=== PATIENT | male | born 1965 | race Caucasian/White ===

== ENCOUNTER 2024-09-22 16:31 | Inpatient (IN) ==
--- NOTE | 2024-09-22 17:08 | Emergency Department Note ---
Impression & Plan Parkinson disease, PSP (progressive supranuclear palsy), Fall, Decubitus ulcer of sacral area ED Provider Note Provider: Jasper Parrish MD CHIEF COMPLAINT: Fall HISTORY OF PRESENT ILLNESS: Patient is a 59-year-old gentleman unfortunate history of advanced Parkinson's disease as well as PSP presenting here today the ambulance from his home. Patient states he was trying to fill 2 of his water bottles and tripped on a snowshoe and fell to the ground. Patient states he is able to extend his hands and lower himself and he did not strike his head or hurt his face at all. Denies injuring his arms. Denies any other pain complaints. Nursing report that EMS had concerns that the patient's house was not in the best of States. Patient states he does live there with his mother who is elderly and that his brother lives nearby and checks on him frequently. He denies any loss of consciousness. No chest pain or shortness of breath due to. Patient has been to wound care regarding some buttock irritations and brother has been trying to bandage these as able. States they are looking somewhat better. PAST MEDICAL HISTORY: As noted above MEDICATIONS: Reviewed home medication list no anticoagulants SOCIAL HISTORY: Resides at home PHYSICAL EXAM: GENERAL: alert and oriented in no acute distress on stretcher Head: normocephalic and atraumatic EYES: No injection, discharge or icterus. PERRL, EOMI. NECK: Trachea midline. Supple. ENT: Mucous membranes pink and moist. LUNGS: Airway patent. No retractions. Breath sounds clear HEART: Regular rate and rhythm. No chest wall tenderness ABDOMEN: Soft and non-tender, without guarding or rebound. No flank tenderness. SKIN: Acyanotic, warm, dry, there is some bilateral slight right area and grade 1 decubitus ulcerations on the bilateral buttocks but no large ulcers or fluctuant areas noted. EXTREMITIES: Without swelling, tenderness or deformity NEUROLOGICAL: No facial droop with some slight dysarthria at times. Generally weak. Normal strength and tone in the extremities. Sensation to gross touch normal. Patient's laboratory studies and imaging reviewed. Differential includes traumatic injury, infection, dehydration, metabolic abnormality, hypo/hyperglycemia, electrolyte disturbance, anemia, hypoxia, cardiac sources, intracerebral event, toxicologic, neurologic, as well as other pathologies. IMPRESSION/MEDICAL DECISION MAKING: Patient not on high risk blood thinners. Suffered a fall and with his Parkinson's seems mechanical in nature. No LOC reported. States he lowered himself with his hands. Denies any pain. Patient states he is at his baseline and wishes to go home. Seen with brother who later arrived. Patient be ambulated by nursing to check ambulatory status. Given his lack of complaints do not know that blood work or imaging is necessary at this time. Long discussion with case management the patient agreeable to stay for further evaluation. Wounds of the buttocks are minimal and grade 1 at this time do not appear severely infected or ulcerated or abscessed. Basic blood work ordered. Nursing apply additional wound dressings to the buttocks and will bring in for further care and arrangement of possible home resources for the patient. Do not believe he is septic or superinfected or suffered any significant trauma from his fall today. Do not believe we need additional imaging. Blood work is returned with some leukocytosis. No other significant abnormality. Again the sacral buttock wounds are minimal. Will discuss with the hospitalist team and they will monitor further. Order urine studies to exclude infection here. He is afebrile and does not appear septic at this point. DIAGNOSIS: Fall, Parkinson disease DISPOSITION: Hospitalist will evaluate Patient was agreeable with this plan. Past Med/Surg History Problem List (Updated 09/22/24 @ 20:48 by Jasper Parrish M.D.) Decubitus ulcer of sacral area (Acute) Fall (Acute) Stage III pressure ulcer of buttock Dyspnea on exertion Urinary incontinence EKG abnormalities Tachycardia Ambulatory dysfunction Parkinson disease (Acute) Hypertension Elevated glucose Hyperbilirubinemia PSP (progressive supranuclear palsy) (Acute) Health care maintenance Excessive cerumen in both ear canals Hyperglycemia Medical History Tremor of right hand Sick Elevated TSH Elevated hemoglobin Shingles Elevated blood pressure reading Surgical History H/O oral surgery Family History Grandfather (Maternal) Myocardial infarction Brother Hypertension Mother Rheumatoid arthritis Denies family history of Colon cancer Ovarian cancer Prostate cancer Diabetes Breast cancer Stroke Social History Smoking Status: Never smoker Tobacco Type: Declines Second Hand Exposure: No; Do You Dip or Chew Tobacco: No; Hx Alcohol Use: No Hx Substance Use: No Preferred Language: Chilean Communication Ability: Effective Visual Impairment: Limited Hearing Ability: Normal Clock Repair Technician Required: No Beliefs That Will Affect Care: None marital status: Single Current Living Situation: Parent 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 occupational status: 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 Feels Safe at Home: Yes Childhood Exposure to Second-Hand Smoke: No Dental Care, Regularly: No Physical Activity Frequency: Does not Exercise Seatbelt Use: always Assistive Devices: Cane, Glasses, Lift Chair and Walker Allergies Allergies Allergy/AdvReac Type Severity Reaction Status Date / Time tetanus toxoid, adsorbed AdvReac Severe Significant Verified 09/20/24 13:24 allergic reaction Home Meds Home Medications Medication Instructions Recorded Confirmed ascorbic acid (vitamin C) 1,000 mg 1 gm PO DAILY 01/08/19 09/22/24 tablet cholecalciferol (vitamin D3) 25 1,000 units PO DAILY 01/08/19 09/22/24 mcg (1,000 unit) capsule multivitamin (Daily Multi-Vitamin 1 tab PO DAILY 01/08/19 09/22/24 tablet) docusate sodium 100 mg capsule 100 mg PO DAILY 01/11/24 09/22/24 (Colace) carbidopa 87.5 mg-levodopa ER 350 2 cap PO TID 08/29/24 09/22/24 mg capsule,immed and extend release (Crexont) carbidopa ER 50 mg-levodopa 200 mg 1 tab PO TID 09/22/24 09/22/24 tablet,extended release nystatin 100,000 unit/gram topical 1 applic topical TID 09/22/24 09/22/24 powder (Klayesta) ropinirole 3 mg tablet 3 mg PO TID 09/22/24 09/22/24 Previous Rx's Medication Instructions Recorded lisinopril 40 mg tablet 40 mg PO DAILY #30 tabs 06/19/24 gabapentin 100 mg capsule 100 mg PO TID 30 days #90 caps 07/24/24 amantadine HCl 100 mg capsule 100 mg PO BID #180 caps 08/06/24 Results & Data (ED) Vital Signs Vital Signs - 24 hr 09/22/24 16:42 09/22/24 16:42 09/22/24 17:11 Temperature 37.2 C Temperature Source Temporal Artery Scan Pulse Rate 109 H Pulse Rate [Apical] Pulse Rate from SpO2 Sensor Pulse Rhythm Regular Pulse Rhythm [Apical] Pulse Strength [Apical] Respiratory Rate 16 Respiratory Effort / Characteristics Non-Labored Spontaneous Non-Labored Spontaneous Respiratory Depth Normal Normal Respiratory Pattern Regular Regular Blood Pressure 106/78 Blood Pressure [Right Arm] Blood Pressure Mean 87 Blood Pressure Mean [Right Arm] Blood Pressure Position Lying Blood Pressure Position [Right Arm] Pulse Oximetry 92 Oxygen Delivery Method Room Air Room Air Sepsis Recent Fever Within 48 Hours No Sepsis New/Unexplained Change in Mental Status N/A Sepsis Action Taken by Nursing No Action Required 09/22/24 17:20 09/22/24 17:30 09/22/24 18:30 Temperature Temperature Source Pulse Rate 108 H 105 H 105 H Pulse Rate [Apical] Pulse Rate from SpO2 Sensor 106 H Pulse Rhythm Pulse Rhythm [Apical] Pulse Strength [Apical] Respiratory Rate 20 25 H Respiratory Effort / Characteristics Respiratory Depth Respiratory Pattern Blood Pressure 131/85 132/89 Blood Pressure [Right Arm] Blood Pressure Mean 95 101 Blood Pressure Mean [Right Arm] Blood Pressure Position Blood Pressure Position [Right Arm] Pulse Oximetry 94 Oxygen Delivery Method Sepsis Recent Fever Within 48 Hours Sepsis New/Unexplained Change in Mental Status Sepsis Action Taken by Nursing 09/22/24 20:07 Temperature Temperature Source Pulse Rate Pulse Rate [Apical] 103 H Pulse Rate from SpO2 Sensor Pulse Rhythm Pulse Rhythm [Apical] Regular Pulse Strength [Apical] Normal Respiratory Rate 22 Respiratory Effort / Characteristics Non-Labored Spontaneous Respiratory Depth Normal Respiratory Pattern Regular Blood Pressure Blood Pressure [Right Arm] 165/95 H Blood Pressure Mean Blood Pressure Mean [Right Arm] 118 Blood Pressure Position Blood Pressure Position [Right Arm] Lying Pulse Oximetry 95 Oxygen Delivery Method Room Air Sepsis Recent Fever Within 48 Hours Sepsis New/Unexplained Change in Mental Status Sepsis Action Taken by Nursing Laboratory Data 09/22/24 Unknown 09/22/24 Unknown Lab Results 09/22/24 09/22/24 Range/Units 20:25 Unknown WBC 17.36 H (4.8-10.8) K/ul RBC 5.40 (4.70-6.10) M/uL Hgb 15.7 (14.0-18.0) g/dl Hct 47.3 (42.0-52.0) % MCV 87.6 (80.0-100.0) fL MCH 29.1 (25.0-34.0) pg MCHC 33.2 (32.0-36.0) g/dL RDW Std Deviation 46.0 (36.4-46.3) fL RDW Coeff of Diana 14.4 (11.5-14.5) % Plt Count 259 (130-400) K/uL MPV 9.3 L (9.4-12.4) fL Immature Gran % (Auto) 2.0 % Neut % (Auto) 85.5 % Lymph % (Auto) 6.5 % [place] % (Auto) 5.4 % Eos % (Auto) 0.3 % Baso % (Auto) 0.3 % Neut # (Auto) 14.85 H (1.40-6.50) K/uL Lymph # (Auto) 1.12 L (1.20-3.40) K/uL [place] # (Auto) 0.93 H (0.11-0.59) K/uL Eos # (Auto) 0.05 (0.00-0.50) K/uL Baso # (Auto) 0.06 (0.00-0.20) K/uL Immature Gran # (Auto) 0.35 H (0.01-0.20) K/uL Sodium 135 L (136-145) mmol/L Potassium 3.9 (3.5-5.1) mmol/L Chloride 103 (98-107) mmol/L Carbon Dioxide 24 (21-32) mmol/L Anion Gap 8 (3-11) BUN 22 (6-23) mg/dl Creatinine 0.69 (0.6-1.4) mg/dl Est Cr Clr Drug Dosing 126.5 ml/min eGFR 105.29 BUN/Creatinine Ratio 31.9 H (10-20) Glucose 117 H (70-99(Fasting)) mg/dl Calcium 9.2 (8.6-10.3) mg/dl Total Bilirubin 2.1 H (0.2-1.0) mg/dl AST 24 (13-39) U/L ALT 6 L (7-52) U/L Alkaline Phosphatase 89 (34-104) U/L Total Protein 6.7 (6.0-8.3) gm/dl Albumin 3.9 (3.4-5.0) gm/dl Globulin 2.8 (2.5-4.0) gm/dl Albumin/Globulin Ratio 1.4 (0.9-2) Urine Comment SARS-CoV-2, RNA, NAAT NEGATIVE (NEGATIVE) Discharge Plan Visit Data Chief Complaint: Fall ED Provider: Jasper Parrish Discharge Problem: Parkinson disease, PSP (progressive supranuclear palsy), Fall, Decubitus ulcer of sacral area Patient Disposition: Being Evaluated by Hospitalist Condition: Fair Forms Stand Alone Forms: My [facility] Prescriptions Prescriptions: No Action gabapentin 100 mg capsule 100 mg PO TID 30 Days Qty: 90 2RF amantadine HCl 100 mg capsule 100 mg PO BID Qty: 180 1RF multivitamin [Daily Multi-Vitamin] tablet 1 tab PO DAILY ascorbic acid (vitamin C) 1,000 mg tablet 1 gm PO DAILY cholecalciferol (vitamin D3) 1,000 unit capsule 1,000 units PO DAILY docusate sodium [Colace] 100 mg capsule 100 mg PO DAILY Crexont 87.5-350 mg capsule,IR -extend rel,biphase 2 cap PO TID lisinopril 40 mg tablet 40 mg PO DAILY Qty: 30 5RF nystatin [Klayesta] 100,000 unit/gram powder 1 applic TOPICAL TID ropinirole 3 mg tablet 3 mg PO TID carbidopa-levodopa 50-200 mg tablet extended release 1 tab PO TID Referrals Referrals: Jamie Morfin MD [Primary Care Provider] -
[2024-09-22 18:45] LABS: Hematocrit (blood only) 47.3 % (42.0-52.0); Hemoglobin 15.7 g/dl (14.0-18.0); Immature Granulocytes # (auto) 0.35 K/uL (0.01-0.20); Immature Granulocytes % (auto) 2.0 %; Mean Corpuscular Hemoglobin 29.1 pg (25.0-34.0); Mean Corpuscular Volume 87.6 fL (80.0-100.0); Platelet Count 259 K/uL (130-400); RDW Standard Deviation 46.0 fL (36.4-46.3); Red Blood Count 5.40 M/uL (4.70-6.10); White Blood Count 17.36 K/ul (4.8-10.8)
[2024-09-22 19:03] LABS: Alanine Aminotransferase 6.0 U/L (7-52); Albumin Globulin Ratio 1.4 (0.9-2); Alkaline Phosphatase 89.0 U/L (34-104); Anion Gap 8.0 (3-11); Bilirubin,Total 2.1 mg/dl (0.2-1.0); Blood Urea Nitrogen 22.0 mg/dl (6-23); Calcium 9.2 mg/dl (8.6-10.3); Carbon Dioxide 24.0 mmol/L (21-32); Chloride 103.0 mmol/L (98-107); Creatinine Clr Calc Pharmacy 126.5 ml/min; Globulin 2.8 gm/dl (2.5-4.0); Glucose 117.0 mg/dl (70-99(Fasting)); Potassium 3.9 mmol/L (3.5-5.1); Sodium 135.0 mmol/L (136-145); Total Protein 6.7 gm/dl (6.0-8.3)
--- NOTE | 2024-09-22 19:31 | History & Physical Report ---
Date of Service September 22, 2024 Assessment & Plan (1) Ambulatory dysfunction: (2) Stage III pressure ulcer of buttock: (3) Hyperbilirubinemia: Plan 59-year-old male PMHx advanced Parkinson's disease, HTN, urinary incontinence, and baseline ambulatory dysfunction presenting after reported mechanical fall from home day of arrival. Workup significant for leukocytosis and given pt was covered in urine on arrival, UA pending. Did have very faint expiratory wheezing of anterior chest on exam, but not hypoxic or with complaints; pending CXR. Elevated bilirubin is similar to prior findings, no abdominal pain and therefore not suspecting acute pathology. Will manage wound on buttock and admit for ambulatory dysfunction. #Ambulatory dysfunction/Fall/Parkinson's disease Prior history of ambulatory dysfunction and Parkinson's disease (diagnosed 2017), follows with neurology (last visit 08/29/2024) reporting from fall from home which she reports is mechanical in nature. No current complaints. OF NOTE, Crexont non-formulary and will need brought in by family. Spoke with pharmacist and will provide additional dose of Sinemet the night of admission until Crexont can be brought from home. - CBC with a leukocytosis 17.36, stable H&H; CMP sodium 135 (corrected 135), BUN/creatinine ratio 31.9, glucose 117, bilirubin 2.1- CBC, BMP am - CXR pending - UA not indicative of infection and no bacteria, known urinary incontinence - Vela cath ordered and placed, bladder scan prn - IVF LR @ 80 mL/hr x 500 mL at admission pending further workup - will add more as appropriate - Amantadine, carbidopa levodopa, ropinirole - continue - Fall + aspiration precautions - PT/OT ordered - appreciate assistance - Case management consulted - appreciate assistance #H/o Stage III pressure ulcer of buttocks, R and L/Intertrigo (groin, scrotum) Following with wound healing clinic, most recent visit 09/20/2024. Weekly follow up and home health was to be arranged. Images as above in physical exam portion. - CBC with leukocytosis, however, do not suspect skin source - Wound culture low counts of mixed nedra from 09/20/2024 - Dress w/ Aquacel Ag, Butt paste, ketoconazole -- continue - Rotate q2h - Wound care consulted - appreciate input + recs #Elevated bilirubin H/o abnormal liver enzymes in 2019, evaluated again in 05/2023 and resolved. Currently without abdominal pain. - Total bili 2.1, otherwise AST 24, ALT 6, alk phos 89 - No US at admission given prior elevation and no abdominal pain -- consider US if worsening or development of pain #HTN- Lisinopril - continue Dispo: Admit, med/sx VTE Prophylaxis: Lovenox This document was dictated utilizing [employer]. Please excuse any grammatical errors that may be secondary to use of this software. Admission and Anticipated Discharge Date Admission Date: 09/22/2024 History of Present Illness Chief Complaint: Fall Primary Care Provider: Jamie Morfin MD 59-year-old male PMHx advanced Parkinson's disease, HTN, urinary incontinence, and baseline ambulatory dysfunction presenting after reported mechanical fall from home day of arrival. Pt states that he tripped with his walker over a snow shoe that had fallen out of its normal place. He reports that he was "doing too much" and this is why he fell. He was using his walker at the time of the fall. He fell forward, catching himself with his hands and did not land on his face or hit his head. He denies LOC. No blood thinners. He states that he usually has a lift chair that helps him to move around, but ~ 3-4 days ago the remote broke for this and so he has been unable to use it. Due to this, he has been using his legs more often to get around and feels more weak because of this. He denies symptoms before the fall to include chest pain, SOB, dizziness, or presyncope. He is having no pain at present. His brother raises concerns of the patient caring for himself at home given the poor living conditions and worsening of PD. The patient is at his normal baseline in terms of mental status and functioning. He has two healing pressure ulcers on his buttock that he recently completed antibiotics for, his brother stating that these look much better than they had previously. Denies CP, SOB, palpitations, abdominal pain, N/V/D, LUTS, URI symptoms, F/C, numbness/tingling, pain, dizziness, or syncope. Did not take his night time medications, and unclear if he took all of his AM medications as his brother states that he occasionally forgets. Pt is in no pain at this time and resting comfortably. ED evaluation reveals CBC with leukocytosis 17.36, stable H&H; CMP sodium 135, BUN/creatinine ratio 31.9, glucose 117, bilirubin 2.1, ALT 6; COVID-negative; UA pending; no imaging performed, CXR ordered and pending; no EKG performed, ordered and pending. Please see Dr. Yeager's attestation for adjustments/additions to treatment plan. Allergies Allergy/AdvReac Type Severity Reaction Status Date / Time tetanus toxoid, adsorbed AdvReac Severe Significant Verified 09/20/24 13:24 allergic reaction Home Medications Medication Instructions Recorded Confirmed Type ascorbic acid (vitamin C) 1,000 mg 1 gm PO DAILY 01/08/19 09/22/24 History tablet cholecalciferol (vitamin D3) 25 1,000 units PO DAILY 01/08/19 09/22/24 History mcg (1,000 unit) capsule multivitamin (Daily Multi-Vitamin 1 tab PO DAILY 01/08/19 09/22/24 History tablet) docusate sodium 100 mg capsule 100 mg PO DAILY 01/11/24 09/22/24 History (Colace) lisinopril 40 mg tablet 40 mg PO DAILY #30 tabs 06/19/24 09/22/24 Rx gabapentin 100 mg capsule 100 mg PO TID 30 days #90 caps 07/24/24 09/22/24 Rx amantadine HCl 100 mg capsule 100 mg PO BID #180 caps 08/06/24 09/22/24 Rx carbidopa 87.5 mg-levodopa ER 350 2 cap PO TID 08/29/24 09/22/24 History mg capsule,immed and extend release (Crexont) carbidopa ER 50 mg-levodopa 200 mg 1 tab PO TID 09/22/24 09/22/24 History tablet,extended release nystatin 100,000 unit/gram topical 1 applic topical TID 09/22/24 09/22/24 History powder (Klayesta) ropinirole 3 mg tablet 3 mg PO TID 09/22/24 09/22/24 History Past Med/Surg History Problem List (Updated 09/22/24 @ 20:48 by Jasper Parrish M.D.) Decubitus ulcer of sacral area (Acute) Fall (Acute) Stage III pressure ulcer of buttock Dyspnea on exertion Urinary incontinence EKG abnormalities Tachycardia Ambulatory dysfunction Parkinson disease (Acute) Hypertension Elevated glucose Hyperbilirubinemia PSP (progressive supranuclear palsy) (Acute) Health care maintenance Excessive cerumen in both ear canals Hyperglycemia Medical History Tremor of right hand Sick Elevated TSH Elevated hemoglobin Shingles Elevated blood pressure reading Surgical History H/O oral surgery Family History Grandfather (Maternal) Myocardial infarction Brother Hypertension Mother Rheumatoid arthritis Denies family history of Colon cancer Ovarian cancer Prostate cancer Diabetes Breast cancer Stroke Social History Smoking Status: Never smoker Tobacco Type: Declines Second Hand Exposure: No; Do You Dip or Chew Tobacco: No; Hx Alcohol Use: No Hx Substance Use: No Preferred Language: Tajik Communication Ability: Effective Visual Impairment: Limited Hearing Ability: Normal Museum Tour Guide Required: No Beliefs That Will Affect Care: None marital status: Single Current Living Situation: Parent current occupational status: retired current occupation: [employer] Feels Safe at Home: Yes Childhood Exposure to Second-Hand Smoke: No Dental Care, Regularly: No Physical Activity Frequency: Does not Exercise Seatbelt Use: always Assistive Devices: Cane, Glasses, Lift Chair and Walker Review of Systems 2 Review of Systems: All systems reviewed & are unremarkable except as noted in Subjective Physical Exam 2 Physical Exam: General: No acute distress, at baseline per brother Skin: Warm and dry; skin tear to LLE, erythematous skin to groin and scrotum, pressure ulcers bilat buttock (Dr. Yeager and MANA Gutierrez present in room during evaluation) - see images Head: Normocephalic, atraumatic Eyes: PERRL, conjunctivae clear, sclera non-icteric; wearing glasses ENT: External ear and ear canal without swelling; nose atraumatic; good dentition, tongue normal appearance, pharynx normal but appears dry Neck: Supple, no LAD Cardio: RRR, no M/G/R, S1 and S2 normal Resp: No respiratory distress, faint expiratory wheezing bilat, otherwise lungs CTA in all lobes bilaterally, no rales or rhonchi Abdomen: Soft, symmetric, nontender; No masses or hepatosplenomegaly; Bowel sounds normoactive MSK: No deformities; pulses palpable and equal; no edema. Neuro: Awake, alert; Sensation intact bilaterally; CN grossly intact Psych: Appropriate mood and affect Brother and mother present in room at time of visit. Results & Data Results & Data Vital Signs (Past 12 Hours) Vital Signs Temp Pulse Resp BP Pulse Ox O2 Del Method 09/22/24 18:30 105 H 25 H 132/89 09/22/24 17:30 105 H 20 131/85 94 09/22/24 17:20 108 H 09/22/24 17:11 Room Air 09/22/24 16:42 37.2 C 109 H 16 106/78 92 Room Air Laboratory Results 09/22/24 Unknown WBC 17.36 H RBC 5.40 Hgb 15.7 Hct 47.3 MCV 87.6 MCH 29.1 MCHC 33.2 RDW Std Deviation 46.0 RDW Coeff of Diana 14.4 Plt Count 259 MPV 9.3 L Immature Gran % (Auto) 2.0 Neut % (Auto) 85.5 Lymph % (Auto) 6.5 [place] % (Auto) 5.4 Eos % (Auto) 0.3 Baso % (Auto) 0.3 Neut # (Auto) 14.85 H Lymph # (Auto) 1.12 L [place] # (Auto) 0.93 H Eos # (Auto) 0.05 Baso # (Auto) 0.06 Immature Gran # (Auto) 0.35 H Sodium 135 L Potassium 3.9 Chloride 103 Carbon Dioxide 24 Anion Gap 8 BUN 22 Creatinine 0.69 Est Cr Clr Drug Dosing 126.5 eGFR 105.29 BUN/Creatinine Ratio 31.9 H Glucose 117 H Calcium 9.2 Total Bilirubin 2.1 H AST 24 ALT 6 L Alkaline Phosphatase 89 Total Protein 6.7 Albumin 3.9 Globulin 2.8 Albumin/Globulin Ratio 1.4 SARS-CoV-2, RNA, NAAT NEGATIVE Code Status & VTE Plan Code Status Full Supervising Physician Co-Signing Physician Notes Attending addendum: I have physically seen this patient, have supervised the JERICA's activities, and agree with the H&P unless as otherwise noted. Assessment and Plan: The patient is a 59-year-old male with past medical history including advanced Parkinson's disease, hypertension, urinary incontinence, baseline ambulatory dysfunction, history of stage III pressure ulcer of buttock, progressive supranuclear palsy, and hyperglycemia. Patient is referred to the emergency department after being found by family and friends following a mechanical fall at home. Patient was noted to be covered in urine by EMS upon arrival there, and EMS recommended that patient be assessed for new living situation. 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
[2024-09-22] MEDS ORDERED: ZINC OXIDE 16% 45 APPLN, HYDROCORTISONE 1% 45 APPLN, ALUMINUM/MAGNESIUM SUSP 15 ML, BAR... TOP PRN (20:14)
[2024-09-22] MEDS ORDERED: BUTT PASTE (ZINC OXIDE 16%) 171 APPLN/57 GM JAR EXT PRN (20:26)
[2024-09-22 20:50] LABS: Appearance Urine Clear (Clear); Bacteria Urine Automated None Seen (None Seen); Epithelial Cell Urine Auto 0-2 /hpf (0-2); Glucose Urine UA Negative (Negative); RBC Urine Automated 0-2 /hpf (0-2); WBC Urine Automated 0-5 /hpf (0-5)
[2024-09-22] MEDS ORDERED: ONDANSETRON INJ 2 MG/ML 2 ML VIAL IV PRN (21:25)
[2024-09-22] MEDS ORDERED: POLYETHYLENE (MIRALAX) 17 GM PACK PO PRN (21:25)
[2024-09-22] MEDS ORDERED: MAGNESIUM HYDROXIDE SUSP 30 ML UDC PO PRN (21:25)
[2024-09-22] MEDS: LACTATED RINGER'S 1,000 ML IV SCH (21:57)
[2024-09-22] MEDS: ENOXAPARIN INJ 40 MG/0.4 ML SYR SQ SCH (21:59)
[2024-09-22] MEDS: AMANTADINE HCL 100 MG CAPSULE PO STA (22:01)
[2024-09-22] MEDS: GABAPENTIN 100 MG CAP PO STA (22:01)
[2024-09-22] MEDS: CARBIDOPA/LEVODOPA 50/200MG EXT REL TAB PO STA ×2 (22:09→22:22)
[2024-09-22] MEDS: GABAPENTIN 100 MG CAP PO SCH (22:22)
[2024-09-22] MEDS: CARBIDOPA/LEVODOPA 50/200MG EXT REL TAB PO SCH (22:22)
[2024-09-22] MEDS: AMANTADINE HCL 100 MG CAPSULE PO SCH (22:22)
[2024-09-22] MEDS: KETOCONAZOLE 2% CR 15 GM TUBE EXT PRN (22:51)
[2024-09-22] MEDS: BUTT PASTE (ZINC OXIDE 16%) 171 APPLN/57 GM JAR TOP PRN (22:52)
--- NOTE | 2024-09-22 23:20 | XRay Report ---
Exam(s): XR CXR 2 VIEWS EXAM: XR Chest, 2 Views CLINICAL HISTORY: Reason for exam: Wheezing, WBC. TECHNIQUE: Frontal and lateral views of the chest. COMPARISON: 06/23/2022 FINDINGS: Lungs: Prominent pulmonary vasculature, exaggerated by large body habitus. No consolidation. Pleural space: Unremarkable. No pneumothorax. Heart: The cardiac silhouette is borderline enlarged. Mediastinum: Unremarkable. Normal mediastinal contour. Bones/joints: Unremarkable. No acute fracture. Upper abdomen: Unremarkable as visualized. No pneumoperitoneum under the diaphragm. IMPRESSION: 1. Prominent pulmonary vasculature, exaggerated by large body habitus. Probable mild central edema, less likely pneumonia. 2. The cardiac silhouette is borderline enlarged. Electronically signed by: Jasper Mensah MD 09/22/24 23:18 PM
[2024-09-23 06:30] LABS: Hematocrit (blood only) 46.8 % (42.0-52.0); Hemoglobin 15.4 g/dl (14.0-18.0); Mean Corpuscular Hemoglobin 28.8 pg (25.0-34.0); Mean Corpuscular Volume 87.5 fL (80.0-100.0); Platelet Count 243 K/uL (130-400); RDW Standard Deviation 46.0 fL (36.4-46.3); Red Blood Count 5.35 M/uL (4.70-6.10); White Blood Count 11.60 K/ul (4.8-10.8)
[2024-09-23 07:09] LABS: Anion Gap 7.0 (3-11); Blood Urea Nitrogen 20.0 mg/dl (6-23); Calcium 8.9 mg/dl (8.6-10.3); Carbon Dioxide 26.0 mmol/L (21-32); Chloride 103.0 mmol/L (98-107); Creatinine Clr Calc Pharmacy 124.8 ml/min; Glucose 107.0 mg/dl (70-99(Fasting)); Potassium 3.8 mmol/L (3.5-5.1); Sodium 136.0 mmol/L (136-145)
[2024-09-23] MEDS: AMANTADINE HCL 100 MG CAPSULE PO SCH (07:38)
[2024-09-23] MEDS: GABAPENTIN 100 MG CAP PO SCH (07:38)
[2024-09-23] MEDS: ASCORBIC ACID 500 MG TAB PO SCH (07:39)
[2024-09-23] MEDS: CARBIDOPA/LEVODOPA 50/200MG EXT REL TAB PO SCH (07:39)
[2024-09-23] MEDS: DOCUSATE SODIUM 100 MG CAP PO SCH ×2 (09:09→20:20)
[2024-09-23] MEDS: CARBIDOPA/LEVODOPA 25-250 1 EA TAB PO SCH (17:02)
--- NOTE | 2024-09-23 18:50 | Hospitalist Progress Note ---
Date of Service September 23, 2024 Assessment & Plan (1) Ambulatory dysfunction: (2) Stage III pressure ulcer of buttock: (3) Hyperbilirubinemia: Plan 59-year-old male PMHx advanced Parkinson's disease, HTN, urinary incontinence, and baseline ambulatory dysfunction presenting after reported mechanical fall from home day of arrival. Workup significant for leukocytosis and given pt was covered in urine on arrival, UA pending. Did have very faint expiratory wheezing of anterior chest on exam, but not hypoxic or with complaints; pending CXR. Elevated bilirubin is similar to prior findings, no abdominal pain and therefore not suspecting acute pathology. Will manage wound on buttock and admit for ambulatory dysfunction. #Ambulatory dysfunction/Fall/Parkinson's disease Prior history of ambulatory dysfunction and Parkinson's disease (diagnosed 2017), follows with neurology (last visit 08/29/2024) reporting from fall from home which she reports is mechanical in nature. No current complaints. OF NOTE, Crexont non-formulary and will need brought in by family. Spoke with pharmacist and will provide additional dose of Sinemet the night of admission until Crexont can be brought from home. - CBC with a leukocytosis 17.36, stable H&H; CMP sodium 135 (corrected 135), BUN/creatinine ratio 31.9, glucose 117, bilirubin 2.1- CBC, BMP am - no infection found - Amantadine, carbidopa levodopa, ropinirole - continue - Fall + aspiration precautions - PT/OT ordered - awaiting to be seen - Case management consulted #H/o Stage III pressure ulcer of buttocks, R and L/Intertrigo (groin, scrotum) Following with wound healing clinic, most recent visit 09/20/2024. Weekly follow up and home health was to be arranged. Images as above in physical exam portion. - CBC with leukocytosis, however, do not suspect skin source - Wound culture low counts of mixed nedra from 09/20/2024 - Dress w/ Aquacel Ag, Butt paste, ketoconazole -- continue - Rotate q2h - Wound care consulted - appreciate input + recs #Elevated bilirubin H/o abnormal liver enzymes in 2019, evaluated again in 05/2023 and resolved. Currently without abdominal pain. - Total bili 2.1, otherwise AST 24, ALT 6, alk phos 89 - No US at admission given prior elevation and no abdominal pain -- consider US if worsening or development of pain #HTN- Lisinopril - continue VTE Prophylaxis: Lovenox Dispo: Admit, med/sx Admission and Anticipated Discharge Date Admission Date: September 22, 2024 Subjective Lives at home with mother. Brother lives close by and helps him with all medications. Per last neurology note ropinirole reduced to 2mg TID and takes three different forms of carbidopa-levodopa. Feels generally weak. Not yet had PT today. Physical Exam Respiratory: normal respiratory effort, lungs clear to auscultation Cardiovascular: RRR, no murmur, no edema Neurologic: moves all extremities and awake; no focal motor deficits and not confused Motor/Sensory: + tremor Results & Data Results & Data Vital Signs (Past 12 Hours) Vital Signs Temp Pulse Pulse Resp BP Pulse Ox O2 Del Method 09/23/24 16:48 36.8 C 94 H 16 134/89 94 Room Air 09/23/24 16:00 36.9 C 97 H 18 110/70 94 Room Air 09/23/24 07:15 Room Air 09/23/24 07:15 36.4 C L 88 16 154/85 H 96 Room Air PG Care Time/CCT Total # of Minutes Spent Total Time Spent with Patient: Total time spent is greater than 50% in coordination of care (as documented) at patient's floor/unit and/or counseling patient: Coding Level of Care Code 99012 SUB INP/OBS CARE 2/35MIN Diagnoses Ambulatory dysfunction R26.2 Stage III pressure ulcer of buttock L89.303 Hyperbilirubinemia E80.6
[2024-09-23] MEDS: LEVODOPA PO SCH (20:19)
[2024-09-23] MEDS: CARBIDOPA PO SCH (20:19)
--- NOTE | 2024-09-24 08:09 | Electrocardiogram Report ---
Test Reason : Blood Pressure : */* mmHG Vent. Rate : 98 BPM Atrial Rate : 98 BPM P-R Int : 164 ms QRS Dur : 116 ms QT Int : 352 ms P-R-T Axes : 44 -56 32 degrees QTcB Int : 449 ms Normal sinus rhythm Left anterior fascicular block Incomplete right bundle branch block Left ventricular hypertrophy with QRS widening Possible Lateral infarct , age undetermined Abnormal ECG When compared with ECG of 23-Jun-2022 16:49, Left anterior fascicular block is now Present Confirmed by Nesha Adams (Sincere) on 09/24/2024 8:08:39 AM Referred By: REFERRED SELF Confirmed By: Nesha Adams
[2024-09-24 08:51] LABS: Hematocrit (blood only) 47.1 % (42.0-52.0); Hemoglobin 16.2 g/dl (14.0-18.0); Immature Granulocytes # (auto) 0.20 K/uL (0.01-0.20); Immature Granulocytes % (auto) 1.8 %; Mean Corpuscular Hemoglobin 29.8 pg (25.0-34.0); Mean Corpuscular Volume 86.7 fL (80.0-100.0); Platelet Count 252 K/uL (130-400); RDW Standard Deviation 45.1 fL (36.4-46.3); Red Blood Count 5.43 M/uL (4.70-6.10); White Blood Count 10.90 K/ul (4.8-10.8)
[2024-09-24 09:12] LABS: Alanine Aminotransferase 5.0 U/L (7-52); Albumin Globulin Ratio 1.5 (0.9-2); Alkaline Phosphatase 85.0 U/L (34-104); Anion Gap 8.0 (3-11); Bilirubin,Total 2.2 mg/dl (0.2-1.0); Blood Urea Nitrogen 21.0 mg/dl (6-23); Calcium 9.2 mg/dl (8.6-10.3); Carbon Dioxide 24.0 mmol/L (21-32); Chloride 103.0 mmol/L (98-107); Creatinine Clr Calc Pharmacy 136.7 ml/min; Globulin 2.8 gm/dl (2.5-4.0); Glucose 96.0 mg/dl (70-99(Fasting)); Potassium 3.8 mmol/L (3.5-5.1); Sodium 135.0 mmol/L (136-145); Total Protein 6.9 gm/dl (6.0-8.3)
[2024-09-24] MEDS: ACETAMINOPHEN 325 MG TAB PO PRN (10:11)
--- NOTE | 2024-09-24 19:44 | Hospitalist Progress Note ---
Date of Service September 24, 2024 Assessment & Plan (1) Ambulatory dysfunction: (2) Stage III pressure ulcer of buttock: (3) Hyperbilirubinemia: Plan 59-year-old male PMHx advanced Parkinson's disease, HTN, urinary incontinence, and baseline ambulatory dysfunction presenting after reported mechanical fall from home day of arrival. Workup significant for leukocytosis and given pt was covered in urine on arrival, UA pending. Did have very faint expiratory wheezing of anterior chest on exam, but not hypoxic or with complaints; pending CXR. Elevated bilirubin is similar to prior findings, no abdominal pain and therefore not suspecting acute pathology. Will manage wound on buttock and admit for ambulatory dysfunction. #Ambulatory dysfunction/Fall/Parkinson's disease Prior history of ambulatory dysfunction and Parkinson's disease (diagnosed 2017), follows with neurology (last visit 08/29/2024) reporting from fall from home which she reports is mechanical in nature. No current complaints. OF NOTE, Crexont non-formulary and will need brought in by family. Spoke with pharmacist and will provide additional dose of Sinemet the night of admission until Crexont can be brought from home. - CBC with a leukocytosis 17.36, stable H&H; CMP sodium 135 (corrected 135), BUN/creatinine ratio 31.9, glucose 117, bilirubin 2.1- CBC, BMP am - no infection found - Amantadine, carbidopa levodopa, ropinirole - continue - Fall + aspiration precautions - PT/OT ordered - recommending rehabiltation - Case management consulted #H/o Stage III pressure ulcer of buttocks, R and L/Intertrigo (groin, scrotum) Following with wound healing clinic, most recent visit 09/20/2024. Weekly follow up and home health was to be arranged. Images as above in physical exam portion. - CBC with leukocytosis, however, do not suspect skin source - Wound culture low counts of mixed nedra from 09/20/2024 - Dress w/ Aquacel Ag, Butt paste, ketoconazole -- continue - Rotate q2h - Wound care consulted - appreciate input + recs #HTN- Lisinopril - continue VTE Prophylaxis: Lovenox Dispo: Admit, med/sx, medically stable for discharge pending placement Admission and Anticipated Discharge Date Admission Date: September 22, 2024 Subjective No acute concerns or questions. Appears to be having more movement disorder today with lip smacking. Physical Exam Respiratory: normal respiratory effort, lungs clear to auscultation Cardiovascular: RRR, no murmur, no edema Neurologic: moves all extremities and awake; no focal motor deficits and not confused Motor/Sensory: + tremor lip smacking and rhythmic movements present Results & Data Results & Data Vital Signs (Past 12 Hours) Vital Signs Temp Pulse Resp BP Pulse Ox O2 Del Method 09/24/24 14:46 36.6 C 78 16 100/65 96 Room Air 09/24/24 08:34 123/80 09/24/24 07:45 Room Air PG Care Time/CCT Total # of Minutes Spent Total Time Spent with Patient: Total time spent is greater than 50% in coordination of care (as documented) at patient's floor/unit and/or counseling patient: Coding Level of Care Code 92335 SUB INP/OBS CARE 03/10MIN Diagnoses Ambulatory dysfunction R26.2 Stage III pressure ulcer of buttock L89.303 Hyperbilirubinemia E80.6
--- NOTE | 2024-09-25 22:48 | Hospitalist Progress Note ---
Date of Service September 25, 2024 Assessment & Plan (1) Ambulatory dysfunction: (2) Stage III pressure ulcer of buttock: (3) Hyperbilirubinemia: (4) Parkinson disease: Plan 59-year-old male PMHx advanced Parkinson's disease, HTN, urinary incontinence, and baseline ambulatory dysfunction presenting after reported mechanical fall from home day of arrival. #Ambulatory dysfunction/Fall/Parkinson's disease Prior history of ambulatory dysfunction and Parkinson's disease (diagnosed 2018), follows with neurology (last visit 08/29/2024) reporting from fall from home which she reports is mechanical in nature. - CBC with a leukocytosis 17.36 on admission, no infection found - WBC resolving, suspect stress demargination - Amantadine, carbidopa levodopa (on three different formulations confirmed on recent neurology note), ropinirole - continue - Fall + aspiration precautions - PT/OT ordered - recommending rehabilitation - Case management consulted #H/o Stage III pressure ulcer of buttocks, R and L/Intertrigo (groin, scrotum) Following with wound healing clinic, most recent visit 09/20/2024. Weekly follow up and home health was to be arranged. Images as above in physical exam portion. - non cellulitic appearing - Wound culture low counts of mixed nedra from 09/20/2024 - Dress w/ Aquacel Ag, Butt paste, ketoconazole -- continue - Rotate q2h - Wound care consulted - appreciate recommendations #HTN- Lisinopril - continue VTE Prophylaxis: Lovenox 40mg SQ daily Dispo: Admit, med/sx, medically stable for discharge pending placement Admission and Anticipated Discharge Date Admission Date: September 22, 2024 Subjective Having some cramping pain in left leg and right chest on any movement. Worse on palpation. Feels it is because he hasn't been out of bed enough. Awaiting rehab placement at this time. Physical Exam Respiratory: normal respiratory effort, lungs clear to auscultation Cardiovascular: RRR, no murmur, no edema Neurologic: moves all extremities and awake; no focal motor deficits and not confused Motor/Sensory: + tremor lip smacking and rhythmic movements resolved Results & Data Results & Data Vital Signs (Past 12 Hours) Vital Signs Temp Pulse Resp BP Pulse Ox O2 Del Method 09/25/24 14:37 36.6 C 98 H 16 106/71 96 Room Air PG Care Time/CCT Total # of Minutes Spent Total Time Spent with Patient: Total time spent is greater than 50% in coordination of care (as documented) at patient's floor/unit and/or counseling patient: Coding Level of Care Code 34773 SUB INP/OBS CARE 1/25MIN Diagnoses Ambulatory dysfunction R26.2 Stage III pressure ulcer of buttock L89.303 Hyperbilirubinemia E80.6 Parkinson disease G20
[2024-09-26] MEDS: MoRPHine SULFATE 2 MG/ML CARP IV STA (02:51)
--- NOTE | 2024-09-26 13:08 | Electrocardiogram Report ---
Test Reason : Blood Pressure : */* mmHG Vent. Rate : 102 BPM Atrial Rate : 111 BPM P-R Int : 256 ms QRS Dur : 114 ms QT Int : 416 ms P-R-T Axes : 73 -54 20 degrees QTcB Int : 542 ms Poor data quality, interpretation may be adversely affected Sinus tachycardia Right bundle branch block Left anterior fascicular block Bifascicular block Voltage criteria for left ventricular hypertrophy Abnormal ECG When compared with ECG of 22-Sep-2024 21:43, Significant changes have occurred Confirmed by Mainor Goldberg ([id number]) on 09/26/2024 1:08:05 PM Referred By: REFERRED SELF Confirmed By: Mainor Goldberg
--- NOTE | 2024-09-26 16:41 | Hospitalist Progress Note ---
Date of Service September 26, 2024 Assessment & Plan (1) Ambulatory dysfunction: (2) Stage III pressure ulcer of buttock: (3) Hyperbilirubinemia: (4) Parkinson disease: (5) Dyspnea: (6) Chest pain: Plan 59yo male with advanced Parkinson's disease, HTN, urinary incontinence, and base line ambulatory dysfunction. Presented after a fall at home on day of presentation. #episode of chest pain/dyspnea - -symptoms lasted about 30 minutes -resolved with ativan? -he has adventitious sounds on lung exam today, and cxr with pulmonary edema -acute diastolic CHF?? (echo 01/2024 with preserved EF, grade 1 diastolic dysfunction) -lasix trial 20mg x 1 now -reassess tomorrow -EKG from last pm with considerable artifact but no obvious ST changes -check a troponin with labs in am but suspicion for ACS is low -he is quite sedentary at home - would be more worried about PE - consider CTA chest #Ambulatory dysfunction/Fall/Parkinson's disease -Parkinson's disease diagnosed 2018 - [place] [facility] [facility] [place] Dr Obrien -his note from last visit 08/29/2024 reported worsening ambulatory dysfunction -continue amantadine, carbidopa levodopa (on three different formulations), ropinirole -consider speech eval to ensure no dysphagia -PT/OT -- will need placement for rehab -orthostatics checked today - 20 point drop, but no dizziness #Stage III pressure ulcer of buttocks - -follows with [facility], most recent visit 09/20/2024 -Aquacel Ag, Butt paste, ketoconazole -- continue -Wound care consult appreciated #HTN - -cont Lisinopril -orthostatic BPs negative today #recent leukocytosis - -peaked at 17 and trended down -2nd to stress of the fall? other? VTE Prophylaxis: Lovenox 40mg SQ daily dispo - rehab (pt requested [facility]) Admission and Anticipated Discharge Date Admission Date: September 22, 2024 Subjective patient sitting in chair by the window upon my arrival states he was dyspneic overnight -- lasted about 30 minutes came on suddenly had ?pleuritic chest discomfort with it pain/dyspnea resolved "after I calmed down" he thinks anxiety caused the symptoms he did receive a dose of IV ativan around the time of the event since then no dyspnea no cough he does have mild dyspnea with chest discomfort at times at home but the symptoms are typically brief Review of Systems Review of Systems: GI - no abd pain or N/V pulm - no cough Physical Exam Physical Exam: gen - sitting in chair, NAD, tremors of head/arms/etc - parkinson's features neck - difficult to assess for JVD mouth - MMM heart - RRR, s1 s2, no murmur lungs - b/l rales, worse R base; focal wheezes R base abd - soft NT ND BS+ ext - no edema, pulses 2+ b/l neuro - masked facies, tremors, parkinson's signs/features Results & Data Results & Data Vital Signs (Past 12 Hours) Vital Signs Temp Pulse Pulse Pulse Resp BP BP 09/26/24 14:45 36.5 C 98 H 18 118/78 09/26/24 08:40 88 18 09/26/24 07:42 88 09/26/24 07:22 36.7 C 92 H 20 154/91 H 09/26/24 07:18 Pulse Ox O2 Del Method O2 Flow Rate 09/26/24 14:45 96 Room Air 09/26/24 08:40 95 Room Air 09/26/24 07:42 96 Oxymask 2.5 09/26/24 07:22 97 Nasal Cannula 4 09/26/24 07:18 Nasal Cannula 4 Diagnostic Findings Chest X-Ray 09/26/24 16:40 Technique: A frontal view of the chest was obtained Findings: There is linear atelectasis in the right midlung. The heart size is at the upper limit of normal. No pleural effusion or pneumothorax is seen. There is suspected mild pulmonary edema No fracture is noted. No foreign body is seen Impression: 1. Mild pulmonary edema 2. Linear atelectasis in the right midlung Electronically signed by Avery Samson 09-26-2024 5:14 PM PG Care Time/CCT Total # of Minutes Spent Total Time Spent with Patient: Total time spent is greater than 50% in coordination of care (as documented) at patient's floor/unit and/or counseling patient: Coding Level of Care Code 61132 SUB INP/OBS CARE 2/35MIN Diagnoses Ambulatory dysfunction R26.2 Stage III pressure ulcer of buttock L89.303 Hyperbilirubinemia E80.6 Parkinson disease G20 Dyspnea R06.00 Chest pain R07.9
--- NOTE | 2024-09-26 17:15 | XRay Report ---
Technique: A frontal view of the chest was obtained Findings: There is linear atelectasis in the right midlung. The heart size is at the upper limit of normal. No pleural effusion or pneumothorax is seen. There is suspected mild pulmonary edema No fracture is noted. No foreign body is seen Impression: 1. Mild pulmonary edema 2. Linear atelectasis in the right midlung Electronically signed by Avery Samson 09-26-2024 5:14 PM
[2024-09-26] MEDS: FUROSEMIDE INJ 20 MG/2 ML VIAL IV ONE (18:14)
[2024-09-26] MEDS: POTASSIUM CHLORIDE 10 MEQ TABCR PO STA (18:14)
[2024-09-26] MEDS: LEVODOPA PO SCH (20:42)
[2024-09-26] MEDS: CARBIDOPA PO SCH (20:42)
[2024-09-26] MEDS: MELATONIN 3 MG TAB PO PRN (21:46)
[2024-09-27 07:57] LABS: Hematocrit (blood only) 45.3 % (42.0-52.0); Hemoglobin 15.5 g/dl (14.0-18.0); Mean Corpuscular Hemoglobin 30.2 pg (25.0-34.0); Mean Corpuscular Volume 88.3 fL (80.0-100.0); Platelet Count 253 K/uL (130-400); RDW Standard Deviation 46.3 fL (36.4-46.3); Red Blood Count 5.13 M/uL (4.70-6.10); White Blood Count 9.86 K/ul (4.8-10.8)
[2024-09-27 08:23] LABS: Anion Gap 7.0 (3-11); Blood Urea Nitrogen 23.0 mg/dl (6-23); Calcium 9.3 mg/dl (8.6-10.3); Carbon Dioxide 28.0 mmol/L (21-32); Chloride 100.0 mmol/L (98-107); Creatinine Clr Calc Pharmacy 119.6 ml/min; Glucose 91.0 mg/dl (70-99(Fasting)); Magnesium 2.1 mg/dl (1.7-2.4); Potassium 3.8 mmol/L (3.5-5.1); Sodium 135.0 mmol/L (136-145)
[2024-09-27] MEDS: SENNA 8.6 MG TAB PO SCH (09:20)
[2024-09-27] MEDS: POLYETHYLENE (MIRALAX) 17 GM PACK PO SCH (09:21)
[2024-09-27] MEDS: FUROSEMIDE INJ 20 MG/2 ML VIAL IV ONE (10:30)
[2024-09-27] MEDS: POTASSIUM CHLORIDE 10 MEQ TABCR PO STA (10:30)
--- NOTE | 2024-09-27 20:27 | Hospitalist Progress Note ---
Date of Service September 27, 2024 Assessment & Plan (1) Dyspnea: (2) Chest pain: (3) Parkinson disease: (4) Ambulatory dysfunction: (5) Stage III pressure ulcer of buttock: (6) Hyperbilirubinemia: Plan 59yo male with advanced Parkinson's disease, HTN, urinary incontinence, and base line ambulatory dysfunction. Presented after a fall at home on day of presentation. #episode of chest pain/dyspnea - occurred early AM of 09/26 - -symptoms lasted about 30 minutes -resolved with ativan? -he had adventitious sounds on lung exam yesterday, and cxr with possible pulmonary edema -acute diastolic CHF?? (echo 01/2024 with preserved EF, grade 1 diastolic dys function) -lasix trial 20mg x 1 yesterday with improved lung sounds today -BUN & Cr are stable -will redose lasix 20mg x 1 today and repeat a cxr in am tomorrow -most recent EKG without obvious ST changes -troponin negative -suspicion for ACS very low -if symptoms persist/recur consider aspiration events due to PD vs PE vs other - consider CTA chest #Ambulatory dysfunction/Fall/Parkinson's disease -Parkinson's disease diagnosed 2017 - [place] [facility] [place], Dr Obrien -his note from last visit 08/29/2024 reported worsening ambulatory dysfunction -continue amantadine, carbidopa levodopa (on three different formulations?), ropinirole -consider speech eval to ensure no dysphagia -PT/OT evals -- advising placement for rehab -orthostatics checked - 20 point drop, but no dizziness -will clarify his sinemet / Crexont with his primary neurologist, Dr Obrien #Stage III pressure ulcer of buttocks - -follows with [facility], most recent visit 09/20/2024 -Aquacel Ag, Butt paste, ketoconazole -- continue -Wound care consult appreciated #HTN - -cont Lisinopril -orthostatic BPs negative #recent leukocytosis - -peaked at 17 and trended down; now normal at 9 -2nd to stress of the fall? other? VTE Prophylaxis: Lovenox 40mg SQ daily dispo - rehab (pt and family requested [facility]) family updated at bedside today Admission and Anticipated Discharge Date Admission Date: September 22, 2024 Subjective patient lying in recliner denies any dyspnea today no cough pt's mom & brother were at bedside today when I asked his family if they have ever seen issues with Tim' swallowing they weren't sure staff report some difficulty with taking pills per nursing flowsheets eating well family still want [facility] Review of Systems Review of Systems: cv - no chest pain/discomforts; denies recent edema at home pulm - no dyspnea, no wheezing GI - no n/v Physical Exam Physical Exam: gen - lying in recliner, NAD, tremors of head/arms/etc - parkinson's features unchanged; seems slightly confused today/sleepy? neck - no obvious JVD mouth - MMM heart - RRR, s1 s2, no murmur lungs - no wheezes today, no focal rales today, airation improved, no distress abd - soft NT ND BS+ ext - no edema, pulses 2+ b/l neuro - masked facies, tremors, parkinson's signs/features - more sedated/sleepy today vs confused? Results & Data Results & Data Vital Signs (Past 12 Hours) Vital Signs Temp Pulse Resp BP Pulse Ox O2 Del Method 09/27/24 15:06 36.3 C L 80 16 105/68 95 Room Air Laboratory Results Laboratory Results - last 24 hr 09/27/24 06:51 Sodium 135 L Potassium 3.8 Chloride 100 Carbon Dioxide 28 Anion Gap 7 BUN 23 Creatinine 0.72 Est Cr Clr Drug Dosing 119.6 eGFR 103.94 BUN/Creatinine Ratio 31.9 H Glucose 91 Calcium 9.3 Magnesium 2.1 Troponin I High Sens 4.9 PG Care Time/CCT Total # of Minutes Spent Total Time Spent with Patient: Total time spent is greater than 50% in coordination of care (as documented) at patient's floor/unit and/or counseling patient: Coding Level of Care Code 14277 SUB INP/OBS CARE 2/35MIN Diagnoses Dyspnea R06.00 Chest pain R07.9 Parkinson disease G20 Ambulatory dysfunction R26.2 Stage III pressure ulcer of buttock L89.303 Hyperbilirubinemia E80.6
--- NOTE | 2024-09-28 07:53 | XRay Report ---
EXAM: XR chest 1V portable CLINICAL HISTORY: recent CHF/edema, interval change TECHNIQUE: An X-ray image of the chest is obtained in AP projection. COMPARISON: 09/26/2024 15:52:00 DATA BASE DESIGN ANALYST FINDINGS: Pulmonary Parenchyma: Both lungs shows diffuse increased bronchovascular marking with reticular pattern- could be congestive changes - clinical correlation suggested. Heart and Mediastinum: Heart size and shape are normal. No mediastinal widening or masses. No hilar or mediastinal lymphadenopathy. Bony Thorax: Bony thorax appears intact without fractures or deformities. Soft Tissues: Soft tissues overlying the chest wall are unremarkable. IMPRESSION: Both lungs shows diffuse increased bronchovascular marking with reticular pattern- could be congestive changes - clinical correlation suggested.-stable. Interval unchanged linear band in right middle zone No other abnormality since prior. Electronically signed by Cade Hernandez 09-28-2024 07:50 AM
[2024-09-28] MEDS: OPTIRAY 320 125ml IV ONE (09:10)
[2024-09-28 09:17] LABS: Anion Gap 9.0 (3-11); Blood Urea Nitrogen 19.0 mg/dl (6-23); Calcium 9.4 mg/dl (8.6-10.3); Carbon Dioxide 26.0 mmol/L (21-32); Chloride 100.0 mmol/L (98-107); Creatinine Clr Calc Pharmacy 123.0 ml/min; Glucose 100.0 mg/dl (70-99(Fasting)); Potassium 4.2 mmol/L (3.5-5.1); Sodium 135.0 mmol/L (136-145)
--- NOTE | 2024-09-28 16:10 | CT Scan Report ---
CT angio chest PE protocol CT DOSE: 857.21 mGy.cm HISTORY: dyspnea, chest discomfort; r/o PE, CHF, aspiration. TECHNIQUE: Multiple CTA images of the chest were obtained after the intravenous administration of 120 ml Optiray. Coronal and sagittal MIPS were obtained from the axial data set and were submitted for review. All measurements were obtained according to NASCET criteria. A dose lowering technique was u tilized adhering to the principles of ALARA. COMPARISON STUDY: None FINDINGS: There is mild atelectasis in the lung bases. No pneumonia or pleural effusion. No pneumotho rax. No enlarged adenopathy. No pericardial effusion. Evaluation of the distal small pulmonary arteri es is limited by suboptimal contrast bolus. No pulmonary embolism seen. No thoracic aortic dissection or aneurysm. There are coronary artery calcifications. No acute osseous findings. IMPRESSION: Mildly limited exam with no pulmonary embolism seen. ACT 112: Negative or not required by law. The above report was generated using voice recognition software. It may contain grammatical, syntax o r spelling errors. Electronically signed by: Jude Arce M.D. 09/28/2024 4:09 PM
--- NOTE | 2024-09-28 20:14 | Hospitalist Progress Note ---
Date of Service September 28, 2024 Assessment & Plan (1) Dyspnea: (2) Chest pain: (3) Parkinson disease: (4) Ambulatory dysfunction: (5) Stage III pressure ulcer of buttock: (6) Hyperbilirubinemia: Plan 59yo male with advanced Parkinson's disease, HTN, urinary incontinence, and base line ambulatory dysfunction. Presented after a fall at home on day of presentation. #episode of chest pain/dyspnea - occurred early AM of 09/26 - -has not recurred -symptoms lasted about 30 minutes -resolved with ativan? -he had adventitious sounds on lung exam 09/26, and cxr with possible pulmonary edema -acute diastolic CHF?? (echo 01/2024 with preserved EF, grade 1 diastolic dysfunction) -lasix trial 20mg x 1 09/26 with improved lung sounds -gave 2nd dose of IV lasix on 09/27 -most recent EKG without obvious ST changes -troponin negative -suspicion for ACS very low -repeated a cxr today - this suggested b/l infiltrates -thus, pursued CTA chest to see if ongoing pulm edema vs aspiration vs other was present -CTA neg for PE, edema, effusions, infiltrates today -thus, if he had diastolic CHF it is now resolved #Ambulatory dysfunction/Fall/Parkinson's disease -Parkinson's disease diagnosed 2017 - [place] [facility], Dr Obrien -his note from last visit 08/29/2024 reported worsening ambulatory dysfunction -continue amantadine, carbidopa/levodopa (on three different formulations), ropinirole -confirmed with Dr Obrien he is indeed on all 3 formulations of carbidopa/levodopa -consider speech eval to ensure no dysphagia -PT/OT evals -- advising placement for rehab -orthostatics checked - 20 point drop, but no dizziness #Stage III pressure ulcer of buttocks - -follows with [facility], most recent visit 09/20/2024 -Aquacel Ag, Butt paste, ketoconazole -- continue -Wound care consult appreciated #HTN - -cont Lisinopril -orthostatic BPs negative #recent leukocytosis - resolved - -peaked at 17 and trended down to 9 -2nd to stress of the fall? other? -no signs/symptoms of any infectious process to date VTE Prophylaxis: Lovenox 40mg SQ daily dispo - rehab (pt and family requested [facility]) family updated at bedside yesterday awaiting insurance auth for [facility] if denied I don't feel comfortable sending him home for the reasons listed in this note Admission and Anticipated Discharge Date Admission Date: September 22, 2024 Subjective I confirmed today with Mr Walters's neurologist, Dr Obrien, that indeed he is on all 3 preparations of carbidopa/levodopa patient laying in recliner chair during the visit he offered no complaints he denied any dyspnea or chest pain denied any pain I voiced my concerns about him going home IF insurance denies [facility] he states he has to travel up a flight of steps at home to get from his living space in the basement to the first floor to eat dinner with his mother/brother told him yesterday with PT he was walking <10 feet told him I was concerned he would need back-up plan for rehab if [facility] is denied he did not object, but also did not voice affirmation either for this plan Review of Systems Review of Systems: cv - no cp pulm - no cough or dyspnea Gi - no N/V; had stool earlier today Physical Exam Physical Exam: gen - lying in recliner, NAD, tremors of head/arms/etc; awake/alert neck - no obvious JVD mouth - MMM heart - RRR, s1 s2, no murmur lungs - no wheezes today, no focal rales today, airation improved, no distress; CTA b/l abd - soft NT ND BS+ ext - no edema, pulses 2+ b/l neuro - masked facies, tremors, parkinson's signs/features as previous Results & Data Results & Data Vital Signs (Past 12 Hours) Vital Signs Temp Pulse Resp BP Pulse Ox 09/28/24 15:48 36.3 C L 82 26 H 107/76 09/28/24 15:02 99 Laboratory Results Laboratory Results 09/28/24 08:00 Sodium 135 L Potassium 4.2 Chloride 100 Carbon Dioxide 26 Anion Gap 9 BUN 19 Creatinine 0.70 Est Cr Clr Drug Dosing 123.0 eGFR 104.83 BUN/Creatinine Ratio 27.1 H Glucose 100 H Calcium 9.4 Diagnostic Findings Chest X-Ray 09/28/24 07:00 EXAM: XR chest 1V portable CLINICAL HISTORY: recent CHF/edema, interval change TECHNIQUE: An X-ray image of the chest is obtained in AP projection. COMPARISON: 09/26/2024 15:52:00 [employer] FINDINGS: Pulmonary Parenchyma: Both lungs shows diffuse increased bronchovascular marking with reticular pattern- could be congestive changes - clinical correlation suggested. Heart and Mediastinum: Heart size and shape are normal. No mediastinal widening or masses. No hilar or mediastinal lymphadenopathy. Bony Thorax: Bony thorax appears intact without fractures or deformities. Soft Tissues: Soft tissues overlying the chest wall are unremarkable. IMPRESSION: Both lungs shows diffuse increased bronchovascular marking with reticular pattern- could be congestive changes - clinical correlation suggested.-stable. Interval unchanged linear band in right middle zone No other abnormality since prior. Electronically signed by Cade Hernandez 09-28-2024 07:50 AM Chest CTA 09/28/24 08:03 CT angio chest PE protocol CT DOSE: 857.21 mGy.cm HISTORY: dyspnea, chest discomfort; r/o PE, CHF, aspiration. TECHNIQUE: Multiple CTA images of the chest were obtained after the intravenous administration of 120 ml Optiray. Coronal and sagittal MIPS were obtained from the axial data set and were submitted for review. All measurements were obtained according to NASCET criteria. A dose lowering technique was utilized adhering to the principles of ALARA. COMPARISON STUDY: None FINDINGS: There is mild atelectasis in the lung bases. No pneumonia or pleural effusion. No pneumothorax. No enlarged adenopathy. No pericardial effusion. Evaluation of the distal small pulmonary arteries is limited by suboptimal contrast bolus. No pulmonary embolism seen. No thoracic aortic dissection or aneurysm. There are coronary artery calcifications. No acute osseous findings. IMPRESSION: Mildly limited exam with no pulmonary embolism seen. ACT 112: Negative or not required by law. The above report was generated using voice recognition software. It may contain grammatical, syntax or spelling errors. Electronically signed by: Jude Arce M.D. 09/28/2024 4:09 PM PG Care Time/CCT Total # of Minutes Spent Total Time Spent with Patient: Total time spent is greater than 50% in coordination of care (as documented) at patient's floor/unit and/or counseling patient: Coding Level of Care Code 08575 SUB INP/OBS CARE 2/35MIN Diagnoses Dyspnea R06.00 Chest pain R07.9 Parkinson disease G20 Ambulatory dysfunction R26.2 Stage III pressure ulcer of buttock L89.303 Hyperbilirubinemia E80.6
--- NOTE | 2024-09-29 18:32 | Hospitalist Progress Note ---
Date of Service September 29, 2024 Assessment & Plan (1) Ambulatory dysfunction: (2) Dyspnea: (3) Chest pain: (4) Parkinson disease: (5) Stage III pressure ulcer of buttock: (6) Hyperbilirubinemia: Plan 59yo male with advanced Parkinson's disease, HTN, urinary incontinence, and base line ambulatory dysfunction. Presented after a fall at home on day of presentation. #Ambulatory dysfunction/Fall at home/Parkinson's disease - -Parkinson's disease diagnosed 2018 - sees [facility] [place] [facility], Dr Obrien -his note from last visit 08/29/2024 reported worsening ambulatory dysfunction -continue amantadine, carbidopa/levodopa (on three different formulations), rop inirole -confirmed with Dr Obrien he is indeed on all 3 formulations of carbidopa/levodopa -consider speech eval to ensure no dysphagia but no issues reported by staff with eating/drinking -recent chest CT without signs of chronic aspiration -PT/OT evals -- advised placement for rehab -recent fall - complaining of back pain today in lumbar region - will check lumbar spine CT, r/o compression Fx etc. #episode of chest pain/dyspnea - early AM of 09/26 - -has not recurred -symptoms lasted about 30 minutes & resolved with ativan by report -he had adventitious sounds on lung exam 09/26, and cxr with possible pulmonary edema on that date -acute diastolic CHF?? (echo 01/2024 with preserved EF, grade 1 diastolic dysfunction) -lasix trial 20mg x 1 09/26 with improved lung sounds and improved symptoms -gave 2nd dose of IV lasix on 09/27 -since 09/27 no further pulmonary symptoms -most recent EKG without obvious ST changes -troponin negative -suspicion for ACS very low -CTA chest 09/28 negative for PE, edema, effusions, infiltrates -thus, if he had diastolic CHF earlier this admission, it is now resolved #Stage III pressure ulcer of buttocks - -follows with [facility], most recent visit 09/20/2024 -Aquacel Ag/optifoam -Wound care consult appreciated -aviles in place to avoid soiling of region #HTN - -cont Lisinopril #recent leukocytosis - resolved - -peaked at 17 and trended down to 9 -2nd to stress of the fall? other? -still no signs/symptoms of any infectious process to date #hyperbilirubinemia - -chronic; all t. 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 -no Rx needed -liver u/s in 2020 was wnl VTE Prophylaxis: Lovenox 40mg SQ daily dispo - rehab (pt and family requested [facility]) family updated at bedside 09/27 left message for pt's brother on answering machine 09/29 awaiting insurance auth for [facility] if denied he is willing to explore other options for rehab; he understands his walking is very poor right now and going home would not be prudent Admission and Anticipated Discharge Date Admission Date: September 22, 2024 Subjective no events overnight had 2 stools today no dyspnea he mentions for the first time some back pain in the lumbar region he gets pain from time to time at home, but this time he has had pain lasting longer than usual no pain in his legs eating well he is very open to going to another type of rehab facility if his insurance denies [facility] Review of Systems Review of Systems: CV - no chest pain pulm - no dyspnea at rest or with exertion GI - no N/V/pain or constipation - aviles in place Physical Exam Physical Exam: gen - awake/alert, lying in recliner, NAD, tremors of head/arms/etc at baseline neck - no JVD mouth - MMM heart - RRR, s1 s2, no murmur lungs - CTA b/l abd - soft NT ND BS+ ext - no edema, pulses 2+ b/l neuro - masked facies, tremors, parkinson's signs/features as previous; strength b/l legs 5/5 (hip flexion, ankle dorsiflexion/plantarflexion) Results & Data Results & Data Vital Signs (Past 12 Hours) Vital Signs Temp Pulse Resp BP BP Pulse Ox O2 Del Method 09/29/24 14:39 36.4 C L 97 H 16 122/80 94 Room Air 09/29/24 08:30 Room Air 09/29/24 07:21 36.5 C 84 18 136/89 149/101 H 93 Room Air PG Care Time/CCT Total # of Minutes Spent Total Time Spent with Patient: Total time spent is greater than 50% in coordination of care (as documented) at patient's floor/unit and/or counseling patient: Coding Level of Care Code 74797 SUB INP/OBS CARE 35MIN Diagnoses Ambulatory dysfunction R26.2 Dyspnea R06.00 Chest pain R07.9 Parkinson disease G20 Stage III pressure ulcer of buttock L89.303 Hyperbilirubinemia E80.6
--- NOTE | 2024-09-30 02:06 | CT Scan Report ---
EXAM: CT lumbar spine wo con CLINICAL HISTORY: Recent fall, lower back pain. TECHNIQUE: CT non-contrast scan of lumbar spine done. Axial images obtained with reformatted coronal and sagittal images and submitted for interpretation. One of the following dose reduction techniques were utilized for this exam: Automated exposure control, adjustment of the mA and/or kV according to patient size, use of iterative reconstruction. COMPARISON: None. FINDINGS: Vertebrae: Cortical luceny seen at the tip of the left transverse process of L1 Partial sacralization of L5 with pseudo-articulation of L5 with S1, Castellvi type IIb. Normal alignment of the lumbar vertebrae. No fractures, lytic or sclerotic lesions. Diffuse decrease in bone density. Intervertebral Discs: Diffuse disc bulges at L3?L4 and L4?L5 levels, indenting the ventral aspect of the thecal sac and encroaching upon both neural exit foramina, causing mild spinal canal stenosis. Spinal Canal and Neural Foramina: Spinal canal is of normal caliber with no evidence of bony spinal stenosis. Facet Joints: Degenerative arthrosis noted. Soft Tissues: Normal appearance of the paraspinal soft tissues. No abnormal masses, fluid collections, or signs of inflammation. IMPRESSION: 1. Cortical lucency at the tip of the left transverse process of L1, suspicious for a tiny nondisplaced fracture in the context of recent trauma, recommends clinical correlation with the site of maximum tenderness. 2. Partial sacralization of L5 with pseudo-articulation to S1 (Castellvi type IIb). 3. Diffuse disc bulges at L3?L4 and L4?L5 levels, exerting mild spinal canal stenosis. 4. Degenerative facet joint arthrosis. 5. Diffuse decrease in bone density (suggestive of osteopenia/osteoporosis). Electronically signed by Mikie Best 09-30-2024 02:05 AM
[2024-09-30 09:13] LABS: Anion Gap 7.0 (3-11); Blood Urea Nitrogen 15.0 mg/dl (6-23); Calcium 9.2 mg/dl (8.6-10.3); Carbon Dioxide 25.0 mmol/L (21-32); Chloride 102.0 mmol/L (98-107); Creatinine Clr Calc Pharmacy 130.5 ml/min; Glucose 101.0 mg/dl (70-99(Fasting)); Potassium 4.0 mmol/L (3.5-5.1); Sodium 134.0 mmol/L (136-145)
[2024-09-30 09:27] LABS: Thyroid Stimulating Hormone 5.928 uIu/ml (0.300-4.500)
[2024-09-30] MEDS: CYANOCOBALAMIN (B-12) 500 MCG TABLET PO SCH (10:15)
[2024-09-30] MEDS: HYDROCODONE/ACETAMOPHEN 5/325MG TAB PO PRN (17:10)
--- NOTE | 2024-09-30 18:29 | Hospitalist Progress Note ---
Date of Service September 30, 2024 Assessment & Plan (1) Ambulatory dysfunction: (2) Dyspnea: (3) Chest pain: (4) Parkinson disease: (5) Stage III pressure ulcer of buttock: (6) Hyperbilirubinemia: (7) Fracture of transverse process of lumbar vertebra: Plan 59yo male with advanced Parkinson's disease, HTN, urinary incontinence, and baseline ambulatory dysfunction. Presented after a fall at home on day of presentation. #Ambulatory dysfunction/Fall at home/Parkinson's disease - -Parkinson's disease diagnosed 2018 - sees [facility], Dr Obrien -his note from last visit 08/29/2024 reported worsening ambulatory dysfunction -continue amantadine, carbidopa/levodopa (on three different formulations), ropinirole -confirmed with Dr Obrien he is indeed on all 3 formulations of carbidopa/levodopa -consider speech eval to ensure no dysphagia but no issues reported by staff with eating/drinking -recent chest CT without signs of chronic aspiration -PT/OT evals -- advised placement for rehab; waiting auth for [facility]; patient IS agreeable to SNF as back-up plan #transverse process Fx, L1, on left - -2nd to fall -nonoperative Rx -limit heavy lifting (nothing over 5 #) -limit twisting, etc. -gentle PT -25 OH Vit D level wnl -schedule tylenol 650 TID -norco prn #episode of chest pain/dyspnea - early AM of 09/26 - -has not recurred -symptoms lasted about 30 minutes & resolved with ativan by report -he had adventitious sounds on lung exam 09/26, and cxr with possible pulmonary edema on that date -acute diastolic CHF?? (echo 01/2024 with preserved EF, grade 1 diastolic dysfunction) -lasix trial 20mg x 1 09/26 with improved lung sounds and improved symptoms -gave 2nd dose of IV lasix on 09/27 -since 09/27 no further pulmonary symptoms -most recent EKG without obvious ST changes -troponin negative -suspicion for ACS low -CTA chest 09/28 negative for PE, edema, effusions, infiltrates -thus, if he had diastolic CHF earlier this admission, it is now resolved #Stage III pressure ulcer of buttocks - -follows with [facility], most recent visit 09/20/2024 -Aquacel Ag/optifoam -Wound care consult appreciated -aviles in place to avoid soiling of region #HTN - -cont Lisinopril #recent leukocytosis - resolved - -peaked at 17 and trended down to 9 -2nd to stress of the fall? other? -still no signs/symptoms of any infectious process to date #hyperbilirubinemia - -chronic; all t. 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 -no Rx needed -liver u/s in 2019 was wnl VTE Prophylaxis: Lovenox 40mg SQ daily Low-normal vitamin B12 level - replace; 1000mcg PO daily Minimally elevated TSH with normal FT4 - no Rx, repeat TSH 6 weeks as outpatient dispo - rehab (pt and family requested [facility]) family updated at bedside 09/27 left message for pt's brother on answering machine 09/29 awaiting insurance auth for [facility] if denied he is willing to explore other options for rehab; he understands his walking is very poor right now and going home would not be prudent nor safe Admission and Anticipated Discharge Date Admission Date: September 22, 2024 Subjective no events overnight had large BM yesterday when I entered the room he was standing at his walker with his nurse assisting him he had severe truncal instability and difficulty shuffling back to his chair he denied feeling dizzy or lightheaded eating well still having some back pain we discussed the L1 transverse process fracture and nonoperative Rx for such Review of Systems Review of Systems: CV - no chest pain pulm - no dyspnea Gi - no N/V Physical Exam Physical Exam: gen - awake/alert, NAD, tremors of head/arms/etc at baseline; in recliner chair neck - no JVD mouth - MMM heart - RRR, s1 s2, no murmur lungs - CTA b/l abd - soft NT ND BS+ ext - no edema, pulses 2+ b/l Results & Data Results & Data Vital Signs (Past 12 Hours) Vital Signs Temp Pulse Resp BP Pulse Ox O2 Del Method 09/30/24 17:47 37.0 C 88 20 107/72 97 Room Air 09/30/24 08:30 Room Air 09/30/24 07:01 36.9 C 80 16 123/83 94 Room Air Laboratory Results Laboratory Results 09/30/24 07:51 Sodium 134 L Potassium 4.0 Chloride 102 Carbon Dioxide 25 Anion Gap 7 BUN 15 Creatinine 0.66 Est Cr Clr Drug Dosing 130.5 eGFR 106.71 BUN/Creatinine Ratio 22.7 H Glucose 101 H Calcium 9.2 Vitamin B12 323 25-OH Vitamin D Total 34.2 TSH 5.928 H Free T4 1.03 Diagnostic Findings Lumbar Spine CT 09/29/24 18:32 EXAM: CT lumbar spine wo con CLINICAL HISTORY: Recent fall, lower back pain. TECHNIQUE: CT non-contrast scan of lumbar spine done. Axial images obtained with reformatted coronal and sagittal images and submitted for interpretation. One of the following dose reduction techniques were utilized for this exam: Automated exposure control, adjustment of the mA and/or kV according to patient size, use of iterative reconstruction. COMPARISON: None. FINDINGS: Vertebrae: Cortical luceny seen at the tip of the left transverse process of L1 Partial sacralization of L5 with pseudo-articulation of L5 with S1, Castellvi type IIb. Normal alignment of the lumbar vertebrae. No fractures, lytic or sclerotic lesions. Diffuse decrease in bone density. Intervertebral Discs: Diffuse disc bulges at L3?L4 and L4?L5 levels, indenting the ventral aspect of the thecal sac and encroaching upon both neural exit foramina, causing mild spinal canal stenosis. Spinal Canal and Neural Foramina: Spinal canal is of normal caliber with no evidence of bony spinal stenosis. Facet Joints: Degenerative arthrosis noted. Soft Tissues: Normal appearance of the paraspinal soft tissues. No abnormal masses, fluid collections, or signs of inflammation. IMPRESSION: 1. Cortical lucency at the tip of the left transverse process of L1, suspicious for a tiny nondisplaced fracture in the context of recent trauma, recommends clinical correlation with the site of maximum tenderness. 2. Partial sacralization of L5 with pseudo-articulation to S1 (Castellvi type IIb). 3. Diffuse disc bulges at L3?L4 and L4?L5 levels, exerting mild spinal canal stenosis. 4. Degenerative facet joint arthrosis. 5. Diffuse decrease in bone density (suggestive of osteopenia/osteoporosis). Electronically signed by Mikie Best 09-30-2024 02:05 AM PG Care Time/CCT Total # of Minutes Spent Total Time Spent with Patient: Total time spent is greater than 50% in coordination of care (as documented) at patient's floor/unit and/or counseling patient: Coding Level of Care Code 77285 SUB INP/OBS CARE 35MIN Diagnoses Ambulatory dysfunction R26.2 Dyspnea R06.00 Chest pain R07.9 Parkinson disease G20 Stage III pressure ulcer of buttock L89.303 Hyperbilirubinemia E80.6 Fracture of transverse process of lumbar vertebra S32.009A
[2024-09-30] MEDS: ACETAMINOPHEN 325 MG TAB PO SCH (21:19)
[2024-10-01 07:30] VITALS: RESP 18; TEMP 97.5; O2SAT 96
[2024-10-01 15:04] VITALS: BP 114/76; PULSE 88
--- NOTE | 2024-10-01 15:08 | Discharge Summary ---
Discharge Summary Date of Service October 01, 2024 Principal Dx & Hospital Course #1 = Principal Diagnosis (1) Ambulatory dysfunction: (2) Dyspnea: (3) Chest pain: (4) Parkinson disease: (5) Stage III pressure ulcer of buttock: (6) Hyperbilirubinemia: (7) Fracture of transverse process of lumbar vertebra: Plan 59yo male with advanced Parkinson's disease, HTN, urinary incontinence, and baseline ambulatory dysfunction. Presented after a fall at home on day of presentation. #Ambulatory dysfunction/Fall at home/Parkinson's disease - -Parkinson's disease diagnosed 2018 - [place] [facility], Dr Obrien -his note from last visit 08/29/2024 reported worsening ambulatory dysfunction -continue amantadine, carbidopa/levodopa (on three different formulations), ropinirole -confirmed with Dr Obrien he is indeed on all 3 formulations of carbidopa/levodopa -consider speech eval to ensure no dysphagia but no issues reported by staff with eating/drinking -recent chest CT without signs of chronic aspiration -PT/OT evals -- advised placement for rehab; waiting auth for [facility]; patient IS agreeable to SNF as back-up plan #transverse process Fx, L1, on left - -2nd to fall -nonoperative Rx -limit heavy lifting (nothing over 5 #) -limit twisting, etc. -gentle PT -25 OH Vit D level wnl -schedule tylenol 650 TID -norco prn #episode of chest pain/dyspnea - early AM of 09/26 - -has not recurred -symptoms lasted about 30 minutes & resolved with ativan by report -he had adventitious sounds on lung exam 09/26, and cxr with possible pulmonary edema on that date -acute diastolic CHF?? (echo 01/2024 with preserved EF, grade 1 diastolic dysfunction) -lasix trial 20mg x 1 09/26 with improved lung sounds and improved symptoms -gave 2nd dose of IV lasix on 09/27 -since 09/27 no further pulmonary symptoms -most recent EKG without obvious ST changes -troponin negative -suspicion for ACS low -CTA chest 09/28 negative for PE, edema, effusions, infiltrates -thus, if he had diastolic CHF earlier this admission, it is now resolved #Stage III pressure ulcer of buttocks - -follows with [facility], most recent visit 09/20/2024 -Aquacel Ag/optifoam -Wound care consult appreciated -aviles in place to avoid soiling of region #HTN - -cont Lisinopril #recent leukocytosis - resolved - -peaked at 17 and trended down to 9 -2nd to stress of the fall? other? -still no signs/symptoms of any infectious process to date #hyperbilirubinemia - -chronic; all t. 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 -no Rx needed -liver u/s in 2020 was wnl VTE Prophylaxis: Lovenox 40mg SQ daily Low-normal vitamin B12 level - replace; 1000mcg PO daily Minimally elevated TSH with normal FT4 - no Rx, repeat TSH 6 weeks as outpatient dispo - rehab (pt and family requested [facility]) family updated at bedside 09/27 left message for pt's brother on answering machine 09/29 awaiting insurance auth for [facility] if denied he is willing to explore other options for rehab; he understands his walking is very poor right now and going home would not be prudent nor safe Admission HPI Per Admitting Provider 59-year-old male PMHx advanced Parkinson's disease, HTN, urinary incontinence, and baseline ambulatory dysfunction presenting after reported mechanical fall from home day of arrival. Pt states that he tripped with his walker over a snow shoe that had fallen out of its normal place. He reports that he was "doing too much" and this is why he fell. He was using his walker at the time of the fall. He fell forward, catching himself with his hands and did not land on his face or hit his head. He denies LOC. No blood thinners. He states that he usually has a lift chair that helps him to move around, but ~ 3-4 days ago the remote broke for this and so he has been unable to use it. Due to this, he has been using his legs more often to get around and feels more weak because of this. He denies symptoms before the fall to include chest pain, SOB, dizziness, or presyncope. He is having no pain at present. His brother raises concerns of the patient caring for himself at home given the poor living conditions and worsening of PD. The patient is at his normal baseline in terms of mental status and functioning. He has two healing pressure ulcers on his buttock that he recently completed antibiotics for, his brother stating that these look much better than they had previously. Denies CP, SOB, palpitations, abdominal pain, N/V/D, LUTS, URI symptoms, F/C, numbness/tingling, pain, dizziness, or syncope. Did not take his night time medications, and unclear if he took all of his AM medications as his brother states that he occasionally forgets. Pt is in no pain at this time and resting comfortably. ED evaluation reveals CBC with leukocytosis 17.36, stable H&H; CMP sodium 135, BUN/creatinine ratio 31.9, glucose 117, bilirubin 2.1, ALT 6; COVID-negative; UA pending; no imaging performed, CXR ordered and pending; no EKG performed, ordered and pending. Please see Dr. Yeager's attestation for adjustments/additions to treatment plan. Discharge Exam gen - awake/alert, NAD, tremors of head/arms/etc at baseline; in recliner chair neck - no JVD mouth - MMM heart - RRR, s1 s2, no murmur lungs - CTA b/l abd - soft NT ND BS+ ext - no edema, pulses 2+ b/l Discharge Plan Discharge Items Patient Disposition: Transfer Inpatient Rehab Fac Reason For Visit: ambulatory dysfunction Discharge Diagnosis: 1. Ambulatory dysfunction 2nd to severe Parkinson's disease 2. Parkinson's disease 3. Stage III pressure ulcer of buttock region 4. L1 transverse process nondisplaced fracture - nonoperative management of such 5. HTN 6. Episode of chest tightness/dyspnea - possibly due to acute diastolic CHF - resolved, has not recurred 7. Recent falls at home 2nd to #1 8. Mildly elevated TSH level - repeat level in 6-8 weeks advised as outpatient 9. Chronically elevated total bilirubin level - suspected Gilbert's syndrome Activity: As commented below Activity Comment: no twisting motions due to L1 transverse process fracture Lifting: No more than 5 pounds Non-emergency contact: Primary Care Provider Call non-emergency contact if: you have any medication questions and your pain is not controlled Follow-up/Referrals: Jamie Morfin MD [Primary Care Provider] - (see your family doctor upon discharge from [facility]) Diet: Heart Healthy Addtl Attending Provider Instructions: Mr Walters was hospitalized due to ambulatory dysfunction from his Parkinson's disease with resulting falls at home. Only injury found on imaging was that of a nondisplaced L1 transverse process fracture that does not require operative treatment. He will need to restrict the amount of weight he can lift and avoid twisting motions at the waist. He has a stage 3 pressure ulcer of his buttocks region. He had 1 episode of nocturnal dyspnea and chest tightness. Chest x-rays appeared to show pulmonary edema. He required only 2 days of diuresis. CTA chest did not show pulmonary emboli. Last echo was 01/2024 showing normal EF but grade 1 diastolic dysfunction. Recommendations: 1. PT/OT - eval and Rx. 2. In the next couple of days please remove aviles catheter, if possible. 3. No lifting over 5 pounds. 4. The complex regimen of medications for his Parkinson's disease IS correct and has been verified with his primary neurologist. Family will likely need to bring in brand-name Crexont. 5. Fall precautions. 6. Aspiration precautions. 7. Wound care for decubitus ulcer. It was our pleasure to care for Mr Walters! -Gianfranco Montana, hospital medicine Pending Studies at Discharge: No Stand-Alone Forms: My [facility] Skilled Items Patient informed of condition?: Yes DNR: No Discharge Level of Care: Acute rehab Communicable Disease: No Discharge Prognosis: Stable Lines: None Urinary Catheter: Yes Medications and DC Order Prescriptions: New acetaminophen 325 mg Tablet 650 mg PO TID 10 Days Qty: 60 0RF hydrocodone-acetaminophen 5-325 mg Tablet 1 tab PO Q8H PRN (Reason: pain) Qty: 10 0RF enoxaparin [Lovenox] 40 mg/0.4 mL Syringe 40 mg subcut HS 14 Days Qty: 5.6 0RF polyethylene glycol 3350 [Miralax] 17 gram Powder In Packet 17 g PO DAILY Qty: 30 0RF sennosides [Senna Lax] 8.6 mg Tablet 17.2 mg PO QAM Qty: 30 0RF cyanocobalamin (vitamin B-12) 500 mcg Tablet 1,000 mcg PO QAM Qty: 30 0RF Continued gabapentin 100 mg capsule 100 mg PO TID 30 Days Qty: 90 2RF amantadine HCl 100 mg capsule 100 mg PO BID Qty: 180 1RF multivitamin [Daily Multi-Vitamin] tablet 1 tab PO DAILY ascorbic acid (vitamin C) 1,000 mg tablet 1 gm PO DAILY cholecalciferol (vitamin D3) 1,000 unit capsule 1,000 units PO DAILY Crexont 87.5-350 mg capsule,IR -extend rel,biphase 2 cap PO TID lisinopril 40 mg tablet 40 mg PO DAILY Qty: 30 5RF nystatin [Klayesta] 100,000 unit/gram powder 1 applic TOPICAL TID carbidopa-levodopa 50-200 mg tablet extended release 1 tab PO TID carbidopa-levodopa 25-250 mg tablet 1 tab PO QID ropinirole 2 mg tablet 2 mg PO TID Changed docusate sodium [Colace] 100 mg capsule 100 mg PO BID Qty: 0 0RF Discharge Orders: Discharge Order (Routine); Ordered 10/01/24 Ordered By: Gianfranco Montana Admission Data Admit Date/Time: 09/22/24 20:05 Attending Provider: Gianfranco Montana Admit Provider: Adolfo Yeager Primary Care Provider: Jamie Morfin V. Other Providers: Adolfo Yeager; [facility] Hospital Stay Data Consultations 09/22/24 19:30 ED Decision to Admit Stat Diagnostic Imagining Performed 09/28/24 08:03 CT angio chest PE protocol Routine 09/29/24 18:32 CT lumbar spine wo con Routine Pending Results Patient Have Any Pending Studies at Discharge: No Discharge Instructions Given to Patient (Per Discharging Provider) Mr Walters was hospitalized due to ambulatory dysfunction from his Parkinson's disease with resulting falls at home. Only injury found on imaging was that of a nondisplaced L1 transverse process fracture that does not require operative treatment. He will need to restrict the amount of weight he can lift and avoid twisting motions at the waist. He has a stage 3 pressure ulcer of his buttocks region. He had 1 episode of nocturnal dyspnea and chest tightness. Chest x-rays appeared to show pulmonary edema. He required only 2 days of diuresis. CTA chest did not show pulmonary emboli. Last echo was 01/2024 showing normal EF but grade 1 diastolic dysfunction. Recommendations: 1. PT/OT - eval and Rx. 2. In the next couple of days please remove aviles catheter, if possible. 3. No lifting over 5 pounds. 4. The complex regimen of medications for his Parkinson's disease IS correct and has been verified with his primary neurologist. Family will likely need to bring in brand-name Crexont. 5. Fall precautions. 6. Aspiration precautions. 7. Wound care for decubitus ulcer. It was our pleasure to care for Mr Walters! -Gianfranco Montana, hospital medicine Coding Diagnoses Ambulatory dysfunction R26.2 Dyspnea R06.00 Chest pain R07.9 Parkinson disease G20 Stage III pressure ulcer of buttock L89.303 Hyperbilirubinemia E80.6 Fracture of transverse process of lumbar vertebra S32.009A
== END 2024-10-01 15:37 | DRG 56 ==
LOC: SUATTDRO → ED 16:31 → SUATTDRO 20:05 → 3N 20:05

== ENCOUNTER 2024-10-28 14:03 | Observation (INO) ==
[2024-10-28 14:44] LABS: Hematocrit (blood only) 51.4 % (42.0-52.0); Hemoglobin 17.4 g/dl (14.0-18.0); Immature Granulocytes # (auto) 0.06 K/uL (0.01-0.20); Immature Granulocytes % (auto) 0.6 %; Mean Corpuscular Hemoglobin 29.6 pg (25.0-34.0); Mean Corpuscular Volume 87.4 fL (80.0-100.0); Platelet Count 298 K/uL (130-400); RDW Standard Deviation 44.5 fL (36.4-46.3); Red Blood Count 5.88 M/uL (4.70-6.10); White Blood Count 10.80 K/ul (4.8-10.8)
--- NOTE | 2024-10-28 14:56 | XRay Report ---
Exam: Chest one view portable. Reason for exam: Weakness Previous studies: Portable chest 09/28/2024 FINDINGS: Cardiac size is normal. Previous areas of linear opacity have resolved from the lungs, and at this time no active infiltrate or edema is seen. IMPRESSION: Negative for acute disease at this time. Electronically signed by Jude Merino 10-28-2024 2:55 PM
[2024-10-28 15:01] LABS: Appearance Urine Clear (Clear); Glucose Urine UA Negative (Negative)
[2024-10-28 15:03] LABS: Alanine Aminotransferase 8.0 U/L (7-52); Albumin Globulin Ratio 1.3 (0.9-2); Albumin Level 4.3 gm/dl (3.4-5.0); Alkaline Phosphatase 137.0 U/L (34-104); Anion Gap 6.0 (3-11); Bilirubin,Total 2.0 mg/dl (0.2-1.0); Blood Urea Nitrogen 11.0 mg/dl (6-23); Calcium 9.7 mg/dl (8.6-10.3); Carbon Dioxide 28.0 mmol/L (21-32); Chloride 101.0 mmol/L (98-107); Creatinine Clr Calc Pharmacy 148.4 ml/min; Globulin 3.3 gm/dl (2.5-4.0); Glucose 121.0 mg/dl (70-99(Fasting)); Lipase 20.0 U/L (11-82); Magnesium 2.1 mg/dl (1.7-2.4); Potassium 4.5 mmol/L (3.5-5.1); Sodium 135.0 mmol/L (136-145); Total Protein 7.6 gm/dl (6.0-8.3)
--- NOTE | 2024-10-28 15:10 | Emergency Department Note ---
Impression & Plan Ambulatory dysfunction, Parkinson disease, Weakness ED Provider Note CHIEF COMPLAINT: Weakness, failure to thrive HISTORY OF PRESENTING ILLNESS: Patient is a 59-year-old male presents to the emergency department today for complaints of weakness. On arrival he is covered in urine and feces. Very poor personal hygiene. He has a history of Parkinsons, ambulatory dysfunction, HTN, abnormal liver enzymes, B-12 deficency, abnormal TSH. He states that last night he went to the bathroom and was unable to get back into the bed by himself. Lives with his elderly mother and is taken care of by his brother. His brother was able to assist him back into bed however today he has had increased weakness all day. He has been unable to make it to the bathroom and has been incontinent of urine and stool. Patient denies chest pain, sob, breathing difficulties, abdominal pain, headache, fevers/chills, blood in stool or urine, any recent illness, or any recent travel. Denies any other neurological symptoms. Denies recent falls/trauma. REVIEW OF SYSTEMS: See HPI for pertinent positives and pertinent negatives. ALLERGIES: See below MEDICATIONS: See below PAST MEDICAL HISTORY: See below PHYSICAL EXAM: VITALS: Vitals are noted on the nurse's note and reviewed by myself. GENERAL: Non toxic, in no acute distress, non-diaphoretic. SKIN: Pressure ulcer noted to the right buttocks. Capillary refill <2 sec. EYES: PERRLA. EOMI. Conjunctivae without injection, sclerae without icterus. NOSE: Patent without discharge. MOUTH: Mucous membranes moist. Uvula midline. Airway patent. NECK: Supple without nuchal rigidity. HEART: Regular rate and rhythm without murmurs gallops or rubs. LUNGS: Clear to auscultation bilaterally without wheezes, rales or rhonchi. No retractions or accessory muscle use. ABDOMEN: Positive bowel sounds x 4. Normal tympanic percussion. Soft, nontender to palpation. No masses or hepatosplenomegaly. MUSCULOSKELETAL: With hx of parkinsons, patient has a rigidity appearance. NEURO: Patient was alert and oriented. DIFFERENTIAL DIAGNOSIS: infection, dehydration, UTI, pneumonia, failure to thrive, among others. ED COURSE AND MEDICAL DECISION MAKING: HISTORY FROM INDEPENDENT HISTORIAN: History was provided by the patient. MONITOR: Continuous casino investigator: Order was placed for continuous casino investigator. Patient was placed on the casino investigator and continuous pulse ox. Patient was noted to be in normal sinus rhythm at an initial rate of 88 bpm per my interpretation. EKG: EKG was interpreted by myself as sinus tachycardia with a right bundle branch block and left anterior fascicular block at a rate of 102 bpm. INTERPRETATION OF LABS: I interpreted the labs with full lab results as below in the lab section of this note. Laboratory results pertinent to the emergent complaint are discussed in the MDM section below. The patient was advised to follow up with their PCP and/or specialist(s) for further outpatient monitoring and management of any abnormal results. INTERPRETATION OF IMAGING: Imaging studies were interpreted by myself and read by radiology as per the imaging section of this note. The patient was advised to follow up with their PCP and/or specialist(s) for further outpatient management of any non-emergent abnormal findings. CHRONIC MEDICAL/SOCIAL CONDITIONS AFFECTING CARE: No social concerns were identified as barriers to patients care. EXTERNAL RECORDS REVIEWED: I reviewed the patient's primary care visit from 10/24/2024 related to his advanced Parkinson's disease and the inability to ambulate with discussion of assisted living facilities. ESCALATION OF CARE CONSIDERED: I considered admission on this patient due to the weakness, ambulatory dysfunction, and the need for placement. SUMMARY: I examined the patient for complaints of weakness. A physical exam and history were performed. Nursing notes, EMR, and medication list were personally reviewed. CBC showed no leukocytosis, anemia, thrombocytopenia. Sodium was 135, creatinine 0.58, glucose 121, total bilirubin 2, alkaline phosphatase 137 otherwise normal CMP. TSH 1.676, lipase 20, troponin 5.8. Urinalysis was negative for leukocytes and nitrates. Chest x-ray showed no acute cardiopulmonary findings. I did speak with the patient about the findings and a plan of care and the patient is looking for placement at an assisted care facility due to inability to care for himself and advancing Parkinson's disease. I did speak with Dr. Dong who accepts the patient for admission. Care was transferred at this time. The patient is to have close outpatient follow-up with a recheck of their symptoms. To return to the ER sooner for any significantly changing or worsening symptoms. The patient was educated on the treatment plan and the discharge instructions. The patient was discharged home in stable condition and verbalized understanding of all discharge instructions and treatment plan. DIAGNOSIS: weakness, ambulatory dysfunction, failure to thrive TREATMENT PLAN/DISCHARGE INSTRUCTIONS: Admit to hospitalist services. The chart was completed utilizing [employer] Speech voice recognition software.Grammatical errors, random word insertions, pronoun errors, and incomplete sentences are an occasional consequence of this system due to software limitations, ambient noise, and hardware issues.Any formal questions or concerns about the content, text, or information contained within the body of this dictation should be directly addressed to the physician for clarification. Past Med/Surg History Problem List (Updated 10/28/24 @ 16:59 by LB Sagastume) Weakness (Acute) Vitamin B12 deficiency Abnormal TSH Pressure ulcer of right buttock Ambulatory dysfunction (Acute) Parkinson disease (Acute) Urinary incontinence EKG abnormalities Tachycardia Hypertension Elevated glucose Hyperbilirubinemia PSP (progressive supranuclear palsy) (Acute) Health care maintenance Excessive cerumen in both ear canals Hyperglycemia Medical History Dyspnea on exertion Fracture of transverse process of lumbar vertebra Fall Stage III pressure ulcer of buttock Tremor of right hand Sick Elevated TSH Elevated hemoglobin Shingles Elevated blood pressure reading Surgical History H/O oral surgery Family History Grandfather (Maternal) Myocardial infarction Brother Hypertension Mother Rheumatoid arthritis Denies family history of Colon cancer Ovarian cancer Prostate cancer Diabetes Breast cancer Stroke Social History Smoking Status: Never smoker Tobacco Type: Declines Second Hand Exposure: No; Do You Dip or Chew Tobacco: No; Hx Alcohol Use: No Hx Substance Use: No Preferred Language: Belarusian Communication Ability: Effective Visual Impairment: Limited Hearing Ability: Normal Hosiery Looper Required: No Beliefs That Will Affect Care: None marital status: Single Current Living Situation: Parent current occupational status: retired current occupation: [employer] Feels Safe at Home: Yes Childhood Exposure to Second-Hand Smoke: No Dental Care, Regularly: No Physical Activity Frequency: Does not Exercise Seatbelt Use: always Assistive Devices: Cane and Walker Allergies Allergies Allergy/AdvReac Type Severity Reaction Status Date / Time tetanus toxoid, adsorbed AdvReac Severe Significant Verified 10/28/24 16:11 allergic reaction Home Meds Home Medications Medication Instructions Recorded Confirmed ascorbic acid (vitamin C) 1,000 mg 1 gm PO DAILY 01/08/19 10/28/24 tablet cholecalciferol (vitamin D3) 25 1,000 units PO DAILY 01/08/19 10/28/24 mcg (1,000 unit) capsule multivitamin (Daily Multi-Vitamin 1 tab PO DAILY 01/08/19 10/28/24 tablet) carbidopa 87.5 mg-levodopa ER 350 2 cap PO TID 08/29/24 10/28/24 mg capsule,immed and extend release (Crexont) carbidopa ER 50 mg-levodopa 200 mg 1 tab PO TID 09/22/24 10/28/24 tablet,extended release nystatin 100,000 unit/gram topical 1 applic topical TID PRN Skin 09/22/24 10/28/24 powder (Klayesta) Irritation carbidopa 25 mg-levodopa 250 mg 1 tab PO QID 09/23/24 10/28/24 tablet loratadine 10 mg tablet (Claritin) 10 mg PO DAILY 10/28/24 10/28/24 Previous Rx's Medication Instructions Recorded lisinopril 40 mg tablet 40 mg PO DAILY #30 tabs 06/19/24 amantadine HCl 100 mg capsule 100 mg PO BID #180 caps 08/06/24 cyanocobalamin (vitamin B-12) 500 1,000 mcg (2 x 500 mcg) PO QAM #30 10/01/24 mcg tablet tabs polyethylene glycol 3350 17 gram 17 g PO DAILY #30 ea 10/01/24 oral powder packet (Miralax) gabapentin 100 mg capsule 100 mg PO TID 30 days #90 caps 10/22/24 ropinirole 2 mg tablet 2 mg PO TID 90 days #270 tabs 10/24/24 polyethylene glycol 3350 17 17 g PO DAILY PRN constipation 10/25/24 gram/dose oral powder (Miralax) #476 grams Results & Data (ED) Vital Signs Vital Signs - 24 hr 10/28/24 14:12 10/28/24 14:17 10/28/24 15:04 Temperature 36.5 C Temperature Source Oral Pulse Rate 89 Pulse Rate [Apical] 89 Respiratory Rate 21 18 Respiratory Effort / Characteristics Non-Labored Spontaneous Non-Labored Spontaneous Respiratory Depth Normal Normal Respiratory Pattern Regular Regular Blood Pressure 143/83 H Blood Pressure [Right Arm] 135/99 Blood Pressure Mean 103 Blood Pressure Mean [Right Arm] 111 Pulse Oximetry 95 96 95 Oxygen Delivery Method Room Air Room Air Room Air Sepsis Recent Fever Within 48 Hours No Sepsis New/Unexplained Change in Mental Status No Sepsis Action Taken by Nursing No Action Required 10/28/24 15:31 Temperature Temperature Source Pulse Rate 87 Pulse Rate [Apical] Respiratory Rate Respiratory Effort / Characteristics Respiratory Depth Respiratory Pattern Blood Pressure Blood Pressure [Right Arm] Blood Pressure Mean Blood Pressure Mean [Right Arm] Pulse Oximetry Oxygen Delivery Method Sepsis Recent Fever Within 48 Hours Sepsis New/Unexplained Change in Mental Status Sepsis Action Taken by Nursing Laboratory Data 10/28/24 14:21 10/28/24 14:21 Lab Results 10/28/24 10/28/24 10/28/24 Range/Units 14:21 14: 14:45 WBC 10.80 (4.8-10.8) K/ul RBC 5.88 (4.70-6.10) M/uL Hgb 17.4 (14.0-18.0) g/dl Hct 51.4 (42.0-52.0) % MCV 87.4 (80.0-100.0) fL MCH 29.6 (25.0-34.0) pg MCHC 33.9 (32.0-36.0) g/dL RDW Std Deviation 44.5 (36.4-46.3) fL RDW Coeff of Diana 13.8 (11.5-14.5) % Plt Count 298 (130-400) K/uL MPV 9.1 L (9.4-12.4) fL Immature Gran % (Auto) 0.6 % Neut % (Auto) 83.1 % Lymph % (Auto) 10.6 % Floyd % (Auto) 5.0 % Eos % (Auto) 0.3 % Baso % (Auto) 0.4 % Neut # (Auto) 8.98 H (1.40-6.50) K/uL Lymph # (Auto) 1.15 L (1.20-3.40) K/uL Floyd # (Auto) 0.54 (0.11-0.59) K/uL Eos # (Auto) 0.03 (0.00-0.50) K/uL Baso # (Auto) 0.04 (0.00-0.20) K/uL Immature Gran # (Auto) 0.06 (0.01-0.20) K/uL Sodium 135 L (136-145) mmol/L Potassium 4.5 (3.5-5.1) mmol/L Chloride 101 (98-107) mmol/L Carbon Dioxide 28 (21-32) mmol/L Anion Gap 6 (3-11) BUN 11 (6-23) mg/dl Creatinine 0.58 L (0.6-1.4) mg/dl Est Cr Clr Drug Dosing 148.4 ml/min eGFR 110.96 BUN/Creatinine Ratio 19.0 (10-20) Glucose 121 H (70-99(Fasting)) mg/dl Calcium 9.7 (8.6-10.3) mg/dl Magnesium 2.1 (1.7-2.4) mg/dl Total Bilirubin 2.0 H (0.2-1.0) mg/dl AST 16 (13-39) U/L ALT 8 (7-52) U/L Alkaline Phosphatase 137 H (34-104) U/L Troponin I High Sens 5.8 (0-20) pg/ml Total Protein 7.6 (6.0-8.3) gm/dl Albumin 4.3 (3.4-5.0) gm/dl Globulin 3.3 (2.5-4.0) gm/dl Albumin/Globulin Ratio 1.3 (0.9-2) Lipase 20 (11-82) U/L TSH 1.676 (0.300-4.500) uIu/ml Urine Color Yellow Urine Appearance Clear (Clear) Urine pH 7.5 (4.5-7.5) Ur Specific Gates 1.007 (1.000-1.030) Urine Protein Negative (Negative) Urine Glucose (UA) Negative (Negative) Urine Ketones Negative (Negative) Urine Blood Negative (Negative) Urine Nitrite Negative (Negative) Urine Bilirubin Negative (Negative) Urine Urobilinogen Negative (Negative) Ur Leukocyte Esterase Negative (Negative) Urine Comment Adenovirus (PCR) Not Detected (NotDetected) B. pertussis DNA (PCR) Not Detected (NotDetected) B.parapertussis DNA PCR Not Detected (NotDetected) C. pneumoniae DNA (PCR) Not Detected (NotDetected) Coronavirus OC43 (PCR) Not Detected (NotDetected) Coronavirus HKU1 (PCR) Not Detected (NotDetected) Coronavirus 229E (PCR) Not Detected (NotDetected) SARS-CoV-2 (PCR) Not Detected (NotDetected) Coronavirus NL63 (PCR) Not Detected (NotDetected) Human Metapneumovir PCR Not Detected (NotDetected) Influenza Type A (PCR) Not Detected (NotDetected) Influenza Type B (PCR) Not Detected (NotDetected) M. pneumoniae (PCR) Not Detected (NotDetected) Parainfluenza 1 (PCR) Not Detected (NotDetected) Parainfluenza 2 (PCR) Not Detected (NotDetected) Parainfluenza 3 (PCR) Not Detected (NotDetected) Parainfluenza 4 (PCR) Not Detected (NotDetected) RSV (PCR) Not Detected (NotDetected) Entero/Rhino (PCR) Not Detected (NotDetected) Imaging Data Radiologist's Impression: Chest X-Ray 10/28/24 14:11 Exam: Chest one view portable. Reason for exam: Weakness Previous studies: Portable chest 09/28/2024 FINDINGS: Cardiac size is normal. Previous areas of linear opacity have resolved from the lungs, and at this time no active infiltrate or edema is seen. IMPRESSION: Negative for acute disease at this time. Electronically signed by Jude Merino 10-28-2024 2:55 PM Discharge Plan Visit Data Chief Complaint: Illness Stated Complaint: FAILURE TO THRIVE ED Provider: Noemy Agee ED Midlevel Provider: Rachelle Amin Discharge Problem: Ambulatory dysfunction, Parkinson disease, Weakness Patient Disposition: Admitted As Inpatient Condition: Good Forms Stand Alone Forms: My [facility] [employer] Prescriptions Prescriptions: No Action amantadine HCl 100 mg capsule 100 mg PO BID Qty: 180 1RF gabapentin 100 mg capsule 100 mg PO TID 30 Days Qty: 90 2RF ropinirole 2 mg tablet 2 mg PO TID 90 Days Qty: 270 2RF multivitamin [Daily Multi-Vitamin] tablet 1 tab PO DAILY ascorbic acid (vitamin C) 1,000 mg tablet 1 gm PO DAILY cholecalciferol (vitamin D3) 1,000 unit capsule 1,000 units PO DAILY Crexont 87.5-350 mg capsule,IR -extend rel,biphase 2 cap PO TID Rx Instructions: WILL NEED TO BRING OWN MED IF ADMITTED lisinopril 40 mg tablet 40 mg PO DAILY Qty: 30 5RF polyethylene glycol 3350 [Miralax] 17 gram/dose powder 17 g PO DAILY PRN (Reason: constipation) Qty: 476 1RF nystatin [Klayesta] 100,000 unit/gram powder 1 applic TOPICAL TID PRN (Reason: Skin Irritation) carbidopa-levodopa 50-200 mg tablet extended release 1 tab PO TID carbidopa-levodopa 25-250 mg tablet 1 tab PO QID polyethylene glycol 3350 [Miralax] 17 gram Powder In Packet 17 g PO DAILY Qty: 30 0RF cyanocobalamin (vitamin B-12) 500 mcg Tablet 1,000 mcg PO QAM Qty: 30 0RF loratadine [Claritin] 10 mg Tablet 10 mg PO DAILY Referrals Referrals: Jamie Morfin MD [Primary Care Provider] - Discharge Problem: Parkinson disease Qualifiers: Dyskinesia presence: unspecified whether dyskinesia Fluctuating manifestations: unspecified whether manifestations fluctuate Qualified Code(s): G20.A1 - Parkinson's disease without dyskinesia, without mention of fluctuations
[2024-10-28 15:17] LABS: Thyroid Stimulating Hormone 1.676 uIu/ml (0.300-4.500)
[2024-10-28 15:31] LABS: Chlamydia pneumoniae PCR Not Detected (NotDetected); Coronavirus 229E PCR Not Detected (NotDetected); Coronavirus CoV-2 (COVID19)PCR Not Detected (NotDetected); Coronavirus HKU1 PCR Not Detected (NotDetected); Coronavirus NL63 PCR Not Detected (NotDetected); Coronavirus OC43PCR Not Detected (NotDetected); Human Metapneumovirus PCR Not Detected (NotDetected); Parainfluenza Virus 1 PCR Not Detected (NotDetected); Parainfluenza Virus 2 PCR Not Detected (NotDetected); Parainfluenza Virus 3 PCR Not Detected (NotDetected); Parainfluenza Virus 4 PCR Not Detected (NotDetected); Respiratory Syncytial VirusPCR Not Detected (NotDetected); Rhinovirus/Enterovirus PCR Not Detected (NotDetected)
--- NOTE | 2024-10-28 15:52 | History & Physical Report ---
Date of Service October 28, 2024 Assessment & Plan (1) Ambulatory dysfunction: Plan: 59-year-old male who presents to weak to ambulate to the bathroom and incontinent of stool/urine due to this, has had progressive weakness related to Parkinson's. No acute infectious symptoms. Presents for PT/OT and placement. Weakness, ambulatory dysfunction, history of Parkinson's/PSP Parkinson disease diagnosed 2017. Has had progressive weakness particularly since August of this year. 2 admissions ambulatory dysfunction/falls in the last 6 months with L1 transverse process fracture noted during 09/2024 admit Patient with recent discharge to rehab 01/04/2024 and 10/03/2024 with transition to home. Unfortunately has not been able to complete ADLs consistently at home. Presents to the ER with concerns for ability to care for self safely with available resources, and was recommended for admission. 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 Patient has been interested in arranging 24-hour care versus assisted living but has not been able to arrange this - No evidence of acute infection. Sodium 135. Volume status near euvolemic PT/OT ordered CM consulted Continue ropinirole 2 mg 3 times daily Continue Sinemet 25/Q50 immediate release 4 times daily, Sinemet extended release 50/200 mg 3 times daily, and Crexont 2cap PO TID. patient takes all 3 versions of carbidopalevodopa, verified at bedside with family. He has Crexont with him pharmacy validation. Continue amantadine History of hypertension Continue lisinopril. Normotensive on admission History of elevated total bilirubin, suspect Gilbert's syndrome Total bilirubin stable, no transaminitis. No abnormality noted on previous gallbladder ultrasound Suspect Gilbert's syndrome Sacral Ulcer - Grade II. No overlying infection. +routine wound care DVT prophylaxis: Lovenox Disposition: MSO CODE STATUS: Full code Diet: Regular (2) Parkinson disease: (3) Hyperbilirubinemia: (4) Stage III pressure ulcer of buttock: History of Present Illness Primary Care Provider: Jamie Morfin MD Tim is a 59-year-old male with a past medical history of hypertension, Parkinson's, hyperbilirubinemia, progressive supranuclear palsy, ambulatory dysfunction and presents with acute on chronic weakness. On arrival per ER report poor hygiene, covered in urine and feces, and was too weak to get back into bed alone. On review of ER workup he has no leukocytosis, sodium 135, creatinine 0.58, tota l bili [place] chronically mildly elevated, no transaminitis, troponin is normal, BioFire negative, UA negative, and chest x-ray is negative/clear. Due to concern for ability to care for self and progressive weakness is recommended for inpatient management, PT/OT, and possible placement. Per Pt: Tim is seen with his mother and brother present. He got out of [facility] ~10 days ago. Strength generally poor and very easily fatigued. Last 24 hours too weak to stand. Incontinent due to being unable to ambulate to the toilet. EMS was called. Per [facility] reported he was not safe to remain home. No fevers or chills No dysuria Arms and legs feel much more tired. Feels muscles are tight and tired. No tremors No loss of conciousness. No history of seizures No chest pain. No chest pressure No shortness of breath Eating and drinking OK, but has not eating anything today. Did not take AM pills, was given them at 3pm when found by his brother Per family this seems like a progression of his underlying strength, and he is not really rebounded well even after rehab. Unfortunately his home is not 1 for livable and [place] and can no longer navigate stairs. Even if you are able to do this, he has become so weak that he cannot toilet independently and his care needs beyond what is available in the home from family support. Medical History: Reviewed Medications: Reviewed Surgical History: Reviewed Family history: Reviewed Allergies: Reviewed Social History: No tobacco/etoh use Code Status: Full Code Allergies Allergy/AdvReac Type Severity Reaction Status Date / Time tetanus toxoid, adsorbed AdvReac Severe Significant Verified 10/28/24 16:11 allergic reaction Home Medications Medication Instructions Recorded Confirmed Type ascorbic acid (vitamin C) 1,000 mg 1 gm PO DAILY 01/08/19 10/28/24 History tablet cholecalciferol (vitamin D3) 25 1,000 units PO DAILY 01/08/19 10/28/24 History mcg (1,000 unit) capsule multivitamin (Daily Multi-Vitamin 1 tab PO DAILY 01/08/19 10/28/24 History tablet) lisinopril 40 mg tablet 40 mg PO DAILY #30 tabs 06/19/24 10/28/24 Rx amantadine HCl 100 mg capsule 100 mg PO BID #180 caps 08/06/24 10/28/24 Rx carbidopa 87.5 mg-levodopa ER 350 2 cap PO TID 08/29/24 10/28/24 History mg capsule,immed and extend release (Crexont) carbidopa ER 50 mg-levodopa 200 mg 1 tab PO TID 09/22/24 10/28/24 History tablet,extended release nystatin 100,000 unit/gram topical 1 applic topical TID PRN Skin 09/22/24 10/28/24 History powder (Klayesta) Irritation carbidopa 25 mg-levodopa 250 mg 1 tab PO QID 09/23/24 10/28/24 History tablet cyanocobalamin (vitamin B-12) 500 1,000 mcg (2 x 500 mcg) PO QAM #30 10/01/24 10/28/24 Rx mcg tablet tabs polyethylene glycol 3350 17 gram 17 g PO DAILY #30 ea 10/01/24 10/28/24 Rx oral powder packet (Miralax) gabapentin 100 mg capsule 100 mg PO TID 30 days #90 caps 10/22/24 10/28/24 Rx ropinirole 2 mg tablet 2 mg PO TID 90 days #270 tabs 10/24/24 10/28/24 Rx polyethylene glycol 3350 17 17 g PO DAILY PRN constipation 10/25/24 10/28/24 Rx gram/dose oral powder (Miralax) #476 grams loratadine 10 mg tablet (Claritin) 10 mg PO DAILY 10/28/24 10/28/24 History Past Med/Surg History Problem List (Updated 10/28/24 @ 16:59 by LB Sagastume) Weakness (Acute) Vitamin B12 deficiency Abnormal TSH Pressure ulcer of right buttock Ambulatory dysfunction (Acute) Parkinson disease (Acute) Urinary incontinence EKG abnormalities Tachycardia Hypertension Elevated glucose Hyperbilirubinemia PSP (progressive supranuclear palsy) (Acute) Health care maintenance Excessive cerumen in both ear canals Hyperglycemia Medical History Dyspnea on exertion Fracture of transverse process of lumbar vertebra Fall Stage III pressure ulcer of buttock Tremor of right hand Sick Elevated TSH Elevated hemoglobin Shingles Elevated blood pressure reading Surgical History H/O oral surgery Family History Grandfather (Maternal) Myocardial infarction Brother Hypertension Mother Rheumatoid arthritis Denies family history of Colon cancer Ovarian cancer Prostate cancer Diabetes Breast cancer Stroke Social History Smoking Status: Never smoker Tobacco Type: Declines Second Hand Exposure: No; Do You Dip or Chew Tobacco: No; Hx Alcohol Use: No Hx Substance Use: No Preferred Language: Qatari Communication Ability: Effective Visual Impairment: Limited Hearing Ability: Normal Calliope Player Required: No Beliefs That Will Affect Care: None marital status: Single Current Living Situation: Parent current occupational status: retired current occupation: [employer] Other Information That Helps Us Care for You: No Feels Safe at Home: Yes Safety Concerns: Feels Safe At This Time Childhood Exposure to Second-Hand Smoke: No Dental Care, Regularly: No Physical Activity Frequency: Does not Exercise Seatbelt Use: always Assistive Devices: Cane and Walker Physical Exam Physical Exam: General: A&Ox3. NAD. Cooperative. HEENT: Atraumatic, normocephalic. Vision and hearing grossly intact Pulm: CTAB A&P. -wheezes, -rales, -rhonchi. Symmetrical chest rise. No increased work of breathing. No respiratory distress. Cardiac: RRR, -mrg. Radial pulses intact and symmetrical. Abdominal: Nontender, nondistended, soft. BS present. Skin: Stage II sacral ulcer. Extremities: Fatigues extremely easily. Cardiovascular Rn strength, elbow flexion, shoulder flexion, hip flexion, ankle dorsiflexion/plantarflexion is with active resistance and around 4 -/5 at best, but is not able to give sustained effort. Mild resting tremor and some cogwheeling of the upper extremities on passive range of motion. Results & Data Results & Data Vital Signs (Past 12 Hours) Vital Signs Temp Pulse Pulse Resp BP BP Pulse Ox 10/28/24 15:31 87 10/28/24 15:04 89 18 135/99 95 10/28/24 14:17 36.5 C 89 21 143/83 H 96 09/14/25 14:12 95 O2 Del Method 10/28/24 15:31 10/28/24 15:04 Room Air 10/28/24 14:17 Room Air 10/28/24 14:12 Room Air PG Care Time/CCT Total # of Minutes Spent Total Time Spent with Patient: Total time spent is greater than 50% in coordination of care (as documented) at patient's floor/unit and/or counseling patient: Coding Level of Care Code 65536 INT INP/OBS CARE 3/75MIN Diagnoses Ambulatory dysfunction R26.2 Parkinson disease G20 Hyperbilirubinemia E80.6 Stage III pressure ulcer of buttock L89.303
[2024-10-28] MEDS ORDERED: POLYETHYLENE (MIRALAX) 17 GM PACK PO PRN (16:29)
[2024-10-28] MEDS: CARBIDOPA/LEVODOPA 25-250 1 EA TAB PO SCH (19:55)
[2024-10-28] MEDS: AMANTADINE HCL 100 MG CAPSULE PO SCH (20:15)
[2024-10-28] MEDS: CARBIDOPA PO SCH (20:16)
[2024-10-28] MEDS: LEVODOPA PO SCH (20:16)
[2024-10-28] MEDS: CARBIDOPA/LEVODOPA 50/200MG EXT REL TAB PO SCH (20:16)
[2024-10-28] MEDS: GABAPENTIN 100 MG CAP PO SCH (20:16)
[2024-10-29] MEDS: LORATADINE 10 MG TAB PO SCH (08:06)
[2024-10-29] MEDS: CHOLECALCIFEROL 25 MCG (1000 UNITS) TAB PO SCH (08:06)
[2024-10-29] MEDS: MULTIVITAMIN TAB PO SCH (08:07)
[2024-10-29] MEDS: ASCORBIC ACID 500 MG TAB PO SCH (08:07)
[2024-10-29] MEDS: CYANOCOBALAMIN (B-12) 500 MCG TABLET PO SCH (08:07)
[2024-10-29] MEDS: POLYETHYLENE (MIRALAX) 17 GM PACK PO SCH (08:13)
[2024-10-29 08:37] LABS: Anion Gap 7.0 (3-11); Blood Urea Nitrogen 14.0 mg/dl (6-23); Calcium 9.3 mg/dl (8.6-10.3); Carbon Dioxide 27.0 mmol/L (21-32); Chloride 103.0 mmol/L (98-107); Creatinine Clr Calc Pharmacy 131.2 ml/min; Glucose 100.0 mg/dl (70-99(Fasting)); Potassium 4.2 mmol/L (3.5-5.1); Sodium 137.0 mmol/L (136-145)
--- NOTE | 2024-10-29 11:07 | Hospitalist Progress Note ---
Date of Service October 29, 2024 Assessment & Plan (1) Ambulatory dysfunction: Plan: 59-year-old male who presents to weak to ambulate to the bathroom and incontinent of stool/urine due to this, has had progressive weakness related to Parkinson's. No acute infectious symptoms. Presents for PT/OT and placement. Weakness Ambulatory dysfunction History of Parkinson's/PSP -Labile blood pressure positive orthostatics consistent with possible underlying complicating autonomic instability -Will perform a trial with Carmona Starling to assess for volume responsiveness -If symptoms still present we will consider initiation of midodrine at least during the day, starting dose would be 2.5 mg 3 times daily -Continue current Parkinson's regimen - No evidence of acute infection. Sodium 135. Volume status near euvolemic Continue ropinirole 2 mg 3 times daily Continue Sinemet 25/Q50 immediate release 4 times daily, Sinemet extended release 50/200 mg 3 times daily, and Crexont 2cap PO TID. patient takes all 3 versions of carbidopalevodopa, verified at bedside with family. He has Crexont with him pharmacy validation. Continue amantadine Subacute decline with ADL -Subacute, clinically significant progression, impacting independence and quality of life, rule out autonomic instability below Parkinson disease diagnosed 2017. Has had progressive weakness particularly since August of this year. 2 admissions ambulatory dysfunction/falls in the last 6 months with L1 transverse process fracture noted during 09/2024 admit Patient with recent discharge to rehab 01/04/2024 and 10/03/2024 with transition to home. Unfortunately has not been able to complete ADLs consistently at home. Presents to the ER with concerns for ability to care for self safely with available resources, and was recommended for admission. 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 Patient has been interested in arranging 24-hour care versus assisted living but has not been able to arrange this PT/OT ordered CM consulted Orthostatic hypotension Likely autonomic instability - This would be a new diagnosis, temperatures have been somewhat labile. Symptoms are intermittent and nothing to suggest autonomic instability - Positive orthostatic vital signs on hospital day 2 - Clinically euvolemic - Will have nursing perform a Carmona Starling assessment, volume repletion as needed - Consideration for tapering of the blood pressure medications and/or the addition of midodrine for daytime symptom relief - Followed very closely during PT and OT assessments during initial hospitalization History of hypertension Pending volume assessment as above will hold lisinopril, consider initiation of midodrine - He may be a candidate for permissive hypertension History of elevated total bilirubin, suspect Gilbert's syndrome Total bilirubin stable, no transaminitis. No abnormality noted on previous gallbladder ultrasound Suspect Gilbert's syndrome Sacral Ulcer - Grade II. No overlying infection. +routine wound care, this was noted on his a dmission although bedside assessment per nursing reveals this is resolved DVT prophylaxis: Lovenox Disposition: MSO CODE STATUS: Full code Diet: Regular (2) Parkinson disease: (3) Hyperbilirubinemia: (4) Stage III pressure ulcer of buttock: Admission and Anticipated Discharge Date Admission Date: October 28, 2024 Subjective Doing okay this morning. No new events or concerns per nursing. Has not worked with PT and OT as of yet. Did have a small breakfast. In discussion with the patient this episode of weakness and stiffness happen fairly rapidly and he was up not walk. It was associated with some tingling. He does not recall along the overall episode lasted. He has some very mild stiffness now but has not had recurrence of the tingling. He felt as though he would fall if he had not sat down. Otherwise no problems with eliminations. Reports he did not miss doses of his medications. Otherwise after he was discharged from SNF he has done very well until day of this episode. Review of Systems Review of Systems: Reports mild stiffness in his hands but no other new complaint Physical Exam Constitutional: Alert, oriented, no apparent distress Eyes: Sclera clear and anicteric Respiratory: clear to auscultation Cardiovascular: Regular rate and rhythm no murmurs rubs or gallops Gastrointestinal (Abdomen): Normal bowel sounds Musculoskeletal: No lower extremity edema Skin: No pallor or rash Neurologic: Mild masklike facies, no tremor intact active range of motion in the upper extremities. Babinski negative reflexes 2+ patella Results & Data Results & Data Vital Signs (Past 12 Hours) Vital Signs Temp Pulse Resp BP Pulse Ox O2 Del Method 10/29/24 07:17 36.4 C L 79 16 125/84 95 Room Air 10/28/24 23:47 36.6 C 81 20 98/66 L 95 Room Air Laboratory Results 10/29/24 10/28/24 10/28/24 07:45 14:45 14:25 WBC RBC Hgb Hct MCV MCH MCHC RDW Std Deviation RDW Coeff of Diana Plt Count MPV Immature Gran % (Auto) Neut % (Auto) Lymph % (Auto) [place] % (Auto) Eos % (Auto) Baso % (Auto) Neut # (Auto) Lymph # (Auto) [place] # (Auto) Eos # (Auto) Baso # (Auto) Immature Gran # (Auto) Sodium 137 Potassium 4.2 Chloride 103 Carbon Dioxide 27 Anion Gap 7 BUN 14 Creatinine 0.66 Est Cr Clr Drug Dosing 131.2 eGFR 106.71 BUN/Creatinine Ratio 21.2 H Glucose 100 H Calcium 9.3 Magnesium Total Bilirubin AST ALT Alkaline Phosphatase Troponin I High Sens Total Protein Albumin Globulin Albumin/Globulin Ratio Lipase TSH Urine Color Yellow Urine Appearance Clear Urine pH 7.5 Ur Specific [place] 1.007 Urine Protein Negative Urine Glucose (UA) Negative Urine Ketones Negative Urine Blood Negative Urine Nitrite Negative Urine Bilirubin Negative Urine Urobilinogen Negative Ur Leukocyte Esterase Negative Urine Comment Adenovirus (PCR) Not Detected B. pertussis DNA (PCR) Not Detected B.parapertussis DNA PCR Not Detected C. pneumoniae DNA (PCR) Not Detected Coronavirus OC43 (PCR) Not Detected Coronavirus HKU1 (PCR) Not Detected Coronavirus 229E (PCR) Not Detected SARS-CoV-2 (PCR) Not Detected Coronavirus NL63 (PCR) Not Detected Human Metapneumovir PCR Not Detected Influenza Type A (PCR) Not Detected Influenza Type B (PCR) Not Detected M. pneumoniae (PCR) Not Detected Parainfluenza 1 (PCR) Not Detected Parainfluenza 2 (PCR) Not Detected Parainfluenza 3 (PCR) Not Detected Parainfluenza 4 (PCR) Not Detected RSV (PCR) Not Detected Entero/Rhino (PCR) Not Detected 10/28/24 14:21 WBC 10.80 RBC 5.88 Hgb 17.4 Hct 51.4 MCV 87.4 MCH 29.6 MCHC 33.9 RDW Std Deviation 44.5 RDW Coeff of Diana 13.8 Plt Count 298 MPV 9.1 L Immature Gran % (Auto) 0.6 Neut % (Auto) 83.1 Lymph % (Auto) 10.6 [place] % (Auto) 5.0 Eos % (Auto) 0.3 Baso % (Auto) 0.4 Neut # (Auto) 8.98 H Lymph # (Auto) 1.15 L [place] # (Auto) 0.54 Eos # (Auto) 0.03 Baso # (Auto) 0.04 Immature Gran # (Auto) 0.06 Sodium 135 L Potassium 4.5 Chloride 101 Carbon Dioxide 28 Anion Gap 6 BUN 11 Creatinine 0.58 L Est Cr Clr Drug Dosing 148.4 eGFR 110.96 BUN/Creatinine Ratio 19.0 Glucose 121 H Calcium 9.7 Magnesium 2.1 Total Bilirubin 2.0 H AST 16 ALT 8 Alkaline Phosphatase 137 H Troponin I High Sens 5.8 Total Protein 7.6 Albumin 4.3 Globulin 3.3 Albumin/Globulin Ratio 1.3 Lipase 20 TSH 1.676 Urine Color Urine Appearance Urine pH Ur Specific [place] Urine Protein Urine Glucose (UA) Urine Ketones Urine Blood Urine Nitrite Urine Bilirubin Urine Urobilinogen Ur Leukocyte Esterase Urine Comment Adenovirus (PCR) B. pertussis DNA (PCR) B.parapertussis DNA PCR C. pneumoniae DNA (PCR) Coronavirus OC43 (PCR) Coronavirus HKU1 (PCR) Coronavirus 229E (PCR) SARS-CoV-2 (PCR) Coronavirus NL63 (PCR) Human Metapneumovir PCR Influenza Type A (PCR) Influenza Type B (PCR) M. pneumoniae (PCR) Parainfluenza 1 (PCR) Parainfluenza 2 (PCR) Parainfluenza 3 (PCR) Parainfluenza 4 (PCR) RSV (PCR) Entero/Rhino (PCR) PG Care Time/CCT Total # of Minutes Spent Total Time Spent with Patient: Total time spent is greater than 50% in coordination of care (as documented) at patient's floor/unit and/or counseling patient: Coding Level of Care Code 84548 SUB INP/OBS CARE 2MIN Diagnoses Ambulatory dysfunction R26.2 Parkinson disease G20.A1 Dyskinesia presence: unspecified whether dyskinesia Fluctuating manifestations: unspecified whether manifestations fluctuate Hyperbilirubinemia E80.6 Stage III pressure ulcer of buttock L89.303 (2) Parkinson disease Dyskinesia presence: unspecified whether dyskinesia Fluctuating manifestations: unspecified whether manifestations fluctuate Qualified Code(s): G20.A1 - Parkinson's disease without dyskinesia, without mention of fluctuations
[2024-10-29] MEDS ORDERED: [UNRECOGNIZED DRUG - OTHER] XX ONE (11:28)
--- NOTE | 2024-10-29 16:58 | Neurology Consultation ---
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 While we have him here in the hospital, I would recommend holding the generic Sinemet CR. He may continue with Crexont (branded extended release carbidopa levodopa). He may continue with the generic instant release carbidopa levodopa at the current dosage. I agree with midodrine 2.5 mg 3 times daily as ordered. Monitor for any imp rovement in his orthostatic hypotension. I may also consider reducing his dosage of ropinirole. He may continue with amantadine at the current dosage. If midodrine is not helpful, may consider fludrocortisone or possibly droxidopa. Consultations with PT/OT Please call with any questions. History of Present Illness Reason for Consultation: Parkinson's disease with dysautonomia Requesting Physician: Magalis Attending Physician: Liban Blancas MD History of Present Illness The patient is a 59-year-old male who is known to me, I last saw him in the outpatient clinic August 29, 2024. He has a history of advanced idiopathic Parkinson's disease characterized by rigidity, bradykinesia, gait and postural instability, festinating gait, recurrent forward falls, motor fluctuations, peak dose dyskinesias, restlessness. This condition has been persistent and progressive for many years, he also has some associated ocular motility dysfunction, limited upgaze. His gait dysfunction and postural instability has been a prominent problem for him, even early in the disease course and I have considered the possibility of progressive supranuclear palsy. He does not appear to have significant midbrain atrophy or the so-called "hummingbird sign" on MRI, however. A parkinsonian variant of multiple system atrophy has also been considered previously although he does not have a "crossed bun sign" within the volodymyr on MRI either and he has not developed problems with dysautonomia until recently. He has also been seen by a Parkinson's specialist at [facility], I did rereview the clinic note from June 20, 2024 which corroborates a diagnosis of idiopathic Parkinson's disease beginning with right arm stiffness and tremors. He was given a prescription for Crexont, extended release carbidopa levodopa. At the time of his last assessment with me, I had recommended reducing his dosage of ropinirole to 2 mg 3 times per day. He was to continue with amantadine. [facility] from September 22 through October 01 for ambulatory dysfunction, complicated by fall at home. He presented again to the emergency department yesterday with w eakness, failure to thrive. He reports that he has been having increasing difficulty with standing, walking, having freezing episodes, tendency to fall forwards. He has been incontinent. He has developed orthostatic hypotension as well as identified during this hospitalization, no improvement with IV fluids/volume repletion. I have discussed his case further with the attending hospitalist. A trial of midodrine 2.5 mg 3 times per day has been started. Interestingly, he denies significant dizziness upon standing, but does relay the above history which indicates episodes of weakness, inability to move when upright. I am aware that he is on a relatively large dosage of levodopa, complex regimen which includes instant and 2 different forms of extended release levodopa. He is currently restless and dyskinetic. Allergies Allergy/AdvReac Type Severity Reaction Status Date / Time tetanus toxoid, adsorbed AdvReac Severe Significant Verified 10/28/24 16:11 allergic reaction Home Medications Medication Instructions Recorded Confirmed Type ascorbic acid (vitamin C) 1,000 mg 1 gm PO DAILY 01/08/19 10/28/24 History tablet cholecalciferol (vitamin D3) 25 1,000 units PO DAILY 01/08/19 10/28/24 History mcg (1,000 unit) capsule multivitamin (Daily Multi-Vitamin 1 tab PO DAILY 01/08/19 10/28/24 History tablet) lisinopril 40 mg tablet 40 mg PO DAILY #30 tabs 06/19/24 10/28/24 Rx amantadine HCl 100 mg capsule 100 mg PO BID #180 caps 08/06/24 10/28/24 Rx carbidopa 87.5 mg-levodopa ER 350 2 cap PO TID 08/29/24 10/28/24 History mg capsule,immed and extend release (Crexont) carbidopa ER 50 mg-levodopa 200 mg 1 tab PO TID 09/22/24 10/28/24 History tablet,extended release nystatin 100,000 unit/gram topical 1 applic topical TID PRN Skin 09/22/24 10/28/24 History powder (Klayesta) Irritation carbidopa 25 mg-levodopa 250 mg 1 tab PO QID 09/23/24 10/28/24 History tablet cyanocobalamin (vitamin B-12) 500 1,000 mcg (2 x 500 mcg) PO QAM #30 10/01/24 10/28/24 Rx mcg tablet tabs polyethylene glycol 3350 17 gram 17 g PO DAILY #30 ea 10/01/24 10/28/24 Rx oral powder packet (Miralax) gabapentin 100 mg capsule 100 mg PO TID 30 days #90 caps 10/22/24 10/28/24 Rx ropinirole 2 mg tablet 2 mg PO TID 90 days #270 tabs 10/24/24 10/28/24 Rx polyethylene glycol 3350 17 17 g PO DAILY PRN constipation 10/25/24 10/28/24 Rx gram/dose oral powder (Miralax) #476 grams loratadine 10 mg tablet (Claritin) 10 mg PO DAILY 10/28/24 10/28/24 History Patient History Medical History Dyspnea on exertion Fracture of transverse process of lumbar vertebra Fall Stage III pressure ulcer of buttock Tremor of right hand Sick Elevated TSH Elevated hemoglobin Shingles Elevated blood pressure reading Surgical History H/O oral surgery Family History Grandfather (Maternal) Myocardial infarction Brother Hypertension Mother Rheumatoid arthritis Denies family history of Colon cancer Ovarian cancer Prostate cancer Diabetes Breast cancer Stroke Social History Smoking Status: Never smoker Tobacco Type: Declines Second Hand Exposure: No; Do You Dip or Chew Tobacco: No; Hx Alcohol Use: No Hx Substance Use: No Preferred Language: Urdu Communication Ability: Effective Visual Impairment: Limited Hearing Ability: Normal Secretary Of State Required: No Beliefs That Will Affect Care: None marital status: Single Current Living Situation: Parent current occupational status: retired current occupation: [employer] Other Information That Helps Us Care for You: No Feels Safe at Home: Yes Safety Concerns: Feels Safe At This Time Childhood Exposure to Second-Hand Smoke: No Dental Care, Regularly: No Physical Activity Frequency: Does not Exercise Seatbelt Use: always Assistive Devices: Walker Review of Systems Constitutional: + fatigue and + weakness Eyes: no blind spots and no diplopia Ear, Nose, Mouth, Throat: no hearing loss Respiratory: no dyspnea Cardiovascular: no palpitations Gastrointestinal: + fecal incontinence; no nausea and no v omiting Genitourinary: + urinary incontinence Musculoskeletal: + stiffness; no myalgia Integumentary: no rash Neurologic: as per Subjective / HPI, + gait abnormality, + tremor(s) and + abnormal movements; no memory loss Psychiatric: no depression, no anxiety and no hallucinations Hematologic / Lymphatic: no easy bleeding and no easy bruising Exam (Neuro) Constitutional: well developed; no acute distress Eyes: normal visual aguilar by confrontation and PERRL; + EOM not intact (Limited upgaze, intact downgaze) and no nystagmus Neurologic: Oriented to:: Person, Place and Time Memory: Short Term Intact and Remote Intact Attention: Span Intact and Concentration Intact Speech Fluency: Other (Hypophonia); negative Dysarthria or Dysfluency Speech Aphasia: negative Aphasia Fund of Knowledge: Current Events, Past History and Vocabulary Cranial Nerves: Normal II, III, IV, , V, VII, VIII, IX, X, XI and XII Motor Strength: Normal Lower Extremities and Normal Upper Extremities Rigidity: Rigidity Muscle Bulk/Involuntary Movements: negative Pill Rolling Tremor Sensation: Light Touch Intact, Pain/Temperature Intact and Proprioception Intact Coordination: negative Dysdiadochokinesia, Finger-Nose Abnormal or Heel-Munoz Abnormal Deep Tendon Reflexes: Rt Triceps: 2+, Lt Triceps: 2+, Rt Biceps: 2+, Lt Biceps: 2+, Rt Brachioradialis: 2+, Lt Brachioradialis: 2+, Rt Patellar: 2+, Lt Patellar: 2+, Rt Ankle: 1+ and Lt Ankle: 1+ Special Tests: negative Babinski Present Details: Patient exhibits generalized dyskinesia, restlessness Results & Data Vital Signs (Past 12 Hours) Vital Signs Temp Pulse Resp BP Pulse Ox O2 Del Method 10/29/24 15:21 36.6 C 85 18 104/66 93 Room Air 10/29/24 07:17 36.4 C L 79 16 125/84 95 Room Air Laboratory Results WBC 10.80, hemoglobin 17.4, platelet count 298, sodium 137, potassium 4.2, creatinine 0.66, glucose 100, calcium 9.3, magnesium 2.1, vitamin B12 323, TSH 1.676 Coding Level of Care Code 12451 INT INP/OBS CARE MIN Diagnoses Parkinson disease G20.A1 Dyskinesia presence: unspecified whether dyskinesia Fluctuating manifestations: unspecified whether manifestations fluctuate 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
[2024-10-29] MEDS: MIDODRINE HCL 2.5 MG TAB PO SCH (17:08)
[2024-10-30] MEDS: ACETAMINOPHEN 500 MG TAB PO PRN (09:07)
--- NOTE | 2024-10-30 11:40 | Hospitalist Progress Note ---
Date of Service October 30, 2024 Assessment & Plan (1) Ambulatory dysfunction: Plan: 59-year-old male who presents to weak to ambulate to the bathroom and incontinent of stool/urine due to this, has had progressive weakness related to Parkinson's. No acute infectious symptoms. Presents for PT/OT and placement. Weakness Ambulatory dysfunction History of Parkinson's/PSP -Labile blood pressure positive orthostatics consistent with possible underlying complicating autonomic instability -Will perform a trial with Carmona Starling to assess for volume responsiveness -If symptoms still present we will consider initiation of midodrine at least during the day, starting dose would be 2.5 mg 3 times daily -Continue current Parkinson's regimen - No evidence of acute infection. Sodium 135. Volume status near euvolemic See Neruology consult, tolerating Midodrine well, holding Sinemet CR, trial of midodrine, consider reducing ropinerole depending on clinical response. Subacute decline with ADL -Subacute, clinically significant progression, impacting independence and quality of life, rule out autonomic instability below Parkinson disease diagnosed 2017. Has had progressive weakness particularly since August of this year. 2 admissions ambulatory dysfunction/falls in the last 6 months with L1 transverse process fracture noted during 09/2024 admit Patient with recent discharge to rehab 01/04/2024 and 10/03/2024 with transition to home. Unfortunately has not been able to complete ADLs consistently at home. Presents to the ER with concerns for ability to care for self safely with available resources, and was recommended for admission. [employer]ST[employer]IGZ[employer] patient has been too weak to ambulate to the bathroom, has been incontinent of urine and stool due to this. Patient has been interested in arranging 24-hour care versus assisted living but has not been able to arrange this PT/OT ordered, see job [place] consulted Orthostatic hypotension Likely autonomic instability - This would be a new diagnosis, temperatures have been somewhat labile. Symptoms are intermittent and nothing to suggest autonomic instability - Positive orthostatic vital signs on hospital day 2 - Clinically euvolemic -Starling asseeement negateive, toelrating midorine well so far, repeat OVS after lunch time dose of midodrine History of hypertension Pending volume assessment as above will hold lisinopril, consider initiation of midodrine - He may be a candidate for permissive hypertension History of elevated total bilirubin, suspect Gilbert's syndrome Total bilirubin stable, no transaminitis. No abnormality noted on previous gallbladder ultrasound Suspect Gilbert's syndrome Sacral Ulcer - Grade II. No overlying infection. +routine wound care, this was noted on his admission although bedside assessment per nursing reveals this is resolved DVT prophylaxis: Lovenox Disposition: MSO CODE STATUS: Full code Diet: Regular (2) Parkinson disease: (3) Hyperbilirubinemia: (4) Stage III pressure ulcer of buttock: Admission and Anticipated Discharge Date Admission Date: October 28, 2024 Subjective Doing okay this morning. No new events or concerns per nursing. Has not worked with PT and OT as of yet. Did have a small breakfast. In discussion with the patient this episode of weakness and stiffness happen fairly rapidly and he was up not walk. It was associated with some tingling. He does not recall along the overall episode lasted. He has some very mild stiffness now but has not had recurrence of the tingling. He felt as though he would fall if he had not sat down. Otherwise no problems with eliminations. Reports he did not miss doses of his medications. Otherwise after he was discharged from SNF he has done very well until day of this episode. Physical Exam Constitutional: Alert, oriented, no apparent distress Eyes: Sclera clear and anicteric Respiratory: clear to auscultation Cardiovascular: Regular rate and rhythm no murmurs rubs or gallops Gastrointestinal (Abdomen): Normal bowel sounds Musculoskeletal: No lower extremity edema Skin: No pallor or rash Neurologic: Mild masklike facies, no tremor intact active range of motion in the upper extremities. movement controlled but slowed this AM Results & Data Results & Data Vital Signs (Past 12 Hours) Vital Signs Temp Pulse Resp BP Pulse Ox O2 Del Method 10/30/24 07:26 36.7 C 76 18 128/89 95 Room Air PG Care Time/CCT Total # of Minutes Spent Total Time Spent with Patient: Total time spent is greater than 50% in coordination of care (as documented) at patient's floor/unit and/or counseling patient: Coding Level of Care Code 52568 SUB INP/OBS CARE 2/35MIN Diagnoses Ambulatory dysfunction R26.2 Parkinson disease G20.A1 Dyskinesia presence: unspecified whether dyskinesia Fluctuating manifestations: unspecified whether manifestations fluctuate Hyperbilirubinemia E80.6 Stage III pressure ulcer of buttock L89.303 (2) Parkinson disease Dyskinesia presence: unspecified whether dyskinesia Fluctuating manifestations: unspecified whether manifestations fluctuate Qualified Code(s): G20.A1 - Parkinson's disease without dyskinesia, without mention of fluctuations
[2024-10-31 07:41] LABS: Hematocrit (blood only) 52.1 % (42.0-52.0); Hemoglobin 17.2 g/dl (14.0-18.0); Immature Granulocytes # (auto) 0.13 K/uL (0.01-0.20); Immature Granulocytes % (auto) 1.4 %; Mean Corpuscular Hemoglobin 28.5 pg (25.0-34.0); Mean Corpuscular Volume 86.3 fL (80.0-100.0); Platelet Count 279 K/uL (130-400); RDW Standard Deviation 43.9 fL (36.4-46.3); Red Blood Count 6.04 M/uL (4.70-6.10); White Blood Count 9.49 K/ul (4.8-10.8)
[2024-10-31 08:02] LABS: Anion Gap 8.0 (3-11); Blood Urea Nitrogen 17.0 mg/dl (6-23); Calcium 9.5 mg/dl (8.6-10.3); Carbon Dioxide 25.0 mmol/L (21-32); Chloride 101.0 mmol/L (98-107); Creatinine Clr Calc Pharmacy 139.6 ml/min; Glucose 102.0 mg/dl (70-99(Fasting)); Potassium 4.2 mmol/L (3.5-5.1); Sodium 134.0 mmol/L (136-145)
--- NOTE | 2024-10-31 10:30 | Hospitalist Progress Note ---
Date of Service October 31, 2024 Assessment & Plan (1) Ambulatory dysfunction: Plan: 59-year-old male who presents to weak to ambulate to the bathroom and incontinent of stool/urine due to this, has had progressive weakness related to Parkinson's. No acute infectious symptoms. Presents for PT/OT and placement. Weakness Ambulatory dysfunction History of Parkinson's/PSP -Labile blood pressure positive orthostatics consistent with possible underlying complicating autonomic instability -Will perform a trial with Carmona Starling to assess for volume responsiveness -If symptoms still present we will consider initiation of midodrine at least during the day, starting dose would be 2.5 mg 3 times daily -Continue current Parkinson's regimen - No evidence of acute infection. Sodium 135. Volume status near euvolemic See Neurology consult, tolerating Midodrine well, holding Sinemet CR, trial of midodrine, consider reducing ropinerole depending on clinical response. - Continue midodrine, hold if systolic greater than 170, diastolic greater than 100, check orthostatic vital signs she has a morning and afternoon and preferably with therapy. Subacute decline with ADL -Subacute, clinically significant progression, impacting independence and quality of life, rule out autonomic instability below Parkinson disease diagnosed 2017. Has had progressive weakness particularly since August of this year. 2 admissions ambulatory dysfunction/falls in the last 6 months with L1 transverse process fracture noted during 09/2024 admit Patient with recent discharge to rehab 01/04/2024 and 10/03/2024 with trans ition to home. Unfortunately has not been able to complete ADLs consistently at home. Presents to the ER with concerns for ability to care for self safely with available resources, and was recommended for admission. [employer] patient has been too weak to ambulate to the bathroom, has been incontinent of urine and stool due to this. Patient has been interested in arranging 24-hour care versus assisted living but has not been able to arrange this PT/OT ordered, see job EASLEY consulted Orthostatic hypotension Likely autonomic instability - This would be a new diagnosis, temperatures have been somewhat labile. Symptoms are intermittent and nothing to suggest autonomic instability - Positive orthostatic vital signs on hospital day 2 - Clinically euvolemic -Starling asseeement negateive, toelrating midorine well so far, repeat OVS after lunch time dose of midodrine History of hypertension Pending volume assessment as above will hold lisinopril, consider initiation of midodrine - Permissive hypertension, but he will need to be 401 50 systolic minutes autonomic instability. Will determine based on midodrine dosing evaluation as above History of elevated total bilirubin, suspect Gilbert's syndrome Total bilirubin stable, no transaminitis. No abnormality noted on previous gallbladder ultrasound Suspect Gilbert's syndrome Sacral Ulcer - Grade II. No overlying infection. +routine wound care, this was noted on his admission although bedside assessment per nursing reveals this is resolved DVT prophylaxis: Lovenox Disposition: MSO CODE STATUS: Full code Diet: Regular (2) Parkinson disease: (3) Hyperbilirubinemia: (4) Stage III pressure ulcer of buttock: Admission and Anticipated Discharge Date Admission Date: October 28, 2024 Subjective Doing okay this morning. No new events or concerns per nursing. Working with PT and OT. Notices no significant decline in his movement or functional status with the changes in Parkinson's medications. Not reporting any dizziness or unsteadiness. Midodrine was held yesterday secondary to an increase in his blood pressures. Reviewed with nursing parameters, continue midodrine unless he gets greater than 170 systolic. Will recheck orthostatic vital signs later today. Otherwise no new concerns per patient Physical Exam Constitutional: Awake, alert, eating breakfast Respiratory: Clear to auscultation bilaterally Cardiovascular: Regular rate and rhythm no murmurs rubs or gallops Gastrointestinal (Abdomen): Normal bowel sounds, nondistended Neurologic: Slow but accurate movements, no tremor, no rigidity Results & Data Results & Data Vital Signs (Past 12 Hours) Vital Signs Temp Pulse Resp BP Pulse Ox O2 Del Method 10/31/24 07:06 36.6 C 71 18 139/96 96 Room Air 10/30/24 23:33 36.7 C 80 18 115/76 95 Room Air Laboratory Results 10/31/24 07:21 WBC 9.49 RBC 6.04 Hgb 17.2 Hct 52.1 H MCV 86.3 MCH 28.5 MCHC 33.0 RDW Std Deviation 43.9 RDW Coeff of Diana 14.2 Plt Count 279 MPV 8.7 L Immature Gran % (Auto) 1.4 Neut % (Auto) 64.9 Lymph % (Auto) 23.5 Labette % (Auto) 7.5 Eos % (Auto) 2.0 Baso % (Auto) 0.7 Neut # (Auto) 6.16 Lymph # (Auto) 2.23 Labette # (Auto) 0.71 H Eos # (Auto) 0.19 Baso # (Auto) 0.07 Immature Gran # (Auto) 0.13 Sodium 134 L Potassium 4.2 Chloride 101 Carbon Dioxide 25 Anion Gap 8 BUN 17 Creatinine 0.62 Est Cr Clr Drug Dosing 139.6 eGFR 108.74 BUN/Creatinine Ratio 27.4 H Glucose 102 H Calcium 9.5 PG Care Time/CCT Total # of Minutes Spent Total Time Spent with Patient: Total time spent is greater than 50% in coordination of care (as documented) at patient's floor/unit and/or counseling patient: Coding Level of Care Code 69792 SUB INP/OBS CARE MIN Diagnoses Ambulatory dysfunction R26.2 Parkinson disease G20.A1 Dyskinesia presence: unspecified whether dyskinesia Fluctuating manifestations: unspecified whether manifestations fluctuate Hyperbilirubinemia E80.6 Stage III pressure ulcer of buttock L89.303 (2) Parkinson disease Dyskinesia presence: unspecified whether dyskinesia Fluctuating manifestations: unspecified whether manifestations fluctuate Qualified Code(s): G20.A1 - Parkinson's disease without dyskinesia, without mention of fluctuations
[2024-11-01 07:58] LABS: Anion Gap 7.0 (3-11); Blood Urea Nitrogen 17.0 mg/dl (6-23); Calcium 9.4 mg/dl (8.6-10.3); Carbon Dioxide 30.0 mmol/L (21-32); Chloride 99.0 mmol/L (98-107); Creatinine Clr Calc Pharmacy 129.2 ml/min; Glucose 105.0 mg/dl (70-99(Fasting)); Potassium 4.1 mmol/L (3.5-5.1); Sodium 136.0 mmol/L (136-145)
--- NOTE | 2024-11-01 17:00 | Hospitalist Progress Note ---
Date of Service November 01, 2024 Assessment & Plan (1) Ambulatory dysfunction: Plan: 59-year-old male who presents to weak to ambulate to the bathroom and incontinent of stool/urine due to this, has had progressive weakness related to Parkinson's. No acute infectious symptoms. Presents for PT/OT and placement. Weakness Ambulatory dysfunction History of Parkinson's/PSP -Labile blood pressure positive orthostatics consistent with possible underlying complicating autonomic instability -Will perform a trial with Carmona Starling to assess for volume responsiveness -If symptoms still present we will consider initiation of midodrine at least during the day, starting dose would be 2.5 mg 3 times daily -Continue current Parkinson's regimen - No evidence of acute infection. Sodium 135. Volume status near euvolemic See Neurology consult, tolerating Midodrine well, holding Sinemet CR, trial of midodrine, consider reducing ropinerole depending on clinical response. - Continue midodrine, hold if systolic greater than 170, diastolic greater than 100, check orthostatic vital signs she has a morning and afternoon and preferably with therapy. - Doing well, monitor movement/stiffness, subjectively increased stiffness in the legs today, will monitor Subacute decline with ADL -Subacute, clinically significant progression, impacting independence and quality of life, rule out autonomic instability below Parkinson disease diagnosed 2018. Has had progressive weakness particularly since August of this year. 2 admissions ambulatory dysfunction/falls in the last 6 months with L1 transverse process fracture noted during 09/2024 admit Patient with recent discharge to rehab 01/04/2024 and 10/03/2024 with transition to home. Unfortunately has not been able to complete ADLs consistently at home. Presents to the ER with concerns for ability to care for self safely with available resources, and was recommended for admission. [employer] patient has been too weak to ambulate to the bathroom, has been inco ntinent of urine and stool due to this. Patient has been interested in arranging 24-hour care versus assisted living but has not been able to arrange this PT/OT ordered, see job EASLEY consulted Orthostatic hypotension Likely autonomic instability - This would be a new diagnosis, temperatures have been somewhat labile. Symptoms are intermittent and nothing to suggest autonomic instability - Positive orthostatic vital signs on hospital day 2 - Clinically euvolemic - Tolerating midodrine well, orthostatic vitals stable and negative today. CM working to get auth/bed History of hypertension Pending volume assessment as above will hold lisinopril, consider initiation of midodrine - Permissive hypertension, but he will need to be 140 150 systolic to compensate for autonomic instability. Currently within goal range. History of elevated total bilirubin, suspect Gilbert's syndrome Total bilirubin stable, no transaminitis. No abnormality noted on previous gallbladder ultrasound Suspect Gilbert's syndrome Sacral Ulcer - Grade II. bedside assessment per nursing reveals this was resolved at the time of admission. DVT prophylaxis: Lovenox Disposition: MSO CODE STATUS: Full code Diet: Regular (2) Parkinson disease: (3) Hyperbilirubinemia: (4) Stage III pressure ulcer of buttock: Admission and Anticipated Discharge Date Admission Date: October 28, 2024 Subjective Doing okay this morning. He thinks his legs are little stiff this morning compared to previous day but no other new concerns with coordination or movement. Has been working with PT and OT. Feels as though it is pretty close to his baseline. Discussed rechecking orthostatic vital signs today. If those remain stable on his current dose would be ready to discharge later today or assuming this bed and authorization return. No events or concerns per nursing. No new complaints per patient Results & Data Results & Data Vital Signs (Past 12 Hours) Vital Signs Temp Pulse Resp BP Pulse Ox O2 Del Method 11/01/24 15:38 36.4 C L 74 18 109/74 94 Room Air 11/01/24 07:08 36.4 C L 80 18 142/102 H 97 Room Air Laboratory Results 11/01/24 07:20 Sodium 136 Potassium 4.1 Chloride 99 Carbon Dioxide 30 Anion Gap 7 BUN 17 Creatinine 0.67 Est Cr Clr Drug Dosing 129.2 eGFR 106.23 BUN/Creatinine Ratio 25.4 H Glucose 105 H Calcium 9.4 PG Care Time/CCT Total # of Minutes Spent Total Time Spent with Patient: Total time spent is greater than 50% in coordination of care (as documented) at patient's floor/unit and/or counseling patient: Coding Level of Care Code 80820 SUB INP/OBS CARE 2/35MIN Diagnoses Ambulatory dysfunction R26.2 Parkinson disease G20.A1 Dyskinesia presence: unspecified whether dyskinesia Fluctuating manifestations: unspecified whether manifestations fluctuate Hyperbilirubinemia E80.6 Stage III pressure ulcer of buttock L89.303 (2) Parkinson disease Dyskinesia presence: unspecified whether dyskinesia Fluctuating manifestations: unspecified whether manifestations fluctuate Qualified Code(s): G20.A1 - Parkinson's disease without dyskinesia, without mention of fluctuations
--- NOTE | 2024-11-02 14:29 | Hospitalist Progress Note ---
Date of Service November 02, 2024 Assessment & Plan (1) Ambulatory dysfunction: Plan: 59-year-old male who presents to weak to ambulate to the bathroom and incontinent of stool/urine due to this, has had progressive weakness related to Parkinson's. No acute infectious symptoms. Presents for PT/OT and placement. Weakness Ambulatory dysfunction History of Parkinson's/PSP -Labile blood pressure positive orthostatics consistent with possible underlying complicating autonomic instability -Will perform a trial with Carmona Starling to assess for volume responsiveness -If symptoms still present we will consider initiation of midodrine at least during the day, starting dose would be 2.5 mg 3 times daily -Continue current Parkinson's regimen - No evidence of acute infection. Sodium 135. Volume status near euvolemic See Neurology consult, tolerating Midodrine well, holding Sinemet CR, trial of midodrine, consider reducing ropinerole depending on clinical response. - Continue midodrine, hold if systolic greater than 170, diastolic greater than 100, check orthostatic vital signs she has a morning and afternoon and preferably with therapy. - Doing well, monitor movement/stiffness, subjectively increased stiffness in the legs today, will monitor - Stable, slight increase in interval weakness and stiffness however this can well be deconditioning secondary to his recurrent hospitalizations - Tolerating the midodrine well. No orthostasis. Will plan for discharge with current regimen - Case management working to find appropriate placement, possibly later today. He would be medically cleared for transfer at any time Subacute decline with ADL -Subacute, clinically significant progression, impacting independence and quality of life, rule out autonomic instability below Parkinson disease diagnosed 2018. Has had progressive weakness particularly since August of this year. 2 admissions ambulatory dysfunction/falls in the last 6 months with L1 transverse process fracture noted during 09/2024 admit Patient with recent discharge to rehab 01/04/2024 and 10/03/2024 with transition to home. Unfortunately has not been able to complete ADLs consistently at home. Presents to the ER with concerns for ability to care for self safely with available resources, and was recommended for admission. 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 Patient has been interested in arranging 24-hour care versus assisted living but has not been able to arrange this PT/OT ordered, see job EASLEY consulted - See above. Orthostatic hypotension Likely autonomic instability - This would be a new diagnosis, temperatures have been somewhat labile. Symptoms are intermittent and nothing to suggest autonomic instability - Positive orthostatic vital signs on hospital day 2 - Clinically euvolemic - Tolerating midodrine well, orthostatic vitals stable and negative today. CM working to get auth/bed - Adequately managed with midodrine. Discussed the side effect of midodrine could be contributing to his fatigue and stiffness. Will continue to Constipation - Will add half dose Metamucil and titrate upward as outpatient History of hypertension Pending volume assessment as above will hold lisinopril, consider initiation of midodrine - Permissive hypertension, but he will need to be 140 150 systolic to compensate for autonomic instability. Currently within goal range. History of elevated total bilirubin, suspect Gilbert's syndrome Total bilirubin stable, no transaminitis. No abnormality noted on previous gallbladder ultrasound Suspect Gilbert's syndrome Sacral Ulcer - Grade II. bedside assessment per nursing reveals this was resolved at the time of admission. DVT prophylaxis: Lovenox Disposition: MSO CODE STATUS: Full code Diet: Regular (2) Parkinson disease: (3) Hyperbilirubinemia: (4) Stage III pressure ulcer of buttock: Admission and Anticipated Discharge Date Admission Date: October 28, 2024 Subjective Doing okay this morning. Legs are about the same as yesterday, feels movement more stiff but no significant limitations. He reports stools are quite firm and difficult to pass. He does have a bowel regimen that he takes. He has never been on Metamucil or other bulk softeners. No new complaints per patient. Physical Exam Constitutional: Awake, alert, eating breakfast Respiratory: Clear to auscultation bilaterally Cardiovascular: Regular rate and rhythm no murmurs rubs or gallops Gastrointestinal (Abdomen): Normal bowel sounds, nondistended Neurologic: Slow but accurate movements, no tremor, no rigidity Results & Data Results & Data Vital Signs (Past 12 Hours) Vital Signs Temp Pulse Resp BP Pulse Ox O2 Del Method 11/02/24 07:26 36.4 C L 83 19 135/91 97 Room Air PG Care Time/CCT Total # of Minutes Spent Total Time Spent with Patient: Total time spent is greater than 50% in coordination of care (as documented) at patient's floor/unit and/or counseling patient: Coding Level of Care Code 84596 SUB INP/OBS CARE 03/10MIN Diagnoses Ambulatory dysfunction R26.2 Parkinson disease G20.A1 Dyskinesia presence: unspecified whether dyskinesia Fluctuating manifestations: unspecified whether manifestations fluctuate Hyperbilirubinemia E80.6 Stage III pressure ulcer of buttock L89.303 (2) Parkinson disease Dyskinesia presence: unspecified whether dyskinesia Fluctuating manifestations: unspecified whether manifestations fluctuate Qualified Code(s): G20.A1 - Parkinson's disease without dyskinesia, without mention of fluctuations
[2024-11-02] MEDS: PSYLLIUM HUSK 4GM PACKET PO SCH (15:37)
[2024-11-02] MEDS: NYSTATIN POWDER 15GM BTL EXT SCH (20:36)
--- NOTE | 2024-11-03 11:34 | Hospitalist Progress Note ---
Date of Service November 03, 2024 Assessment & Plan (1) Ambulatory dysfunction: Plan: 59-year-old male who presents to weak to ambulate to the bathroom and incontinent of stool/urine due to this, has had progressive weakness related to Parkinson's. No acute infectious symptoms. Presents for PT/OT and placement. Weakness Ambulatory dysfunction History of Parkinson's/PSP -Labile blood pressure positive orthostatics consistent with possible underlying complicating autonomic instability -Will perform a trial with Carmona Starling to assess for volume responsiveness -If symptoms still present we will consider initiation of midodrine at least during the day, starting dose would be 2.5 mg 3 times daily -Continue current Parkinson's regimen - No evidence of acute infection. Sodium 135. Volume status near euvolemic See Neurology consult, tolerating Midodrine well, holding Sinemet CR, trial of midodrine, consider reducing ropinerole depending on clinical response. - Continue midodrine, hold if systolic greater than 170, diastolic greater than 100, check orthostatic vital signs she has a morning and afternoon and preferably with therapy. - Doing well, monitor movement/stiffness, subjectively increased stiffness in the legs today, will monitor - Stable, slight increase in interval weakness and stiffness however this can well be deconditioning secondary to his recurrent hospitalizations - Tolerating the midodrine well. No orthostasis. Will plan for discharge with current regimen - Case management working to find appropriate placement, possibly later today. He would be medically cleared for transfer at any time - 11/03: No change, tolerating new medication regimen well awaiting placement Subacute decline with ADL -Subacute, clinically significant progression, impacting independence and quality of life, rule out autonomic instability below Parkinson disease diagnosed 2017. Has had progressive weakness particularly since August of this year. 2 admissions ambulatory dysfunction/falls in the last 6 months with L1 transverse process fracture noted during 09/2024 admit Patient with recent discharge to rehab 01/04/2024 and 10/03/2024 with transition to home. Unfortunately has not been able to complete ADLs consistently at home. Presents to the ER with concerns for ability to care for self safely with available resources, and was recommended for admission. 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 Patient has been interested in arranging 24-hour care versus assisted living but has not been able to arrange this PT/OT ordered, see job EASLEY consulted - See above. 11/03: Participating with PT and OT, some stiffness early on but generally at recent baseline. Orthostatic hypotension Likely autonomic instability - This would be a new diagnosis, temperatures have been somewhat labile. Symptoms are intermittent and nothing to suggest autonomic instability - Positive orthostatic vital signs on hospital day 2 - Clinically euvolemic - Tolerating midodrine well, orthostatic vitals stable and negative today. CM working to get auth/bed - Adequately managed with midodrine. Discussed the side effect of midodrine could be contributing to his fatigue and stiffness. Will continue to 11/03: Controlled with current regiman Constipation - Will add half dose Metamucil and titrate upward as outpatient - Tolerating well, continue lower dose History of hypertension Pending volume assessment as above will hold lisinopril, consider initiation of midodrine - Permissive hypertension, but he will need to be 140 150 systolic to compensate for autonomic instability. Currently within goal range. History of elevated total bilirubin, suspect Gilbert's syndrome Total bilirubin stable, no transaminitis. No abnormality noted on previous gallbladder ultrasound Suspect Gilbert's syndrome Sacral Ulcer - Grade II. bedside assessment per nursing reveals this was resolved at the time of admission. DVT prophylaxis: Lovenox Disposition: MSO CODE STATUS: Full code Diet: Regular (2) Parkinson disease: (3) Hyperbilirubinemia: (4) Stage III pressure ulcer of buttock: Admission and Anticipated Discharge Date Admission Date: October 28, 2024 Subjective Doing okay this morning. Legs are about the same as yesterday, states his movements are Andreas get more stiff but once he gets going this seems to be okay. No significant part of his baseline. He denies any residual orthostasis or weakness. Bowel movements x 2 yesterday. No bloating or dyspepsia after starting Metamucil. No new complaints per patient. Physical Exam Constitutional: Awake, alert, eating breakfast Respiratory: Clear to auscultation bilaterally Cardiovascular: Regular rate and rhythm no murmurs rubs or gallops Gastrointestinal (Abdomen): Normal bowel sounds, nondistended Neurologic: Slow but accurate movements, no tremor, no rigidity Results & Data Results & Data Vital Signs (Past 12 Hours) Vital Signs Temp Pulse Resp BP Pulse Ox O2 Del Method 11/03/24 09:29 36.2 C L 84 17 116/77 95 Room Air 11/03/24 07:53 36.3 C L 82 18 142/98 H 93 Room Air PG Care Time/CCT Total # of Minutes Spent Total Time Spent with Patient: Total time spent is greater than 50% in coordination of care (as documented) at patient's floor/unit and/or counseling patient: Coding Level of Care Code 22516 SUB INP/OBS CARE 03/10MIN Diagnoses Ambulatory dysfunction R26.2 Parkinson disease G20.A1 Dyskinesia presence: unspecified whether dyskinesia Fluctuating manifestations: unspecified whether manifestations fluctuate Hyperbilirubinemia E80.6 Stage III pressure ulcer of buttock L89.303 (2) Parkinson disease Dyskinesia presence: unspecified whether dyskinesia Fluctuating manifestations: unspecified whether manifestations fluctuate Qualified Code(s): G20.A1 - Parkinson's disease without dyskinesia, without mention of fluctuations
[2024-11-04 07:10] LABS: Anion Gap 7.0 (3-11); Blood Urea Nitrogen 14.0 mg/dl (6-23); Calcium 9.4 mg/dl (8.6-10.3); Carbon Dioxide 28.0 mmol/L (21-32); Chloride 102.0 mmol/L (98-107); Creatinine Clr Calc Pharmacy 125.5 ml/min; Glucose 98.0 mg/dl (70-99(Fasting)); Potassium 3.7 mmol/L (3.5-5.1); Sodium 137.0 mmol/L (136-145)
--- NOTE | 2024-11-04 13:20 | Hospitalist Progress Note ---
Date of Service November 04, 2024 Assessment & Plan (1) Ambulatory dysfunction: Plan: 59-year-old male who presents to weak to ambulate to the bathroom and incontinent of stool/urine due to this, has had progressive weakness related to Parkinson's. No acute infectious symptoms. Presents for PT/OT and placement. Weakness Ambulatory dysfunction History of Parkinson's/PSP -Labile blood pressure positive orthostatics consistent with possible underlying complicating autonomic instability See Neurology consult, tolerating Midodrine well, holding Sinemet CR, trial of midodrine, consider reducing ropinerole depending on clinical response. - Continue midodrine, hold if systolic greater than 170, diastolic greater than 100, check orthostatic vital signs she has a morning and afternoon and preferably with therapy. - Tolerating the midodrine well. No orthostasis. Will plan for discharge with current regimen - Case management working to find appropriate placement, possibly later today. He would be medically cleared for transfer at any time - 11/03: No change, tolerating new medication regimen well awaiting placement - 11/04: stable, no change, awaiting auth/placement. Med changes, DC'd Sinemet CR, started midodine 2.5mg TID Subacute decline with ADL -Subacute, clinically significant progression, impacting independence and quality of life, rule out autonomic instability below Parkinson disease diagnosed 2017. Has had progressive weakness particularly since August of this year. 2 admissions ambulatory dysfunction/falls in the last 6 months with L1 transverse process fracture noted during 09/2024 admit Patient with recent discharge to rehab 01/04/2024 and 10/03/2024 with transition to home. Unfortunately has not been able to complete ADLs consistently at home. Presents to the ER with concerns for ability to care for self safely with available resources, and was recommended for admission. [employer] patient has been too weak to ambulate to the bathroom, has been incontinent of urine and stool due to this. Patient has been interested in arranging 24-hour care versus assisted living but has not been able to arrange this PT/OT ordered, see job [facility] consulted - See above. 11/03: Participating with PT and OT, some stiffness early on but generally at recent baseline. Orthostatic hypotension Likely autonomic instability - This would be a new diagnosis, temperatures have been somewhat labile. Symptoms are intermittent and nothing to suggest autonomic instability - Positive orthostatic vital signs on hospital day 2 - Clinically euvolemic - Tolerating midodrine well, orthostatic vitals stable and negative today. CM working to get auth/bed - Adequately managed with midodrine. Discussed the side effect of midodrine could be contributing to his fatigue and stiffness. Will continue to 11/03: Controlled with current regimen 11/03: No change Constipation - Will add half dose Metamucil and titrate upward as outpatient - Very loose stools with even small metamucil dose, DCd, resume PRN repeat episodes. History of hypertension Pending volume assessment as above will hold lisinopril, consider initiation of midodrine - Permissive hypertension, but he will need to be 140 150 systolic to compensate for autonomic instability. Currently within goal range. History of elevated total bilirubin, suspect Gilbert's syndrome Total bilirubin stable, no transaminitis. No abnormality noted on previous gallbladder ultrasound Suspect Gilbert's syndrome Sacral Ulcer - Grade II. bedside assessment per nursing reveals this was resolved at the time of admission. DVT prophylaxis: Lovenox Disposition: [facility] CODE STATUS: Full code Diet: Regular (2) Parkinson disease: (3) Hyperbilirubinemia: (4) Stage III pressure ulcer of buttock: Admission and Anticipated Discharge Date Admission Date: October 28, 2024 Subjective Doing pretty well this morning. Reports the Metamucil is working very well. Very loose stools. He asked that we discontinue. No other new events or complaints. Has not been up with therapy but has been able to do exercises within the room and is very satisfied with his movement. No recurrent dizziness or orthostasis. Energy level is good. No problems with intake or eliminations otherwise Physical Exam Constitutional: Awake, alert, eating breakfast Respiratory: Clear to auscultation bilaterally Cardiovascular: Regular rate and rhythm no murmurs rubs or gallops Gastrointestinal (Abdomen): Normal bowel sounds, nondistended Neurologic: Slow but accurate movements, no tremor, no rigidity Results & Data Results & Data Vital Signs (Past 12 Hours) Vital Signs Temp Pulse Resp BP Pulse Ox O2 Del Method 11/04/24 12:02 36.3 C L 91 H 17 143/92 H 95 Room Air 11/04/24 07:36 36.7 C 80 18 146/96 H 95 Room Air Laboratory Results 11/04/24 06:05 Sodium 137 Potassium 3.7 Chloride 102 Carbon Dioxide 28 Anion Gap 7 BUN 14 Creatinine 0.69 Est Cr Clr Drug Dosing 125.5 eGFR 105.29 BUN/Creatinine Ratio 20.3 H Glucose 98 Calcium 9.4 PG Care Time/CCT Total # of Minutes Spent Total Time Spent with Patient: Total time spent is greater than 50% in coordination of care (as documented) at patient's floor/unit and/or counseling patient: Coding Level of Care Code 05056 SUB INP/OBS CARE 03/10MIN Diagnoses Ambulatory dysfunction R26.2 Parkinson disease G20.A1 Dyskinesia presence: unspecified whether dyskinesia Fluctuating manifestations: unspecified whether manifestations fluctuate Hyperbilirubinemia E80.6 Stage III pressure ulcer of buttock L89.303 (2) Parkinson disease Dyskinesia presence: unspecified whether dyskinesia Fluctuating manifestations: unspecified whether manifestations fluctuate Qualified Code(s): G20.A1 - Parkinson's disease without dyskinesia, without mention of fluctuations
--- NOTE | 2024-11-05 09:06 | Neurology Progress Note ---
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 He presented to the emergency room May 28 with weakness, lightheadedness with standing, and inability to ambulate. He was noted to be quite dyskinetic. His dyskinesia has improved off of carbidopa/levodopa 27180 ER (essentially resolved today) and he does not have lightheadedness with standing on midodrine. He is strong currently but extremely bradykinetic. He does not have more than mild cogwheel rigidity today. I spoke with a Dr. Obrien today, via telephone, regarding this patient and his medications. Recommendations: 1. Continue midodrine 2.5 mg 3 times a day for now. 2. Continue branded extended release carbidopa/levodopa (Crexont) 2 tablets 3 times a day 3. Continue carbidopa/levodopa IR 25-251 tablet 4 times a day 4. Continue amantadine 100 mg twice a day for now. I am not certain what this medication is doing to help him, unless it is helping to control dyskinesias. 5. Could consider increasing ropinirole, however, according to Dr. Obrien he is very "brittle" and gets dyskinesias easily. Otherwise, remain on ropinirole 2 mg 3 times a day 6. Continue physical and Occupational Therapy 7. Apparently he is waiting for placement 8. Please contact me if he is worse otherwise he will follow-up with Dr. Obrien (or neurology PA) 2 to 3 weeks after discharge Overall, I spent a total of 55 minutes with this case including review of records, direct evaluation of the patient, report generation and discussion of the case with the patient, RN at bedside, and Drs. Solano and Camille, including diagnosis and treatment presents. Admission and Anticipated Discharge Date Admission Date: October 28, 2024 Subjective This patient has advanced Parkinson's disease followed closely by Dr. Obrien. When he was admitted October 28, he was very dyskinetic and lightheaded with standing. Midodrine has helped his lightheadedness as well as lowering his Parkinson meds (the carbidopa/levodopa, 07037 ER 1 tablet 3 times a day was discontinued). He still remains on a special long-acting carbidopa/levodopa 87.53 50 ER 2 caps 3 times a day (Crexont), carbidopa/levodopa 252 50 IR 1 tablet 4 times a day, ropinirole 2 mg 3 times a day, and amantadine 100 mg a day. Currently he has no pain and no lightheadedness with standing. He transfers from bed to chair and chair to commode with assistance of 1 (doing reasonably well himself). He is very slow. He says he has tremor but it it is not quite as bad as on admission. He is uncertain what the gabapentin 100 mg 3 times a day is being used for Blood pressure is 146/106 and he is afebrile. Results & Data Vital Signs (Past 12 Hours) Vital Signs Temp Pulse Resp BP BP Pulse Ox O2 Del Method 11/05/24 07:48 36.3 C L 83 16 146/106 H 146/102 H 96 Room Air 11/04/24 23:17 36.3 C L 76 18 119/73 94 Room Air Exam (Neuro) Physical Exam: He is awake and alert. Speech is without aphasia or dysarthria. Mood is reasonable and affect is appropriate. Thought processes are somewhat reasonable for conversation although he does tend to be forgetful. Extraocular eye muscles are intact with reasonable up-and-down gaze bilaterally. He has no nystagmus. There is no facial droop and tongue is midline. The patient has a significant masklike face with decreased blink rate. He has severe bradykinesia in general. Despite the severe bradykinesia, he has mild cogwheel rigidity only. I saw no resting tremor today. He did have very mild action tremor right greater than left hand only. Motor strength is 5/5 diffusely in all major muscle groups in the arms and leg both proximally and distally. Stance sitting in chair is normal. He is slow but capable of transferring from commode to chair. 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
--- NOTE | 2024-11-05 14:46 | Hospitalist Progress Note ---
"Date of Service November 05, 2024 Assessment & Plan (1) Ambulatory dysfunction: Plan: 59-year-old male who presents to [facility] to ambulate to the bathroom and incontinent of stool/urine due to this, has had progressive weakness related to Parkinson's. No acute infectious symptoms. Presents for PT/OT and placement. Weakness | Ambulatory dysfunction | History of Parkinson's/PSP - Labile blood pressure positive orthostatics consistent with possible underlying complicating autonomic instability Neurology consulted - continue midodrine 2.5mg TID, continue Crexonit 2 tabs TID, continue carbidopa/levodopa IR QID, continue amantadine, continue ropinirole 2mg TID There was consideration to increasing the ropinirole but concerns for dyskinesias PT/OT rec rehab, CM following Subacute decline with ADL - Subacute, clinically significant progression, impacting independence and quality of life. Parkinson disease diagnosed 2017. Has had progressive weakness particularly since August of this year. 2 admissions ambulatory dysfunction/falls in the last 6 months with L1 transverse process fracture noted during 09/2024 admit Will need rehab placement Orthostatic hypotension - Likely autonomic instability - This would be a new diagnosis, temperatures have been somewhat labile. - Positive orthostatic vital signs on hospital day 2 - - Tolerating midodrine well, orthostatic vitals stable and negative today. CM working to get auth/bed Constipation- this has resolved and now with loose stools, miralax changed to PRN History of hypertension Pending volume assessment as above will hold lisinopril - Permissive hypertension, but he will need to be 140 150 systolic to compensate for autonomic instability. Currently within goal range. History of elevated total bilirubin, suspect Gilbert's syndrome Total bilirubin stable, no transaminitis. No abnormality noted on previous gallbladder ultrasound Suspect Gilbert's syndrome Sacral Ulcer - Grade II. bedside assessment per nursing reveals this was resolved at the time of admission. DVT prophylaxis: Lovenox Disposition: awaiting insurance auth (2) Parkinson disease: (3) Hyperbilirubinemia: (4) Stage III pressure ulcer of buttock: Admission and Anticipated Discharge Date Admission Date: October 28, 2024 Subjective pateint seen sittin up in the chair, reports feeling alittle stiff but overall okay denies lightheadedness or dizziness today good appetite Review of Systems Review of Systems: All systems reviewed & are unremarkable except as noted in Subjective Physical Exam Constitutional: Awake, alert, sitting up in the chair Respiratory: Clear to auscultation bilaterally Cardiovascular: Regular rate and rhythm no murmurs rubs or gallops Gastrointestinal (Abdomen): Normal bowel sounds, nondistended Neurologic: Slow but accurate movements, no tremor, no rigidity Results & Data Results & Data Vital Signs (Past 12 Hours) Vital Signs Temp Pulse Resp BP BP Pulse Ox O2 Del Method 11/05/24 13:38 139/95 11/05/24 10:51 Room Air 11/05/24 07:48 97.3 F L 83 16 146/106 H 146/102 H 96 Room Air PG Care Time/CCT Total # of Minutes Spent Total Time Spent with Patient: Total time spent is greater than 50% in coordination of care (as documented) at patient's floor/unit and/or counseling patient: Coding Level of Care Code 63713 SUB INP/OBS CARE 03/10MIN Diagnoses Ambulatory dysfunction R26.2 Parkinson disease G20.A1 Dyskinesia presence: unspecified whether dyskinesia Fluctuating manifestations: unspecified whether manifestations fluctuate Hyperbilirubinemia E80.6 Stage III pressure ulcer of buttock L89.303 (2) Parkinson disease Dyskinesia presence: unspecified whether dyskinesia Fluctuating manifestations: unspecified whether manifestations fluctuate Qualified Code(s): G20.A1 - Parkinson's disease without dyskinesia, without mention of fluctuations"
--- NOTE | 2024-11-05 15:11 | Discharge Summary ---
Discharge Summary Date of Service November 05, 2024 Principal Dx & Hospital Course #1 = Principal Diagnosis (1) Ambulatory dysfunction: Weakness | Ambulatory dysfunction | History of Parkinson's/PSP 59-year-old male who presents to [facility] to ambulate to the bathroom and incontinent of stool/urine due to this, has had progressive weakness related to Parkinson's. No acute infectious symptoms. Presents for PT/OT and placement. Labile blood pressure positive orthostatics consistent with possible underlying complicating autonomic instability. Neurology consulted - continue midodrine 2.5mg TID, continue Crexonit 2 tabs TID, continue carbidopa/levodopa IR QID, continue amantadine, continue ropinirole 2mg TID. There was consideration to increasing the ropinirole but concerns for dyskinesias. Follow up with neurology in 2-3 weeks PT/OT rec rehab, CM following - accepted at [facility] Subacute decline with ADL - Subacute, clinically significant progression, impacting independence and quality of life. Parkinson disease diagnosed 2018. Has had progressive weakness particularly since August of this year. 2 admissions ambulatory dysfunction/falls in the last 6 months with L1 transverse process fracture noted during 09/2024 admit. Discharge to rehab Orthostatic hypotension - Likely autonomic instability - This would be a new diagnosis, temperatures have been somewhat labile. - Positive orthostatic vital signs on hospital day 2 - - Tolerating midodrine well, orthostatic vitals stable Constipation- this has resolved and now with loose stools, miralax changed to PRN History of hypertension - lisinopril discontinued, allowing for some hypertension with orthostatic hypotension History of elevated total bilirubin, suspect Gilbert's syndrome Total bilirubin stable, no transaminitis. No abnormality noted on previous gallbladder ultrasound Suspect Gilbert's syndrome Sacral Ulcer - Grade II. bedside assessment per nursing reveals this was resolved at the time of admission. dispo: discharge to rehab today (2) Parkinson disease: (3) Hyperbilirubinemia: (4) Stage III pressure ulcer of buttock: Admission HPI Per Admitting Provider Tim is a 59-year-old male with a past medical history of hypertension, Parkinson's, hyperbilirubinemia, progressive supranuclear palsy, ambulatory dysfunction and presents with acute on chronic weakness. On arrival per ER r eport poor hygiene, covered in urine and feces, and was too weak to get back into bed alone. On review of ER workup he has no leukocytosis, sodium 135, creatinine 0.58, total bili [place] chronically mildly elevated, no transaminitis, troponin is normal, BioFire negative, UA negative, and chest x-ray is negative/clear. Due to concern for ability to care for self and progressive weakness is recommen ded for inpatient management, PT/OT, and possible placement. Per Pt: Tim is seen with his mother and brother present. He got out of [facility] ~10 days ago. Strength generally poor and very easily fatigued. Last 24 hours too weak to stand. Incontinent due to being unable to ambulate to the toilet. EMS was called. Per [facility] reported he was not safe to remain home. No fevers or chills No dysuria Arms and legs feel much more tired. Feels muscles are tight and tired. No tremors No loss of conciousness. No history of seizures No chest pain. No chest pressure No shortness of breath Eating and drinking OK, but has not eating anything today. Did not take AM pills, was given them at 3pm when found by his brother Per family this seems like a progression of his underlying strength, and he is not really rebounded well even after rehab. Unfortunately his home is not 1 for livable and [place] and can no longer navigate stairs. Even if you are able to do this, he has become so weak that he cannot toilet independently and his care needs beyond what is available in the home from family support. Medical History: Reviewed Medications: Reviewed Surgical History: Reviewed Family history: Reviewed Allergies: Reviewed Social History: No tobacco/etoh use Code Status: Full Code Discharge Exam General: NAD, VS as above, sitting up to the chair Resp: normal respiratory effort, lungs clear to auscultation CV: RRR, no murmur, Abd: normal bowel sounds, non tender, no hepatosplenomegaly Extremities: Moves all extremities, no edema Neuro: A&O x3, Discharge Plan Discharge Items Patient Disposition: Transfer [facility] Reason For Visit: AMBULATORY DYSFUNCTION Discharge Diagnosis: parkinson's disease Condition on Discharge: Good Activity: As commented below Activity Comment: work with therapy to get stronger Weightbearing: Full weightbearing Non-emergency contact: Primary Care Provider Call non-emergency contact if: you have any medication questions, your symptoms worsen, your pain is worsening and your temperature is above 101 Follow-up/Referrals: Ti Obrien MD [Physician] - (follow up 2-3 weeks ) Jamie Morfin MD [Primary Care Provider] - (follow up 1 week after discharge from rehab) Diet: Regular Diet Texture: Dental soft (bite-sized) Addtl Attending Provider Instructions: Mr. Walters, You were hospitalized after having progressive weakness at home - likely a consequence of your parkinson's disease. Your blood pressure was also dropping when you changed positions, called orthostatic hypotension and you were started on midodrine. Recommendations for neurology: 1. Continue midodrine 2.5 mg 3 times a day for now. 2. Continue branded extended release carbidopa/levodopa (Crexont) 2 tablets 3 times a day 3. Continue carbidopa/levodopa IR 25-251 tablet 4 times a day 4. Continue amantadine 100 mg twice a day for now. I am not certain what this medication is doing to help him, unless it is helping to control dyskinesias. 5. Could consider increasing ropinirole, however, according to Dr. Obrien he is very "brittle" and gets dyskinesias easily. Otherwise, remain on ropinirole 2 mg 3 times a day You should follow up with Dr. Obrien in 2-3 weeks. Please follow up with your PCP after discharge from rehab. Thank you for allowing us to participate in your care! Pending Studies at Discharge: No Stand-Alone Forms: My [facility] Skilled Items Patient informed of condition?: Yes DNR: No Discharge Level of Care: Skilled Communicable Disease: No Discharge Prognosis: Stable Lines: None Urinary Catheter: No Medications and DC Order Prescriptions: New midodrine 2.5 mg Tablet 2.5 mg PO TID@0800,1200,1700 Qty: 90 0RF Continued amantadine HCl 100 mg capsule 100 mg PO BID Qty: 180 1RF gabapentin 100 mg capsule 100 mg PO TID 30 Days Qty: 90 2RF ropinirole 2 mg tablet 2 mg PO TID 90 Days Qty: 270 2RF multivitamin [Daily Multi-Vitamin] tablet 1 tab PO DAILY ascorbic acid (vitamin C) 1,000 mg tablet 1 gm PO DAILY cholecalciferol (vitamin D3) 1,000 unit capsule 1,000 units PO DAILY Crexont 87.5-350 mg capsule,IR -extend rel,biphase 2 cap PO TID Rx Instructions: WILL NEED TO BRING OWN MED IF ADMITTED polyethylene glycol 3350 [Miralax] 17 gram/dose powder 17 g PO DAILY PRN (Reason: constipation) Qty: 476 1RF nystatin [Klayesta] 100,000 unit/gram powder 1 applic TOPICAL TID PRN (Reason: Skin Irritation) carbidopa-levodopa 25-250 mg tablet 1 tab PO QID cyanocobalamin (vitamin B-12) 500 mcg Tablet 1,000 mcg PO QAM Qty: 30 0RF loratadine [Claritin] 10 mg Tablet 10 mg PO DAILY Held polyethylene glycol 3350 [Miralax] 17 gram Powder In Packet 17 g PO DAILY Qty: 30 0RF Hold Instructions: Provider's Order - while having diarrhea Discontinued lisinopril 40 mg tablet 40 mg PO DAILY Qty: 30 5RF carbidopa-levodopa 50-200 mg tablet extended release 1 tab PO TID Discharge Orders: Discharge Order (Routine); Ordered 11/05/24 Ordered By: Jodie Alexandra Admission Data Admit Date/Time: 10/28/24 16:15 Attending Provider: Caitlyn Solano Admit Provider: Jhony Dong Primary Care Provider: Jamie Morfin V. Other Providers: Jhony Dong; Ti Obrien; [facility]; [facility], [facility] Stay Data Consultations 10/28/24 15:52 ED Decision to Admit Stat 10/29/24 12:24 Consult Neurology Routine Diagnostic Imagining Performed Chest X-Ray 10/28/24 14:11 Exam: Chest one view portable. Reason for exam: Weakness Previous studies: Portable chest 09/28/2024 FINDINGS: Cardiac size is normal. Previous areas of linear opacity have resolved from the lungs, and at this time no active infiltrate or edema is seen. IMPRESSION: Negative for acute disease at this time. Electronically signed by Jude Merino 10-28-2024 2:55 PM Pending Results Patient Have Any Pending Studies at Discharge: No Discharge Instructions Given to Patient (Per Discharging Provider) Mr. Walters, Abilio were hospitalized after having progressive weakness at home - likely a consequence of your parkinson's disease. Your blood pressure was also dropping when you changed positions, called orthostatic hypotension and you were started on midodrine. Recommendations for neurology: 1. Continue midodrine 2.5 mg 3 times a day for now. 2. Continue branded extended release carbidopa/levodopa (Crexont) 2 tablets 3 times a day 3. Continue carbidopa/levodopa IR 25-251 tablet 4 times a day 4. Continue amantadine 100 mg twice a day for now. I am not certain what this medication is doing to help him, unless it is helping to control dyskinesias. 5. Could consider increasing ropinirole, however, according to Dr. Obrien he is very "brittle" and gets dyskinesias easily. Otherwise, remain on ropinirole 2 mg 3 times a day You should follow up with Dr. Obrien in 2-3 weeks. Please follow up with your PCP after discharge from rehab. Thank you for allowing us to participate in your care! Total Time Total Time Spent Total Time Spent (In Minutes): Time spent day of discharge 38 minutes including direct patient care, medication reconciliation, documentation, review of labs and images, and coordination of care. Coding Level of Care Code 59252 INP/OBS DISCH >30 MIN Diagnoses Ambulatory dysfunction R26.2 Parkinson disease G20.A1 Dyskinesia presence: unspecified whether dyskinesia Fluctuating manifestations: unspecified whether manifestations fluctuate Hyperbilirubinemia E80.6 Stage III pressure ulcer of buttock L89.303
[2024-11-05 15:21] VITALS: BP 160/99; PULSE 95; RESP 20; TEMP 98.1; O2SAT 94
== END 2024-11-05 17:09 | DRG 56 ==
LOC: ED 14:03 → 3N 16:15 → SUATTDRO 16:15 → INTOOBSV 16:15 → 3N 17:54

== ENCOUNTER 2025-01-30 14:54 | Inpatient (IN) ==
[2025-01-30] MEDS: SODIUM CHLORIDE 0.9% 1,000 ML IV ONE (16:04)
--- NOTE | 2025-01-30 16:04 | XRay Report ---
SINGLE VIEW CHEST CLINICAL HISTORY: Generalized weakness. FINDINGS: An AP, portable, upright chest radiograph is compared to study dated 10/28/2024 and correlat ed with chest CT dated 09/28/2024. The heart is enlarged. There is pulmonary vascular congestion. Atel ectasis is noted at the lung bases. No airspace consolidation or large pleural effusion is identified . No pneumothorax is seen. The skeletal structures are osteopenic. The bony thorax is grossly intact. IMPRESSION: 1. Cardiomegaly with pulmonary vascular congestion. 2. No airspace consolidation or pleural effusion is identified. ACT 112: Negative or not required by law. Electronically signed by: Tello Frias M.D. 01/30/2025 4:03 PM
[2025-01-30 16:22] LABS: Hematocrit (blood only) 49.5 % (42.0-52.0); Hemoglobin 16.8 g/dL (14.0-18.0); Immature Granulocytes # (auto) 0.06 K/uL (0.01-0.20); Immature Granulocytes % (auto) 0.6 %; Mean Corpuscular Hemoglobin 29.8 pg (25.0-34.0); Mean Corpuscular Volume 87.8 fL (80.0-100.0); Platelet Count 252 K/uL (130-400); RDW Standard Deviation 45.4 fL (36.4-46.3); Red Blood Count 5.64 M/uL (4.70-6.10); White Blood Count 10.84 K/ul (4.8-10.8)
[2025-01-30 16:40] LABS: Alanine Aminotransferase 3.0 U/L (7-52); Albumin Globulin Ratio 1.7 (0.9-2); Albumin Level 4.5 gm/dl (3.4-5.0); Alkaline Phosphatase 92.0 U/L (34-104); Anion Gap 9.0 (3-11); Bilirubin,Total 1.7 mg/dl (0.2-1.0); Blood Urea Nitrogen 29.0 mg/dl (6-23); Calcium 9.3 mg/dl (8.6-10.3); Carbon Dioxide 25.0 mmol/L (21-32); Chloride 108.0 mmol/L (98-107); Creatine Kinase 28.0 U/L (30-223); Creatinine Clr Calc Pharmacy 157.7 ml/min; Globulin 2.6 gm/dl (2.5-4.0); Glucose 106.0 mg/dl (70-99(Fasting)); Magnesium 2.1 mg/dl (1.7-2.4); Potassium 3.4 mmol/L (3.5-5.1); Sodium 142.0 mmol/L (136-145); Total Protein 7.1 gm/dl (6.0-8.3)
--- NOTE | 2025-01-30 16:47 | Emergency Department Note ---
Impression & Plan Failure to thrive in adult, Parkinson disease, Generalized weakness ED Provider Note NAME: ADAM CARMONA AGE: 59 SEX: M : 1965 ARRIVES VIA: Ambulance INFORMANT: Patient ED PROVIDER(S): Gordon Zepeda MD CHIEF COMPLAINT: Generalized weakness, referred for placement PLAN: Disposition: Admit MEDICAL DECISION MAKING: The patient is a 59-year-old gentleman with past medical history of Parkinson disease who presents emergency department via EMS and then accompanied by his and son for evaluation of worsening generalized weakness where he feels unable to be managed at home despite attempt following recent discharge with home health. Patient also follows with the wound clinic for a chronic sacral ulcer due to his immobility. Any fevers. Patient's son reports he was helping his father with his medications and it is possible he may have underdosed his Sinemet. On my evaluation the patient is no distress, afebrile stable vital signs. He appears clinically dry. Exhibits masked facies with slow cogwheel motor movements consistent patient's Parkinson disease. EKG is without overt acute ischemia. Chest x-ray suggests vascular congestion though patient does not appear overloaded and otherwise no focal consolidation or pleural effusion. WBC 10.8 K with neutrophilia with no left shift, nonspecific. H/H and platelets within normal limits. Chemistry without metabolic acidosis. Potassium 3.4 electrolytes otherwise unremarkable. LFTs unremarkable. CPK is not elevated. UA without evidence of infection. Patient and family agree with plan for admission for further management given declining at home where he is unable to manage due to his weakness in setting of Parkinson's. Case was discussed with Dario Alexander, [facility], with Dr. Burnette, [facility] hospitalist who will evaluate the patient for admission. Further management per admitting team. Triage Nursing notes reviewed and agree them. Prior/external medical records reviewed Vital Signs: reviewed Differential diagnosis: Infection, dehydration, metabolic abnormality, hypo/hyperglycemia, electrolyte disturbance, anemia, hypoxia, cardiac sources, intracerebral event, toxicologic, neurologic, as well as other pathologies. ER treatment provided: See below. Diagnostics interpreted by me: ECG: Normal sinus rhythm, 84 bpm, no ectopy, right bundle branch block, left anterior fascicular block, LVH, no overt ST elevation or depression, QTc 451, QRS 134. Cardiac Monitoring: An order for continuous cardiac monitoring was placed and demonstrated Normal sinus rhythm, 84 bpm, no ectopy. Laboratory studies: See below Imaging studies: See below Consultation(s): Case was discussed with Dario Alexander, [facility], with Dr. Burnette, [facility] hospitalist who will evaluate the patient for admission. HPI: Per MDM. ROS: See above HPI for pertinent positives & negatives. A total of 10 systems reviewed and were otherwise negative. VITALS:See Below PHYSICAL EXAMINATION: GENERAL: Awake, alert, fatigued/chronically ill-appearing, in no distress HENT: Normocephalic, atraumatic. Oropharynx with dry mucous membranes and otherwise unremarkable. EYES: Normal conjunctiva. Sclera non-icteric. NECK: Supple. No nuchal rigidity. FROM. No JVD. RESPIRATORY: Clear to auscultation. CARDIAC: Regular rate, normal rhythm. Extremities warm and well perfused. Pulses equal. ABDOMEN: Soft, non-distended. No tenderness to palpation. No rebound or guarding. No masses. MUSCULOSKELETAL: Chest examination reveals no tenderness. The back is symmetrical on inspection without obvious abnormality. There is no CVA tenderness to palpation. No joint edema. LOWER EXTREMITIES: Calves are equal size bilaterally and non-tender. No edema. No discoloration. NEURO: Masked facies with slow cogwheel motor movements consistent patient's Parkinson disease. No focal extremity weakness. SKIN: No rash or jaundice noted. 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 Dysautonomia Parkinson disease (Acute) Vitamin B12 deficiency Abnormal TSH Pressure ulcer of right buttock Urinary incontinence EKG abnormalities Tachycardia Hypertension Elevated glucose PSP (progressive supranuclear palsy) (Acute) Health care maintenance Excessive cerumen in both ear canals Hyperglycemia Medical History Hyperbilirubinemia Dyspnea on exertion Fracture of transverse process of lumbar vertebra Fall Tremor of right hand Sick Elevated TSH Elevated hemoglobin Shingles Elevated blood pressure reading Surgical History H/O oral surgery Family History Grandfather (Maternal) Myocardial infarction Brother Hypertension Mother Rheumatoid arthritis Denies family history of Colon cancer Ovarian cancer Prostate cancer Diabetes Breast cancer Stroke Social History Smoking Status: Never smoker Tobacco Type: Cigarettes Second Hand Exposure: No; Do You Dip or Chew Tobacco: No; Hx Alcohol Use: No Hx Substance Use: No Preferred Language: Surinamese Communication Ability: Effective Visual Impairment: Limited Hearing Ability: Normal Shingle Packer Required: No Beliefs That Will Affect Care: None marital status: Single Current Living Situation: Parent and Family current occupational status: retired current occupation: [employer] Feels Safe at Home: Yes Safety Concerns: Feels Safe At This Time Childhood Exposure to Second-Hand Smoke: No Dental Care, Regularly: No Physical Activity Frequency: Does not Exercise Seatbelt Use: always Assistive Devices: Glasses and Walker Allergies Allergies Allergy/AdvReac Type Severity Reaction Status Date / Time tetanus toxoid, adsorbed AdvReac Severe Significant Verified 01/29/25 13:23 allergic reaction Home Meds Home Medications Medication Instructions Recorded Confirmed cholecalciferol (vitamin D3) 25 1,000 units PO QAM 01/08/19 01/30/25 mcg (1,000 unit) capsule carbidopa 87.5 mg-levodopa ER 350 2 cap PO TID 08/29/24 01/30/25 mg capsule,immed and extend release (Crexont) nystatin 100,000 unit/gram topical 1 applic topical Q8 PRN Skin 09/22/24 01/30/25 powder (Klayesta) Irritation loratadine 10 mg tablet (Claritin) 10 mg PO QAM 10/28/24 01/30/25 acetaminophen 325 mg tablet 650 mg PO QID PRN Fever Or Pain 12/21/24 01/30/25 (Tylenol) ascorbic acid (vitamin C) 1,000 mg 1,000 mg PO QAM 01/30/25 01/30/25 tablet (Vitamin C) cyanocobalamin (vitamin B-12) 1,000 mcg PO QAM 01/30/25 01/30/25 1,000 mcg tablet finasteride 5 mg tablet 5 mg PO QAM 01/30/25 01/30/25 midodrine 2.5 mg tablet 2.5 mg PO TID 01/30/25 01/30/25 multivitamin with folic acid 400 1 tab PO QAM 01/30/25 01/30/25 mcg tablet (Daily-Joselin (with folic acid)) tamsulosin 0.4 mg capsule 0.4 mg PO QAM 01/30/25 01/30/25 Previous Rx's Medication Instructions Recorded amantadine HCl 100 mg capsule 100 mg PO BID #180 caps 08/06/24 polyethylene glycol 3350 17 gram 17 g PO DAILY #30 ea 10/01/24 oral powder packet (Miralax) gabapentin 100 mg capsule 100 mg PO TID 30 days #90 caps 10/22/24 ropinirole 2 mg tablet 2 mg PO TID 90 days #270 tabs 10/24/24 polyethylene glycol 3350 17 17 g PO DAILY PRN constipation 10/25/24 gram/dose oral powder (Miralax) #476 grams Results & Data (ED) Vital Signs Vital Signs - 24 hr 01/30/25 15:18 01/30/25 15:18 01/30/25 16:10 Temperature 36.9 C Temperature Source Oral Pulse Rate 87 82 Pulse Rate [Apical] 87 Respiratory Rate 16 16 16 Respiratory Effort / Characteristics Non-Labored Spontaneous Respiratory Depth Respiratory Pattern Blood Pressure 144/93 H Blood Pressure [Right Arm] 144/93 H Blood Pressure Mean 110 Blood Pressure Mean [Right Arm] 110 Pulse Oximetry 96 96 97 Oxygen Delivery Method Room Air Room Air Room Air Sepsis Recent Fever Within 48 Hours No Sepsis New/Unexplained Change in Mental Status No Sepsis Action Taken by Nursing No Action Required 01/30/25 16:21 01/30/25 17:05 Temperature Temperature Source Pulse Rate 80 Pulse Rate [Apical] 83 Respiratory Rate 18 Respiratory Effort / Characteristics Non-Labored Spontaneous Respiratory Depth Normal Respiratory Pattern Regular Blood Pressure Blood Pressure [Right Arm] 156/103 H Blood Pressure Mean Blood Pressure Mean [Right Arm] 120 Pulse Oximetry 93 Oxygen Delivery Method Room Air Sepsis Recent Fever Within 48 Hours Sepsis New/Unexplained Change in Mental Status Sepsis Action Taken by Nursing Laboratory Data Attestation: I reviewed the patient's lab results. 01/30/25 16:02 01/31/25 07:03 Lab Results 01/30/25 Range/Units 16:02 WBC 10.84 H (4.8-10.8) K/ul RBC 5.64 (4.70-6.10) M/uL Hgb 16.8 (14.0-18.0) g/dL Hct 49.5 (42.0-52.0) % MCV 87.8 (80.0-100.0) fL MCH 29.8 (25.0-34.0) pg MCHC 33.9 (32.0-36.0) g/dL RDW Std Deviation 45.4 (36.4-46.3) fL RDW Coeff of Diana 14.2 (11.5-14.5) % Plt Count 252 (130-400) K/uL MPV 9.2 L (9.4-12.4) fL Immature Gran % (Auto) 0.6 % Neut % (Auto) 73.8 % Lymph % (Auto) 16.9 % Bond % (Auto) 7.1 % Eos % (Auto) 1.2 % Baso % (Auto) 0.4 % Neut # (Auto) 8.01 H (1.40-6.50) K/uL Lymph # (Auto) 1.83 (1.20-3.40) K/uL Bond # (Auto) 0.77 H (0.11-0.59) K/uL Eos # (Auto) 0.13 (0.00-0.50) K/uL Baso # (Auto) 0.04 (0.00-0.20) K/uL Immature Gran # (Auto) 0.06 (0.01-0.20) K/uL PT 10.9 (9.0-12.0) Seconds INR 1.0 (0.9-1.1) Sodium 142 (136-145) mmol/L Potassium 3.4 L (3.5-5.1) mmol/L Chloride 108 H (98-107) mmol/L Carbon Dioxide 25 (21-32) mmol/L Anion Gap 9 (3-11) BUN 29 H (6-23) mg/dl Creatinine 0.55 L (0.6-1.4) mg/dl Est Cr Clr Drug Dosing 157.7 ml/min eGFR 112.75 BUN/Creatinine Ratio 52.7 H (10-20) Glucose 106 H (70-99(Fasting)) mg/dl Calcium 9.3 (8.6-10.3) mg/dl Phosphorus 2.9 (2.5-4.9) mg/dl Magnesium 2.1 (1.7-2.4) mg/dl Total Bilirubin 1.7 H (0.2-1.0) mg/dl AST 13 (13-39) U/L ALT 3 L (7-52) U/L Alkaline Phosphatase 92 (34-104) U/L Total Creatine Kinase 28 L (30-223) U/L Total Protein 7.1 (6.0-8.3) gm/dl Albumin 4.5 (3.4-5.0) gm/dl Globulin 2.6 (2.5-4.0) gm/dl Albumin/Globulin Ratio 1.7 (0.9-2) TSH 2.777 (0.300-4.500) uIu/ml Administered Medications Amantadine HCl (Amantadine Hcl 100 Mg Capsule) 100 mg PO BID [facility] Stop: 03/01/25 20:59 Last Admin: 01/31/25 08:37 Dose: 100 mg Documented By: Admin: 01/30/25 21:56 Dose: 100 mg Documented By: concepción Carbidopa/Levodopa (Carbidopa/Levodopa Er 87.5mg/350mg Cap) 2 each PO TID [facility] Stop: 03/02/25 08:59 Last Admin: 01/31/25 08:39 Dose: 2 each Documented By: RADHA Cyanocobalamin (Cyanocobalamin (B-12) 500 Mcg Tablet) 1,000 mcg PO QAM [facility] Stop: 03/02/25 08:59 Last Admin: 01/31/25 08:37 Dose: 1,000 mcg Documented By: RADHA Enoxaparin Sodium (Enoxaparin Inj 40 Mg/0.4 Ml Syr) 40 mg SQ QAM [facility] Stop: 03/02/25 08:59 Last Admin: 01/31/25 08:36 Dose: 40 mg Documented By: RADHA Finasteride (Finasteride 5 Mg Tab) 5 mg PO QAM [facility] Stop: 03/02/25 08:59 Last Admin: 01/31/25 08:38 Dose: 5 mg Documented By: RADHA Gabapentin (Gabapentin 100 Mg Cap) 100 mg PO TID [facility] Stop: 03/01/25 20:59 Last Admin: 01/31/25 08:38 Dose: 100 mg Documented By: Admin: 01/30/25 21:56 Dose: 100 mg Documented By: concepción Loratadine (Loratadine 10 Mg Tab) 10 mg PO [facility] Stop: 03/02/25 08:59 Last Admin: 01/31/25 08:37 Dose: 10 mg Documented By: RADHA Midodrine (Midodrine Hcl 2.5 Mg Tab) 2.5 mg PO TID@0900,1400,1800 [facility] Stop: 03/01/25 20:59 Last Admin: 01/31/25 08:37 Dose: 2.5 mg Documented By: Admin: 01/30/25 21:56 Dose: 2.5 mg Documented By: concepción Multivitamins (Multivitamin Tab) 1 tab PO [facility] Stop: 03/02/25 08:59 Last Admin: 01/31/25 08:38 Dose: 1 tab Documented By: RADHA Polyethylene Glycol (Polyethylene (Miralax) 17 Gm Pack) 17 gm PO DAILY [facility] Stop: 03/02/25 08:59 Last Admin: 01/31/25 08:36 Dose: 17 gm Documented By: RADHA Ropinirole HCl (Ropinirole Hcl 2 Mg Tablet) 2 mg PO TID@1100,1600,2100 [facility] Stop: 03/01/25 20:59 Last Admin: 01/31/25 12:32 Dose: 2 mg Documented By: Admin: 01/30/25 21:56 Dose: 2 mg Documented By: concepción Tamsulosin HCl (Tamsulosin Hcl 0.4 Mg Cap) 0.4 mg PO [facility] Stop: 03/02/25 08:59 Last Admin: 01/31/25 08:38 Dose: 0.4 mg Documented By: RADHA Vitamin D (Cholecalciferol 25 Mcg (1000 Units) Tab) 25 [facility]cg [facility] Stop: 03/02/25 08:59 Last Admin: 01/31/25 08:37 Dose: 25 mcg Documented By: RADHA Discontinued Medications Carbidopa/Levodopa (Carbidopa/Levodopa Er 87.5mg/350mg Cap) 2 each PO NOW ONE Stop: 01/30/25 22:04 Last Admin: 01/30/25 22:09 Dose: 2 each Documented By: concepción Sodium Chloride (Nss) 1,000 mls @ 999 mls/hr IV .Q1H1M ONE Stop: 01/30/25 16:26 Last Infusion: 01/30/25 18:52 Dose: Infused Documented By: Admin: 01/30/25 16:04 Dose: 999 mls/hr Documented By: EDUARDA Potassium Chloride (Potassium Chloride 10 Meq Tabcr) 10 meq PO NOW STA Stop: 01/30/25 17:52 Last Admin: 01/30/25 18:02 Dose: 10 meq Documented By: EDUARDA Imaging Data Radiologist's Impression: Chest X-Ray 01/30/25 15:26 SINGLE VIEW CHEST CLINICAL HISTORY: Generalized weakness. FINDINGS: An AP, portable, upright chest radiograph is compared to study dated 10/28/2024 and correlated with chest CT dated 09/28/2024. The heart is enlarged. There is pulmonary vascular congestion. Atelectasis is noted at the lung bases. No airspace consolidation or large pleural effusion is identified. No pneumothorax is seen. The skeletal structures are osteopenic. The bony thorax is grossly intact. IMPRESSION: 1. Cardiomegaly with pulmonary vascular congestion. 2. No airspace consolidation or pleural effusion is identified. ACT 112: Negative or not required by law. Electronically signed by: Tello Frias M.D. 01/30/2025 4:03 PM Discharge Plan Visit Data Chief Complaint: Referred by Doctor Stated Complaint: unable to ambulate ED Provider: Gordon Zepeda Discharge Problem: Failure to thrive in adult, Parkinson disease, Generalized weakness Patient Disposition: Admitted As Inpatient Condition: Fair Discharge Instructions Interventions: ED Discharge Assessment Last Done: 01/30/25 20:30 Discharge Problem: Parkinson disease Qualifiers: Dyskinesia presence: with dyskinesia Fluctuating manifestations: with fluctuating manifestations Qualified Code(s): G20.B2 - Parkinson's disease with dyskinesia, with fluctuations
[2025-01-30 16:54] LABS: INR 1.0 (0.9-1.1); Prothrombin Time 10.9 Seconds (9.0-12.0); Thyroid Stimulating Hormone 2.777 uIu/ml (0.300-4.500)
--- NOTE | 2025-01-30 16:58 | History & Physical Report ---
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 Patient reports he does not feel safe ambulating at home and is having difficulty with ADLs. History of admission in October 2024 for similar. 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 #Failure to thrive | ambulatory dysfunction PT/OT evaluations appreciated Fall precautions CM consult appreciated for placement needs #Dyskinesia due to Parkinson's disease | resting tremors Parkinson's diagnosis in 2018 with progressive weakness Continue amantadine, ropinirole Continue Crexont (will need to be verified through pharmacy; touched base with nursing staff) #Hypokalemia Mild K 3.4 on arrival Potassium chloride 10 mg p.o. x 1 Repeat a.m. BMP #Stage III pressure ulcer of buttocks Following with the wound care clinic Daily wound care Wound care nurse consult appreciated #H/o orthostatic hypotension | dysautonomia Continue midodrine Disposition: MedSurg VTE PPx: Lovenox 40 mg SQ q24h History of Present Illness Chief Complaint: Ambulatory dysfunction, placement needs Primary Care Provider: Jamie Morfin MD Mr. Walters is a 59-year-old male with PMH of progressive supranuclear palsy (PSP), Parkinson's disease, vitamin B12 deficiency, urinary incontinence, and dysautonomia. He presented via EMS on 01/30 at the behest of the physician group for placement. Patient reports he does not feel safe ambulating at home due to lower extremity weakness, and is having trouble with his ADLs. Per patient's brother at bedside (Adam), this has been a progressive worsening of ambulatory dysfunction over the past several months. Additionally, his brother had to help lift him up out of his chair today, otherwise he would have fallen. He also had difficulty getting up to get water today. Patient ambulates with a walker at baseline. He was recently at [facility] for physical rehab, but was discharged 3.5 weeks ago. Since that time, they knew within the first week that him being home "probably would not work out". Additionally, he has a stage III pressure ulcer on his buttocks, and currently being treated by home health nurses/the wound care clinic. Patient denies any lower back/pain around the buttocks at this time. Patient's brother helps to manage the medications at home. Patient took his regular morning and midday medications today. No recent change in medications. Patient denies smoking or tobacco use. Patient is mildly hypertensive at 144/93 at time of admission; vitals otherwise stable. 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 Patient denies fever, chills, night-sweats, dizziness/lightheadedness, headache, chest pain, chest palpitations, cough, abdominal pain, N/V/D, or pain in the legs. Allergies Allergy/AdvReac Type Severity Reaction Status Date / Time tetanus toxoid, adsorbed AdvReac Severe Significant Verified 01/29/25 13:23 allergic reaction Home Medications Medication Instructions Recorded Confirmed Type cholecalciferol (vitamin D3) 25 1,000 units PO QAM 01/08/19 01/30/25 History mcg (1,000 unit) capsule amantadine HCl 100 mg capsule 100 mg PO BID #180 caps 08/06/24 01/30/25 Rx carbidopa 87.5 mg-levodopa ER 350 2 cap PO TID 08/29/24 01/30/25 History mg capsule,immed and extend release (Crexont) nystatin 100,000 unit/gram topical 1 applic topical Q8 PRN Skin 09/22/24 01/30/25 History powder (Klayesta) Irritation polyethylene glycol 3350 17 gram 17 g PO DAILY #30 ea 10/01/24 01/30/25 Rx oral powder packet (Miralax) gabapentin 100 mg capsule 100 mg PO TID 30 days #90 caps 10/22/24 01/30/25 Rx ropinirole 2 mg tablet 2 mg PO TID 90 days #270 tabs 10/24/24 01/30/25 Rx polyethylene glycol 3350 17 17 g PO DAILY PRN constipation 10/25/24 01/30/25 Rx gram/dose oral powder (Miralax) #476 grams loratadine 10 mg tablet (Claritin) 10 mg PO QAM 10/28/24 01/30/25 History acetaminophen 325 mg tablet 650 mg PO QID PRN Fever Or Pain 12/21/24 01/30/25 History (Tylenol) ascorbic acid (vitamin C) 1,000 mg 1,000 mg PO QAM 01/30/25 01/30/25 History tablet (Vitamin C) cyanocobalamin (vitamin B-12) 1,000 mcg PO QAM 01/30/25 01/30/25 History 1,000 mcg tablet finasteride 5 mg tablet 5 mg PO QAM 01/30/25 01/30/25 History midodrine 2.5 mg tablet 2.5 mg PO TID 01/30/25 01/30/25 History multivitamin with folic acid 400 1 tab PO QAM 01/30/25 01/30/25 History mcg tablet (Daily-Joselin (with folic acid)) tamsulosin 0.4 mg capsule 0.4 mg PO QAM 01/30/25 01/30/25 History Past Med/Surg History Problem List (Updated 01/30/25 @ 17:03 by Dario Alexander PA-C) Failure to thrive in adult Hypokalemia Stage III pressure ulcer of buttock Ambulatory dysfunction 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 Dysautonomia Parkinson disease Vitamin B12 deficiency Abnormal TSH Pressure ulcer of right buttock Urinary incontinence EKG abnormalities Tachycardia Hypertension Elevated glucose PSP (progressive supranuclear palsy) (Acute) Health care maintenance Excessive cerumen in both ear canals Hyperglycemia Medical History 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 Ambulatory dysfunction Hyperbilirubinemia Dyspnea on exertion Fracture of transverse process of lumbar vertebra Fall Stage III pressure ulcer of buttock Tremor of right hand Sick Elevated TSH Elevated hemoglobin Shingles Elevated blood pressure reading Surgical History H/O oral surgery Family History Grandfather (Maternal) Myocardial infarction Brother Hypertension Mother Rheumatoid arthritis Denies family history of Colon cancer Ovarian cancer Prostate cancer Diabetes Breast cancer Stroke Social History Smoking Status: Never smoker Tobacco Type: Cigarettes Second Hand Exposure: No; Do You Dip or Chew Tobacco: No; Hx Alcohol Use: No Hx Substance Use: No Preferred Language: Estonian Communication Ability: Effective Visual Impairment: Limited Hearing Ability: Normal Tour Agent Required: No Beliefs That Will Affect Care: None marital status: Single Current Living Situation: Parent current occupational status: retired current occupation: [employer] Feels Safe at Home: Yes Childhood Exposure to Second-Hand Smoke: No Dental Care, Regularly: No Physical Activity Frequency: Does not Exercise Seatbelt Use: always Assistive Devices: Walker and Wheelchair Review of Systems 2 Review of Systems: See HPI above Physical Exam 2 Physical Exam: General: no acute distress; brother and mother at bedside; non-toxic appearing; cooperative; SpO2 93% on room HEENT: normocephalic, atraumatic; PERRLA; wearing glasses; vision and hearing intact Neck: supple; trachea midline Skin: warm, dry without signs of tenting; no cyanosis; no rashes, bruising, lesions, or erythema noted CV: chest wall NTP; RRR; S1/S2 normal; no murmurs/rubs/gallops; pulses intact and symmetric at radial, DP, and PT Lungs: no acute respiratory distress; symmetrical chest wall expansion; clear breath sounds across all lung aguilar w/o adventitious sounds; no wheezing ABD: Soft, NTP; BS present; no rebound/guarding; no distention Back: Upper spine NTP; lower spine NTP Buttocks: Stage III sacral ulcer appreciated on the medial aspect of the left buttocks (see photo below); cratered, erythematous; however, no purulent drainage or signs of acute infection MSK: Patient exhibits a resting tremor in his left hand; no edema noted in the LEs b/l, nonerythematous; 1/5 strength in the lower extremities bilaterally when asked to lift legs off the bed supine; 3/5 strength with plantar/dorsiflexion in the ankles bilateral; patient demonstrates ability to flex his knees ~45 degrees bilaterally Neuro: A&Ox3; oriented to day of the week; flat mood and affect; fluent speech; he reports sensation is intact and symmetric in lower extremities bilaterally Results & Data Results & Data Vital Signs (Past 12 Hours) Vital Signs Temp Pulse Pulse Resp BP BP Pulse Ox 01/30/25 16:10 82 16 97 01/30/25 15:18 87 16 144/93 H 96 01/30/25 15:18 36.9 C 87 16 144/93 H 96 O2 Del Method 01/30/25 16:10 Room Air 01/30/25 15:18 Room Air 01/30/25 15:18 Room Air Laboratory Results Abnormal lab results 01/30/25 Range/Units 16:02 WBC 10.84 H (4.8-10.8) K/ul MPV 9.2 L (9.4-12.4) fL Neut # (Auto) 8.01 H (1.40-6.50) K/uL Scurry # (Auto) 0.77 H (0.11-0.59) K/uL Potassium 3.4 L (3.5-5.1) mmol/L Chloride 108 H (98-107) mmol/L BUN 29 H (6-23) mg/dl Creatinine 0.55 L (0.6-1.4) mg/dl BUN/Creatinine Ratio 52.7 H (10-20) Glucose 106 H (70-99(Fasting)) mg/dl Total Bilirubin 1.7 H (0.2-1.0) mg/dl ALT 3 L (7-52) U/L Total Creatine Kinase 28 L (30-223) U/L Diagnostic Findings Chest X-Ray 01/30/25 15:26 SINGLE VIEW CHEST CLINICAL HISTORY: Generalized weakness. FINDINGS: An AP, portable, upright chest radiograph is compared to study dated 10/28/2024 and correlated with chest CT dated 09/28/2024. The heart is enlarged. There is pulmonary vascular congestion. Atelectasis is noted at the lung bases. No airspace consolidation or large pleural effusion is identified. No pneumothorax is seen. The skeletal structures are osteopenic. The bony thorax is grossly intact. IMPRESSION: 1. Cardiomegaly with pulmonary vascular congestion. 2. No airspace consolidation or pleural effusion is identified. ACT 112: Negative or not required by law. Electronically signed by: Tello Frias M.D. 01/30/2025 4:03 PM Code Status & VTE Plan Code Status Full code Discussed with patient and patient's brother/mother at bedside; while there is no medical POA paperwork in place, patient would like his brother (Adam) to be his medical proxy/decision maker in a medical emergency VTE Prophylaxis Plan VTE Prophylaxis will be ordered: Yes Supervising Physician Co-Signing Physician Notes The patient was seen by me. The chart was reviewed. Case discussed with LUIS Freedman. 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
[2025-01-30] MEDS: POTASSIUM CHLORIDE 10 MEQ TABCR PO STA (18:02)
[2025-01-30] MEDS ORDERED: MELATONIN 3 MG TAB PO PRN (20:57)
[2025-01-30] MEDS ORDERED: POLYETHYLENE (MIRALAX) 17 GM PACK PO PRN (20:57)
[2025-01-30] MEDS ORDERED: NYSTATIN POWDER 15GM BTL EXT PRN (20:57)
[2025-01-30] MEDS ORDERED: ONDANSETRON INJ 2 MG/ML 2 ML VIAL IV PRN (20:57)
[2025-01-30] MEDS: MIDODRINE HCL 2.5 MG TAB PO SCH (21:56)
[2025-01-30] MEDS: GABAPENTIN 100 MG CAP PO SCH (21:56)
[2025-01-30] MEDS: AMANTADINE HCL 100 MG CAPSULE PO SCH (21:56)
[2025-01-30] MEDS: CARBIDOPA PO ONE (22:09)
[2025-01-30] MEDS: LEVODOPA PO ONE (22:09)
[2025-01-31 08:20] LABS: Anion Gap 6.0 (3-11); Blood Urea Nitrogen 26.0 mg/dl (6-23); Calcium 8.8 mg/dl (8.6-10.3); Carbon Dioxide 25.0 mmol/L (21-32); Chloride 109.0 mmol/L (98-107); Creatinine Clr Calc Pharmacy 153.7 ml/min; Glucose 98.0 mg/dl (70-99(Fasting)); Potassium 3.4 mmol/L (3.5-5.1); Sodium 140.0 mmol/L (136-145)
[2025-01-31] MEDS: ENOXAPARIN INJ 40 MG/0.4 ML SYR SQ SCH (08:36)
[2025-01-31] MEDS: POLYETHYLENE (MIRALAX) 17 GM PACK PO SCH (08:36)
[2025-01-31] MEDS: CYANOCOBALAMIN (B-12) 500 MCG TABLET PO SCH (08:37)
[2025-01-31] MEDS: LORATADINE 10 MG TAB PO SCH (08:37)
[2025-01-31] MEDS: CHOLECALCIFEROL 25 MCG (1000 UNITS) TAB PO SCH (08:37)
[2025-01-31] MEDS: FINASTERIDE 5 MG TAB PO SCH (08:38)
[2025-01-31] MEDS: MULTIVITAMIN TAB PO SCH (08:38)
[2025-01-31] MEDS: TAMSULOSIN HCL 0.4 MG CAP PO SCH (08:38)
[2025-01-31] MEDS: LEVODOPA PO SCH (08:39)
[2025-01-31] MEDS: CARBIDOPA PO SCH (08:39)
[2025-01-31 09:00] LABS: Appearance Urine Clear (Clear); Bacteria Urine Automated None Seen (None Seen); Cast Urine Automated 0-2 /lpf (0-2); Epithelial Cell Urine Auto 0-2 /hpf (0-2); Glucose Urine UA Negative (Negative); RBC Urine Automated 0-2 /hpf (0-2); WBC Urine Automated 0-5 /hpf (0-5)
--- NOTE | 2025-01-31 13:30 | Hospitalist Progress Note ---
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 Patient reports he does not feel safe ambulating at home and is having difficulty with ADLs. History of admission in October 2024 for similar. 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 #Failure to thrive | ambulatory dysfunction PT/OT evaluations appreciated Per review of initial evaluation on 01/31, patient is a high fall risk with severely limited ROM, strength, balance, and tolerance to activity; recommending acute rehab Fall precautions CM consult appreciated for placement needs #Dyskinesia due to Parkinson's disease | resting tremors Parkinson's diagnosis in 2018 with progressive weakness Aspiration precautions Continue amantadine, ropinirole Continue Crexont (verified through pharmacy) #Hypokalemia Mild; K 3.4 on arrival Potassium chloride 20 mg p.o. x 1 Trend #Stage III pressure ulcer of buttocks Following with the wound care clinic Daily wound care Wound care nurse consult appreciated #H/o orthostatic hypotension | dysautonomia Continue midodrine Disposition: MedSurg VTE PPx: Lovenox 40 mg SQ q24h Admission and Anticipated Discharge Date Admission Date: January 30, 2025 Subjective Mr. Walters is doing well today. He denies any pain in his legs. His main concern is lower extremity weakness and generalized fatigue. When PT came to work with him today, he reports he was able to stand, "but not walk". Overall, he is eating and sleeping well, and has no new complaints at this time. ROS: Patient endorses lower extremity weakness and ambulatory dysfunction. Patient denies fever, chest pain, SOB, cough, abdominal pain, N/V/D, changes in urinary/bowel habits, or pain in his legs. Review of Systems Review of Systems: See HPI above Physical Exam Physical Exam: General: no acute distress; sitting upright in his chair watching TV; non-toxic appearing; cooperative; frail-appearing; SpO2 93% on room HEENT: normocephalic, atraumatic; PERRLA; wearing glasses; vision and hearing intact Neck: supple; trachea midline Skin: warm, dry without signs of tenting; no cyanosis; no rashes, bruising, lesions, or erythema noted CV: chest wall NTP; RRR; S1/S2 normal; no murmurs/rubs/gallops; pulses intact and symmetric at radial, DP, and PT Lungs: no acute respiratory distress; symmetrical chest wall expansion; clear breath sounds across all lung aguilar w/o adventitious sounds; no wheezing ABD: Soft, NTP; BS present; no rebound/guarding; no distention Back: Upper spine NTP; lower spine NTP MSK: Patient exhibits a resting tremor in his left hand; no edema noted in the LEs b/l, nonerythematous; 4/5 strength in the lower EXTR bilaterally when lifting her knees up against resistance sitting in the chair Neuro: A&Ox3; oriented to day of the week; flat mood and affect; fluent speech; he reports sensation is intact and symmetric in lower extremities bilaterally Gait: Patient demonstrates ability to push-up off his chair and stand independent; however, he can only take a few slow shuffling steps forward before he appears off balance Results & Data Results & Data Vital Signs (Past 12 Hours) Vital Signs Temp Resp BP Pulse Ox O2 Del Method 01/31/25 09:00 Room Air 01/31/25 07:00 36.3 C L 18 120/83 93 Room Air PG Care Time/CCT Total # of Minutes Spent Total Time Spent with Patient: Total time spent is greater than 50% in coordination of care (as documented) at patient's floor/unit and/or counseling patient: Coding [place] [address] SUB INP/OBS CARE 03/10MIN Patient Type Established History Detailed Exam Detailed Medical Decision Making Low Complexity Diagnoses Failure to thrive in adult R62.7 Ambulatory dysfunction R26.2 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
[2025-01-31] MEDS: POTASSIUM CHLORIDE CRTAB 20 MEQ TABCR PO STA (13:41)
--- NOTE | 2025-01-31 22:22 | Electrocardiogram Report ---
Test Reason : Blood Pressure : */* mmHG Vent. Rate : 84 BPM Atrial Rate : 84 BPM P-R Int : 162 ms QRS Dur : 134 ms QT Int : 382 ms P-R-T Axes : 23 -47 26 degrees QTcB Int : 451 ms Normal sinus rhythm Right bundle branch block Left anterior fascicular block Bifascicular block Minimal voltage criteria for LVH, may be normal variant ( R in aVL ) When compared with ECG of 26-Sep-2024 01:36, No significant change Confirmed by Biju Beth ([id number]) on 01/31/2025 10:21:51 PM Referred By: REFERRED SELF Confirmed By: Biju Beth
[2025-02-01 07:08] LABS: Hematocrit (blood only) 48.2 % (42.0-52.0); Hemoglobin 16.5 g/dL (14.0-18.0); Mean Corpuscular Hemoglobin 29.2 pg (25.0-34.0); Mean Corpuscular Volume 85.3 fL (80.0-100.0); Platelet Count 236 K/uL (130-400); RDW Standard Deviation 42.3 fL (36.4-46.3); Red Blood Count 5.65 M/uL (4.70-6.10); White Blood Count 9.82 K/ul (4.8-10.8)
[2025-02-01 07:24] LABS: Anion Gap 8.0 (3-11); Blood Urea Nitrogen 18.0 mg/dl (6-23); Calcium 9.1 mg/dl (8.6-10.3); Carbon Dioxide 23.0 mmol/L (21-32); Chloride 106.0 mmol/L (98-107); Creatinine Clr Calc Pharmacy 166.0 ml/min; Glucose 93.0 mg/dl (70-99(Fasting)); Potassium 3.6 mmol/L (3.5-5.1); Sodium 137.0 mmol/L (136-145)
--- NOTE | 2025-02-01 12:36 | Hospitalist Progress Note ---
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 Patient reports he does not feel safe ambulating at home and is having difficulty with ADLs. History of admission in October 2024 for similar. 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 #Failure to thrive | ambulatory dysfunction PT/OT evaluations appreciated Per review of initial evaluation on 01/31, patient is a high fall risk with severely limited ROM, strength, balance, and tolerance to activity; recommending acute rehab Fall precautions CM consult appreciated for placement needs Referral sent to [facility] in [facility], awaiting response #Dyskinesia due to Parkinson's disease | resting tremors Parkinson's diagnosis in 2017 with progressive weakness Aspiration precautions Continue amantadine, ropinirole Continue Crexont (verified through pharmacy) #Stage III pressure ulcer of buttocks (resolved) Patient still follows with the wound care clinic for history of stage III pressure ulcer Pressure ulcer POA, but largely healed over at this time; no signs of acute infection Wound care nurse consult appreciated #H/o orthostatic hypotension | dysautonomia Continue midodrine Disposition: Medically stable for placement; awaiting response from SNF for long-term care needs VTE PPx: Lovenox 40 mg SQ q24h Admission and Anticipated Discharge Date Admission Date: January 30, 2025 Subjective Mr. Walters reports he is doing marginally better today compared yesterday. His legs still feel stiff, but he was able to stand and take a few steps with PT earlier in the day. No other complaints at this time. ROS: Patient endorses lower extremity weakness and ambulatory dysfunction. Patient denies fever, chest pain, SOB, cough, abdominal pain, N/V/D, changes in urinary/bowel habits, or pain in his legs. Review of Systems Review of Systems: See HPI above Physical Exam Physical Exam: General: no acute distress; sitting upright in his chair watching TV and eating lunch; non-toxic appearing; cooperative; frail-appearing; SpO2 96% on room HEENT: normocephalic, atraumatic; PERRLA; wearing glasses; vision and hearing intact Neck: supple; trachea midline Skin: warm, dry without signs of tenting; no cyanosis; no rashes, bruising, lesions, or erythema noted CV: chest wall NTP; RRR; S1/S2 normal; no murmurs/rubs/gallops; pulses intact and symmetric at radial, DP, and PT Lungs: no acute respiratory distress; symmetrical chest wall expansion; clear breath sounds across all lung aguilar w/o adventitious sounds; no wheezing ABD: Soft, NTP; BS present; no rebound/guarding; no distention Back: Upper spine NTP; lower spine NTP MSK: Patient exhibits a resting tremor in his left hand; no edema noted in the LEs b/l, nonerythematous; 4/5 strength in the lower EXTR bilaterally when lifting her knees up against resistance sitting in the chair Neuro: A&Ox3; oriented to day of the week; flat mood and affect; fluent speech; he reports sensation is intact and symmetric in lower extremities bilaterally Results & Data Results & Data Vital Signs (Past 12 Hours) Vital Signs Temp Pulse Pulse Resp BP BP Pulse Ox 02/01/25 11:48 36.2 C L 83 22 131/88 96 02/01/25 11:35 02/01/25 07:28 37.2 C 73 21 163/92 H 93 O2 Del Method 02/01/25 11:48 Room Air 02/01/25 11:35 Room Air 02/01/25 07:28 Room Air PG Care Time/CCT Total # of Minutes Spent Total Time Spent with Patient: Total time spent is greater than 50% in coordination of care (as documented) at patient's floor/unit and/or counseling patient: Coding [place] [address] SUB INP/OBS CARE 03/10MIN Patient Type Established History Detailed Exam Detailed Medical Decision Making Low Complexity Diagnoses Failure to thrive in adult R62.7 Ambulatory dysfunction R26.2 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
--- NOTE | 2025-02-02 08:49 | Hospitalist Progress Note ---
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 Patient reports he does not feel safe ambulating at home and is having difficulty with ADLs. History of admission in October 2024 for similar. 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 #Failure to thrive | ambulatory dysfunction PT/OT evaluations appreciated Per review of initial evaluation on 01/31, patient is a high fall risk with severely limited ROM, strength, balance, and tolerance to activity; recommending acute rehab Fall precautions CM consult appreciated for placement needs Referral sent for long-term placement [facility] does not have any long-term beds available Awaiting response from [facility] #Dyskinesia due to Parkinson's disease | resting tremors Parkinson's diagnosis in 2018 with progressive weakness Aspiration precautions Continue amantadine, ropinirole Continue Crexont (verified through pharmacy) #Stage III pressure ulcer of buttocks (resolved) Patient still follows with the wound care clinic for history of stage III pressure ulcer Pressure ulcer POA, but largely healed over at this time; no signs of acute infection Wound care nurse consult appreciated #H/o orthostatic hypotension | dysautonomia Continue midodrine Disposition: Medically stable for placement; awaiting response from SNF for long-term care needs VTE PPx: Lovenox 40 mg SQ q24h Admission and Anticipated Discharge Date Admission Date: January 30, 2025 Subjective Mr. Walters says he feels "better" today compared to yesterday. His legs feel stiff but good. Eating and sleeping well. Patient still requires 2 people to help lift him off the chair, but he was able to take a few steps to the commode earlier today. Patient had 2 BMs yesterday; none today. No new complaints at this time. ROS: Patient endorses lower extremity weakness and ambulatory dysfunction. Patient denies fever, chest pain, SOB, cough, abdominal pain, N/V/D, changes in urinary/bowel habits, or pain in his legs. Review of Systems Review of Systems: See HPI above Physical Exam Physical Exam: General: no acute distress; sitting upright in his chair watching TV and eating lunch; non-toxic appearing; cooperative; frail-appearing; SpO2 94% on room HEENT: normocephalic, atraumatic; PERRLA; wearing glasses; vision and hearing intact Neck: supple; trachea midline Skin: warm, dry without signs of tenting; no cyanosis; no rashes, bruising, lesions, or erythema noted CV: chest wall NTP; RRR; S1/S2 normal; no murmurs/rubs/gallops; pulses intact and symmetric at radial, DP, and PT Lungs: no acute respiratory distress; symmetrical chest wall expansion; clear breath sounds across all lung aguilar w/o adventitious sounds; no wheezing ABD: Soft, NTP; BS present; no rebound/guarding; no distention Back: Upper spine NTP; lower spine NTP MSK: Patient exhibits a resting tremor in his left hand; no edema noted in the LEs b/l, nonerythematous; 4/5 strength in the lower EXTR bilaterally when lifting her knees up against resistance sitting in the chair Neuro: A&Ox3; oriented to day of the week; flat mood and affect; fluent speech; he reports sensation is intact and symmetric in lower extremities bilaterally Results & Data Results & Data Vital Signs (Past 12 Hours) Vital Signs Temp Pulse Resp BP Pulse Ox O2 Del Method 02/02/25 07:12 36.3 C L 68 16 135/87 94 Room Air 02/01/25 23:11 36.3 C L 76 18 118/80 96 Room Air PG Care Time/CCT Total # of Minutes Spent Total Time Spent with Patient: Total time spent is greater than 50% in coordination of care (as documented) at patient's floor/unit and/or counseling patient: Coding [place] [address] SUB INP/OBS CARE 03/10MIN Patient Type Established History Detailed Exam Detailed Medical Decision Making Low Complexity Diagnoses Failure to thrive in adult R62.7 Ambulatory dysfunction R26.2 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
[2025-02-02] MEDS: ACETAMINOPHEN 325 MG TAB PO PRN (08:59)
[2025-02-03] MEDS ORDERED: PNEUMOCOCCAL VACCINE (PCV20) 20-VAL CONJ-DIP CRM/PF 0.5 ML SYR IM ONE (08:25)
--- NOTE | 2025-02-03 10:57 | Hospitalist Progress Note ---
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 #Failure to thrive | ambulatory dysfunction Patient does not feel safe ambulating at home, struggling with ADLs. Hx of admission 11/08 for similar. 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 PT/OT consulted --> recommend rehab at discharge. CM following, referral pending for [facility]. Fall precautions #Dyskinesia due to Parkinson's disease | resting tremors Parkinson's diagnosis in 2018 with progressive weakness Aspiration precautions Continue amantadine, ropinirole, Crexont #Stage III pressure ulcer of buttocks (resolved) Patient still follows with the wound care clinic for history of stage III pressure ulcer Pressure ulcer POA, but largely healed over at this time; no signs of acute infection Wound care nurse consult appreciated #H/o orthostatic hypotension | dysautonomia - Continue midodrine Disposition: Medically stable for placement; awaiting response from SNF for long-term care needs VTE PPx: Lovenox 40 mg SQ q24h Code: full Admission and Anticipated Discharge Date Admission Date: January 30, 2025 Supervising Physician Co-Signing Physician Notes PA Supervision Note: I did not personally see or examine the patient today, but I verified all webster points of LUIS Choi's assessment and plan with the following exceptions/additions: None Subjective Tim was seen & examined this morning. He states he is feeling okay today, only complaint being weakness. Denied any additional complaints. Physical Exam Physical Exam: General: NAD, VS: BP 128/83; P71; R20' T36.3C Resp: normal respiratory effort Extremities: no edema, + tremor Neuro: A&O x3 Skin: intact, no lesions noted Results & Data Results & Data Vital Signs (Past 12 Hours) Vital Signs Temp Pulse Resp BP Pulse Ox O2 Del Method 02/03/25 07:36 36.3 C L 71 20 128/83 96 Room Air PG Care Time/CCT Total # of Minutes Spent Total Time Spent with Patient: Total time spent is greater than 50% in coordination of care (as documented) at patient's floor/unit and/or counseling patient: Coding Level of Care Code 18494 SUB INP/OBS CARE Diagnoses Failure to thrive in adult R62.7 Ambulatory dysfunction R26.2 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
--- NOTE | 2025-02-04 17:19 | Hospitalist Progress Note ---
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 #Failure to thrive | ambulatory dysfunction Patient does not feel safe ambulating at home, struggling with ADLs. Hx of admission 11/08 for similar. 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 PT/OT consulted --> recommend rehab at discharge. CM following, will need to obtain additional referrals from patients brother. Fall precautions #Dyskinesia due to Parkinson's disease | resting tremors Parkinson's diagnosis in 2018 with progressive weakness Aspiration precautions Continue amantadine, ropinirole, Crexont #Stage III pressure ulcer of buttocks (resolved) Patient still follows with the wound care clinic for history of stage III pressure ulcer Pressure ulcer POA, but largely healed over at this time; no signs of acute infection Wound care nurse consult appreciated #H/o orthostatic hypotension | dysautonomia - Continue midodrine Disposition: Medically stable for placement; awaiting response from SNF for long-term care needs VTE PPx: Lovenox 40 mg SQ q24h Code: full Admission and Anticipated Discharge Date Admission Date: January 30, 2025 Debbi Dumont was seen & examined this morning. Only complaint was weakness. Physical Exam Physical Exam: General: NAD, VS: BP 114/73; P98; R16; T36.4C Resp: normal respiratory effort Extremities: Moves all extremities, no edema Neuro: A&O x3 Skin: intact, no lesions noted Results & Data Results & Data Vital Signs (Past 12 Hours) Vital Signs Temp Pulse Resp BP Pulse Ox O2 Del Method 02/04/25 14:41 36.4 C L 98 H 16 114/73 95 Room Air 02/04/25 07:48 36.2 C L 77 16 124/85 95 Room Air PG Care Time/CCT Total # of Minutes Spent Total Time Spent with Patient: Total time spent is greater than 50% in coordination of care (as documented) at patient's floor/unit and/or counseling patient: Coding Level of Care Code 24926 SUB INP/OBS CARE Diagnoses Failure to thrive in adult R62.7 Ambulatory dysfunction R26.2 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
--- NOTE | 2025-02-05 13:19 | Hospitalist Progress Note ---
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 #Failure to thrive | ambulatory dysfunction Patient does not feel safe ambulating at home, struggling with ADLs. Hx of admission 11/08 for similar. 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 PT/OT consulted --> recommend rehab at discharge. CM following, Auth submitted for [facility] on 02/05. Fall precautions #Dyskinesia due to Parkinson's disease | resting tremors Parkinson's diagnosis in 2018 with progressive weakness Aspiration precautions Continue amantadine, ropinirole, Crexont #Stage III pressure ulcer of buttocks (resolved) Patient still follows with the wound care clinic for history of stage III pressure ulcer Pressure ulcer POA, but largely healed over at this time; no signs of acute infection Wound care nurse consult appreciated #H/o orthostatic hypotension | dysautonomia - Continue midodrine Disposition: Medically stable for placement; awaiting response from SNF for long-term care needs VTE PPx: Lovenox 40 mg SQ q24h Code: full Admission and Anticipated Discharge Date Admission Date: January 30, 2025 Debbi Dumont was seen & examined this morning. He reported feeling weak and slightly light headed today. Reports he gets light headed on occasion. Denied any additional complaints Physical Exam Physical Exam: General: NAD, VS: BP 135/87; P73; R15; T36.3C Resp: normal respiratory effort, Extremities: Moves all extremities, no edema Neuro: A&O x3, Skin: intact, no lesions noted Results & Data Results & Data Vital Signs (Past 12 Hours) Vital Signs Temp Pulse Resp BP Pulse Ox O2 Del Method 02/05/25 07:52 36.3 C L 73 15 135/87 98 Room Air PG Care Time/CCT Total # of Minutes Spent Total Time Spent with Patient: Total time spent is greater than 50% in coordination of care (as documented) at patient's floor/unit and/or counseling patient: Coding Level of Care Code 80745 SUB INP/OBS CARE Diagnoses Failure to thrive in adult R62.7 Ambulatory dysfunction R26.2 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
[2025-02-06 07:08] LABS: Hematocrit (blood only) 48.3 % (42.0-52.0); Hemoglobin 16.6 g/dL (14.0-18.0); Mean Corpuscular Hemoglobin 29.4 pg (25.0-34.0); Mean Corpuscular Volume 85.6 fL (80.0-100.0); Platelet Count 242 K/uL (130-400); RDW Standard Deviation 42.8 fL (36.4-46.3); Red Blood Count 5.64 M/uL (4.70-6.10); White Blood Count 8.72 K/ul (4.8-10.8)
[2025-02-06 07:58] LABS: Anion Gap 9.0 (3-11); Blood Urea Nitrogen 14.0 mg/dl (6-23); Calcium 9.3 mg/dl (8.6-10.3); Carbon Dioxide 26.0 mmol/L (21-32); Chloride 103.0 mmol/L (98-107); Creatinine Clr Calc Pharmacy 127.7 ml/min; Glucose 89.0 mg/dl (70-99(Fasting)); Potassium 3.8 mmol/L (3.5-5.1); Sodium 138.0 mmol/L (136-145)
--- NOTE | 2025-02-06 13:58 | Discharge Summary ---
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 #Failure to thrive | ambulatory dysfunction Patient does not feel safe ambulating at home, struggling with ADLs. Hx of admission 11/08 for similar. 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 PT/OT consulted --> recommend rehab at discharge CM following, Auth submitted for [facility] on 02/05; approved on 02/06 Fall precautions #Dyskinesia due to Parkinson's disease | resting tremors Parkinson's diagnosis in 2018 with progressive weakness Aspiration precautions Continue amantadine, ropinirole, Crexont #Stage III pressure ulcer of buttocks (resolved) Patient still follows with the wound care clinic for history of stage III pressure ulcer Pressure ulcer POA, but largely healed over at this time; no signs of acute infection Wound care nurse consult appreciated #H/o orthostatic hypotension | dysautonomia - Continue midodrine Day of discharge 02/06: Patient is mildly hypertensive at 157/71, and mildly tachycardic around 90 to 100 bpm at time of discharge; vitals otherwise stable. Mr. Walters has no new complaints this morning. He reports he slept well last night, and has been eating and drinking well in the hospital (had a omelette and oatmeal this morning). His legs feel no different than they did yesterday. And he has been doing okay getting up out of bed to get into the chair. He denies any pain in his legs or body at this time. Discussed the need for long-term placement with both patient and patient's brother (Adam) at bedside. While patient reports that he would not like to be at [facility] long-term, the reason that they do not want to seek LTC facilities for the way so that patient's mother can visit him regularly. Brother (Bernardino) at bedside reports that they plan to put him on the waiting list for long-term placement at [facility]. ROS: Patient endorses lower extremity weakness and ambulatory dysfunction. Patient denies fever, chest pain, SOB, cough, abdominal pain, N/V/D, changes in urinary/bowel habits, or pain in his legs. Disposition: Discharge to [facility] for long-term care Note: Patient hopes to eventually eventually get on the waitlist for [facility] for long-term placement. Admission HPI Per Admitting Provider Mr. Walters is a 59-year-old male with PMH of progressive supranuclear palsy (PSP), Parkinson's disease, vitamin B12 deficiency, urinary incontinence, and dysautonomia. He presented via EMS on 01/30 at the behest of the physician group for placement. Patient reports he does not feel safe ambulating at home due to lower extremity weakness, and is having trouble with his ADLs. Per patient's brother at bedside (Adam), this has been a progressive worsening of ambulatory dysfunction over the past several months. Additionally, his brother had to help lift him up out of his chair today, otherwise he would have fallen. He also had difficulty getting up to get water today. Patient ambulates with a walker at baseline. He was recently at [facility] for physical rehab, but was discharged 3.5 weeks ago. Since that time, they knew within the first week that him being home "probably would not work out". Additionally, he has a stage III pressure ulcer on his buttocks, and currently being treated by home health nurses/the wound care clinic. Patient denies any lower back/pain around the buttocks at this time. Patient's brother helps to manage the medications at home. Patient took his regular morning and midday medications today. No recent change in medications. Patient denies smoking or tobacco use. Patient is mildly hypertensive at 144/93 at time of admission; vitals otherwise stable. 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 Patient denies fever, chills, night-sweats, dizziness/lightheadedness, headache, chest pain, chest palpitations, cough, abdominal pain, N/V/D, or pain in the legs. Admission Exam Per Admitting Provider General: no acute distress; brother and mother at bedside; non-toxic appearing; cooperative; SpO2 93% on room HEENT: normocephalic, atraumatic; PERRLA; wearing glasses; vision and hearing intact Neck: supple; trachea midline Skin: warm, dry without signs of tenting; no cyanosis; no rashes, bruising, lesions, or erythema noted CV: chest wall NTP; RRR; S1/S2 normal; no murmurs/rubs/gallops; pulses intact and symmetric at radial, DP, and PT Lungs: no acute respiratory distress; symmetrical chest wall expansion; clear breath sounds across all lung aguilar w/o adventitious sounds; no wheezing ABD: Soft, NTP; BS present; no rebound/guarding; no distention Back: Upper spine NTP; lower spine NTP Buttocks: Stage III sacral ulcer appreciated on the medial aspect of the left buttocks; cratered, erythematous; however, no purulent drainage or signs of acute infection MSK: Patient exhibits a resting tremor in his left hand; no edema noted in the LEs b/l, nonerythematous; 1/5 strength in the lower extremities bilaterally when asked to lift legs off the bed supine; 3/5 strength with plantar/dorsiflexion in the ankles bilateral; patient demonstrates ability to flex his knees ~45 degrees bilaterally Neuro: A&Ox3; oriented to day of the week; flat mood and affect; fluent speech; he reports sensation is intact and symmetric in lower extremities bilaterally Discharge Exam General: no acute distress; sitting upright in his chair watching TV and eating lunch; non-toxic appearing; cooperative; frail-appearing; SpO2 93% on room HEENT: normocephalic, atraumatic; PERRLA; wearing glasses; tongue smacking c onsistent with tardive dyskinesia; vision and hearing intact Neck: supple; trachea midline Skin: warm, dry without signs of tenting; no cyanosis; no rashes, bruising, lesions, or erythema noted CV: chest wall NTP; RRR; S1/S2 normal; no murmurs/rubs/gallops; pulses intact and symmetric at radial, DP, and PT Lungs: no acute respiratory distress; symmetrical chest wall expansion; clear breath sounds across all lung aguilar w/o adventitious sounds; no wheezing ABD: Soft, NTP; BS present; no rebound/guarding; no distention Back: Upper spine NTP; lower spine NTP MSK: Patient exhibits a resting tremor in his right hand; no edema noted in the LEs b/l, nonerythematous; 4/5 strength in the lower EXTR bilaterally when lifting her knees up against resistance sitting in the chair Neuro: A&Ox3; oriented to day of the week; flat mood and affect; garbled speech; coherent thought processes; no facial droop; he reports sensation is intact and symmetric in lower extremities bilaterally Discharge Plan Discharge Items Patient Disposition: Transfer [facility] Fac Reason For Visit: AMBULATORY DYSFUNCTION, PLACEMENT Discharge Diagnosis: Ambulatory dysfunction, lower extremity weakness, awaiting long-term placement Condition on Discharge: Fair Activity: As commented below Activity Comment: Gradually increase activity per PT/OT recommendations Non-emergency contact: Primary Care Provider Call non-emergency contact if: you have any medication questions and your symptoms worsen Follow-up/Referrals: Jamie Morfin MD [Primary Care Provider] - Diet: Regular Diet Texture: Dental soft (bite-sized) Addtl Attending Provider Instructions: You were hospitalized at [facility] [address] from 01/30 to 02/07 due to leg weakness and difficulty with ambulation. You opted for admission while special education case manager look to find long-term placement for you. Unfortunately, many assisted facilities (such as [facility] and [facility]) do not have beds open at this time. We will plan to discharge you to [facility] upon discharge, we recommend you continue to work with PT/OT to build up strength and conditioning of your lower extremities. You may continue to take all of your medications as previously prescribed prior to hospitalization Please plan to follow-up with your PCP in the next 7 to 10 days for a transitional care appointment. If you develop any new or worsening symptoms, such as fever, chills, chest pain, trouble breathing, intractable lower back pain, nausea, vomiting, fainting spells, or inability to walk, please return to the emergency department immediately. It was a pleasure taking care of you. Please reach out with any questions or concerns. Sincerely, The Hospital medicine team at [facility] Pending Studies at Discharge: No Stand-Alone Forms: My [facility] Skilled Items Patient informed of condition?: Yes DNR: No Discharge Level of Care: Skilled Communicable Disease: No Discharge Prognosis: Stable Lines: None Urinary Catheter: No Medications and DC Order Prescriptions: Continued amantadine HCl 100 mg capsule 100 mg PO BID Qty: 180 1RF gabapentin 100 mg capsule 100 mg PO TID 30 Days Qty: 90 2RF Rx Instructions: TAKES AT 11AM,4PM,9PM ropinirole 2 mg tablet 2 mg PO TID 90 Days Qty: 270 2RF Rx Instructions: TAKES AT 11AM,4PM,9PM cholecalciferol (vitamin D3) 1,000 unit capsule 1,000 units PO QAM Crexont 87.5-350 mg capsule,IR -extend rel,biphase 2 cap PO TID Rx Instructions: WILL NEED TO BRING OWN MED IF ADMITTED polyethylene glycol 3350 [Miralax] 17 gram/dose powder 17 g PO DAILY PRN (Reason: constipation) Qty: 476 1RF acetaminophen [Tylenol] 325 mg tablet 650 mg PO QID PRN (Reason: Fever Or Pain) tamsulosin 0.4 mg capsule 0.4 mg PO QAM midodrine 2.5 mg tablet 2.5 mg PO TID Rx Instructions: TAKES AT 11AM,4PM,9PM ascorbic acid (vitamin C) [Vitamin C] 1,000 mg Tablet 1,000 mg PO QAM finasteride 5 mg tablet 5 mg PO QAM cyanocobalamin (vitamin B-12) 1,000 mcg Tablet 1,000 mcg PO QAM multivitamin with folic acid [Daily-Joselin (with folic acid)] 400 mcg tablet 1 tab PO QAM nystatin [Klayesta] 100,000 unit/gram powder 1 applic TOPICAL Q8 PRN (Reason: Skin Irritation) polyethylene glycol 3350 [Miralax] 17 gram Powder In Packet 17 g PO DAILY Qty: 30 0RF Hold Instructions: Provider's Order - while having diarrhea loratadine [Claritin] 10 mg Tablet 10 mg PO QAM Discharge Orders: Discharge Order (Routine); Ordered 02/07/25 Ordered By: Dario Alexander Admission Data Admit Date/Time: 01/30/25 17:31 Attending Provider: Gianfranco Boudreaux Admit Provider: Russell Burnette Primary Care Provider: Jamie Morfin V. Other Providers: Russell Burnette; [facility]; [facility]; [facility], Hospital Stay Data Consultations 01/30/25 17:02 ED Decision to Admit Stat Discharge Instructions Given to Patient (Per Discharging Provider) You were hospitalized at [facility] [address] from 01/30 to 02/07 due to leg weakness and difficulty with ambulation. You opted for admission while special education case manager look to find long-term placement for you. Unfortunately, many assisted facilities (such as [facility] and [facility]) do not have beds open at this time. We will plan to discharge you to [facility] upon discharge, we recommend you continue to work with PT/OT to build up strength and conditioning of your lower extremities. You may continue to take all of your medications as previously prescribed prior to hospitalization Please plan to follow-up with your PCP in the next 7 to 10 days for a transitional care appointment. If you develop any new or worsening symptoms, such as fever, chills, chest pain, trouble breathing, intractable lower back pain, nausea, vomiting, fainting spells, or inability to walk, please return to the emergency department immediately. It was a pleasure taking care of you. Please reach out with any questions or concerns. 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
--- NOTE | 2025-02-06 15:54 | Hospitalist Progress Note ---
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 Will plan for discharge tomorrow on 02/07. This patient is a 59-year-old male with history of Parkinson's disease who presents on 01/30 for placement. #Failure to thrive | ambulatory dysfunction Patient does not feel safe ambulating at home, struggling with ADLs. Hx of admission 11/08 for similar. 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 PT/OT consulted --> recommend rehab at discharge CM following, Auth submitted for [facility] on 02/05; approved on 02/06 Fall precautions #Dyskinesia due to Parkinson's disease | resting tremors Parkinson's diagnosis in 2018 with progressive weakness Aspiration precautions Continue amantadine, ropinirole, Crexont #Stage III pressure ulcer of buttocks (resolved) Patient still follows with the wound care clinic for history of stage III pressure ulcer Pressure ulcer POA, but largely healed over at this time; no signs of acute infection Wound care nurse consult appreciated #H/o orthostatic hypotension | dysautonomia - Continue midodrine Disposition: Plan to discharge tomorrow on 02/07 to [facility] Note: Patient hopes to eventually eventually get on the waitlist for [facility] for long-term placement. Admission and Anticipated Discharge Date Admission Date: January 30, 2025 Subjective Mr. Walters has no new complaints this morning. He reports he slept well la night, and has been eating and drinking well in the hospital (had a omelette and oatmeal this morning). His legs feel no different than they did yesterday. And he has been doing okay getting up out of bed to get into the chair. He denies any pain in his legs or body at this time. Discussed the need for long-term placement with both patient and patient's brother (Adam) at bedside. While patient reports that he would not like to be at [facility] long-term, the reason that they do not want to seek LTC facilities for the way so that patient's mother can visit him regularly. Brother (Bernardino) at bedside reports that they plan to put him on the waiting list for long-term placement at [facility]. ROS: Patient endorses lower extremity weakness and ambulatory dysfunction. Patient denies fever, chest pain, SOB, cough, abdominal pain, N/V/D, changes in urinary/bowel habits, or pain in his legs. Review of Systems Review of Systems: See HPI above Physical Exam Physical Exam: General: no acute distress; sitting upright in his chair watching TV and eating lunch; non-toxic appearing; cooperative; frail-appearing; SpO2 93% on room HEENT: normocephalic, atraumatic; PERRLA; wearing glasses; tongue smacking consistent with tardive dyskinesia; vision and hearing intact Neck: supple; trachea midline Skin: warm, dry without signs of tenting; no cyanosis; no rashes, bruising, lesions, or erythema noted CV: chest wall NTP; RRR; S1/S2 normal; no murmurs/rubs/gallops; pulses intact and symmetric at radial, DP, and PT Lungs: no acute respiratory distress; symmetrical chest wall expansion; clear breath sounds across all lung aguilar w/o adventitious sounds; no wheezing ABD: Soft, NTP; BS present; no rebound/guarding; no distention Back: Upper spine NTP; lower spine NTP MSK: Patient exhibits a resting tremor in his right hand; no edema noted in the LEs b/l, nonerythematous; 4/5 strength in the lower EXTR bilaterally when lifting her knees up against resistance sitting in the chair Neuro: A&Ox3; oriented to day of the week; flat mood and affect; garbled speech; coherent thought processes; no facial droop; he reports sensation is intact and symmetric in lower extremities bilaterally Results & Data Results & Data Vital Signs (Past 12 Hours) Vital Signs Temp Pulse Resp BP Pulse Ox O2 Del Method 02/06/25 15:19 36.6 C 79 20 133/88 99 Room Air 02/06/25 07:55 36.9 C 101 H 18 157/71 H 93 Room Air PG Care Time/CCT Total # of Minutes Spent Total Time Spent with Patient: Total time spent is greater than 50% in coordination of care (as documented) at patient's floor/unit and/or counseling patient: [place] [address] SUB INP/OBS CARE Patient Type Established Medical Decision Making Low Complexity Diagnoses Failure to thrive in adult R62.7 Ambulatory dysfunction R26.2 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
[2025-02-07 00:10] VITALS: RESP 16
[2025-02-07 07:02] VITALS: BP 108/71; PULSE 76; TEMP 98.2; O2SAT 94
--- NOTE | 2025-02-07 09:17 | Discharge Summary ---
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 #Failure to thrive | ambulatory dysfunction Patient does not feel safe ambulating at home, struggling with ADLs. Hx of admission 11/08 for similar. Recently discharged from [facility] 3 weeks [facility] D[facility] but has not been doing well since returning home. PT/OT consulted --> recommend rehab at discharge CM following, Auth submitted for [facility] on 02/05; approved on 02/06 Fall precautions #Dyskinesia due to Parkinson's disease | resting tremors Parkinson's diagnosis in 2018 with progressive weakness Aspiration precautions Continue amantadine, ropinirole, Crexont #Stage III pressure ulcer of buttocks (resolved) Patient still follows with the wound care clinic for history of stage III pressure ulcer Pressure ulcer POA, but largely healed over at this time; no signs of acute infection Wound care nurse consult appreciated #H/o orthostatic hypotension | dysautonomia - Continue midodrine Day of discharge 02/07: VSS Mr. Walters is in good spirits this morning. He reports he feels no different than he did yesterday. He slept well last night, and had a good samuel akfast this morning. He is having no pain at this time. His legs still feel weak, but overall he feels ready to go to [facility] today if transport can be arranged. ROS: Patient endorses lower extremity weakness and ambulatory dysfunction. Patient denies fever, chest pain, SOB, pleuritic CP, cough, abdominal pain, N/V/D, changes in urinary/bowel habits, or pain in his legs. Disposition: Medically stable for discharge Note: Patient hopes to eventually eventually get on the waitlist for [facility] for long-term placement. Notes For Next Care Provider Patient hospitalized for placement needs. Worsening ambulatory dysfunction due to dyskinesia from Parkinson's disease. Family/patient requested we look into long-term placement options. Admission HPI Per Admitting Provider Mr. Walters is a 59-year-old male with PMH of progressive supranuclear palsy (PSP), Parkinson's disease, vitamin B12 deficiency, urinary incontinence, and dysautonomia. He presented via EMS on 01/30 at the behest of the physician group for placement. Patient reports he does not feel safe ambulating at home due to lower extremity weakness, and is having trouble with his ADLs. Per patient's brother at bedside (Adam), this has been a progressive worsening of ambulatory dysfunction over the past several months. Additionally, his brother had to help lift him up out of his chair today, otherwise he would have fallen. He also had difficulty getting up to get water today. Patient ambulates with a walker at baseline. He was recently at [facility] for physical rehab, but was discharged 3.5 weeks ago. Since that time, they knew within the first week that him being home "probably would not work out". Additionally, he has a stage III pressure ulcer on his buttocks, and currently being treated by home health nurses/the wound care clinic. Patient denies any lower back/pain around the buttocks at this time. Patient's brother helps to manage the medications at home. Patient took his regular morning and midday medications today. No recent change in medications. Patient denies smoking or tobacco use. Patient is mildly hypertensive at 144/93 at time of admission; vitals otherwise stable. 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 Patient denies fever, chills, night-sweats, dizziness/lightheadedness, headache, chest pain, chest palpitations, cough, abdominal pain, N/V/D, or pain in the legs. Admission Exam Per Admitting Provider General: no acute distress; brother and mother at bedside; non-toxic appearing; cooperative; SpO2 93% on room HEENT: normocephalic, atraumatic; PERRLA; wearing glasses; vision and hearing intact Neck: supple; trachea midline Skin: warm, dry without signs of tenting; no cyanosis; no rashes, bruising, lesions, or erythema noted CV: chest wall NTP; RRR; S1/S2 normal; no murmurs/rubs/gallops; pulses intact and symmetric at radial, DP, and PT Lungs: no acute respiratory distress; symmetrical chest wall expansion; clear breath sounds across all lung aguilar w/o adventitious sounds; no wheezing ABD: Soft, NTP; BS present; no rebound/guarding; no distention Back: Upper spine NTP; lower spine NTP Buttocks: Stage III sacral ulcer appreciated on the medial aspect of the left buttocks; cratered, erythematous; however, no purulent drainage or signs of acute infection MSK: Patient exhibits a resting tremor in his left hand; no edema noted in the LEs b/l, nonerythematous; 1/5 strength in the lower extremities bilaterally when asked to lift legs off the bed supine; 3/5 strength with plantar/dorsiflexion in the ankles bilateral; patient demonstrates ability to flex his knees ~45 degrees bilaterally Neuro: A&Ox3; oriented to day of the week; flat mood and affect; fluent speech; he reports sensation is intact and symmetric in lower extremities bilaterally Discharge Exam General: no acute distress; sitting upright in his chair watching TV and eating breakfast; non-toxic appearing; cooperative; frail-appearing; SpO2 94% on room HEENT: normocephalic, atraumatic; PERRLA; wearing glasses; tongue smacking consistent with tardive dyskinesia; vision and hearing intact Neck: supple; trachea midline Skin: warm, dry without signs of tenting; no cyanosis; no rashes, bruising, lesions, or erythema noted CV: chest wall NTP; RRR; S1/S2 normal; no murmurs/rubs/gallops; pulses intact and symmetric at radial, DP, and PT Lungs: no acute respiratory distress; symmetrical chest wall expansion; clear breath sounds across all lung aguilar w/o adventitious sounds; no wheezing ABD: Soft, NTP; BS present; no rebound/guarding; no distention Back: Upper spine NTP; lower spine NTP MSK: Patient exhibits a resting tremor in his right hand; no edema noted in the LEs b/l, nonerythematous; 4/5 strength in the lower EXTR bilaterally when lift ing her knees up against resistance sitting in the chair Neuro: A&Ox3; oriented to day of the week; flat mood and affect; garbled speech; coherent thought processes; no facial droop; he reports sensation is intact and symmetric in lower extremities bilaterally Discharge Plan Discharge Items Patient Disposition: Transfer [facility] Fac Reason For Visit: AMBULATORY DYSFUNCTION, PLACEMENT Discharge Diagnosis: Ambulatory dysfunction, lower extremity weakness, awaiting long-term placement Condition on Discharge: Fair Activity: As commented below Activity Comment: Gradually increase activity per PT/OT recommendations Non-emergency contact: Primary Care Provider Call non-emergency contact if: you have any medication questions and your symptoms worsen Follow-up/Referrals: Jamie Morfin MD [Primary Care Provider] - Diet: Regular Diet Texture: Dental soft (bite-sized) Addtl Attending Provider Instructions: You were hospitalized at [facility] from 01/30 to 02/07 due to leg weakness and difficulty with ambulation. You opted for admission while caseworker intake look to find long-term placement for you. Unfortunately, many fci facilities (such as [facility] and [facility]) do not have beds open at this time. We will plan to discharge you to [facility] upon discharge, we recommend you continue to work with PT/OT to build up strength and conditioning of your lower extremities. You may continue to take all of your medications as previously prescribed prior to hospitalization Please plan to follow-up with your PCP in the next 7 to 10 days for a transitional care appointment. If you develop any new or worsening symptoms, such as fever, chills, chest pain, trouble breathing, intractable lower back pain, nausea, vomiting, fainting spells, or inability to walk, please return to the emergency department immediately. It was a pleasure taking care of you. Please reach out with any questions or concerns. Sincerely, The Hospital medicine team at [facility] Pending Studies at Discharge: No Stand-Alone Forms: My [facility] Skilled Items Patient informed of condition?: Yes DNR: No Discharge Level of Care: Skilled Communicable Disease: No Discharge Prognosis: Stable Lines: None Urinary Catheter: No Medications and DC Order Prescriptions: Continued amantadine HCl 100 mg capsule 100 mg PO BID Qty: 180 1RF gabapentin 100 mg capsule 100 mg PO TID 30 Days Qty: 90 2RF Rx Instructions: TAKES AT 11AM,4PM,9PM ropinirole 2 mg tablet 2 mg PO TID 90 Days Qty: 270 2RF Rx Instructions: TAKES AT 11AM,4PM,9PM cholecalciferol (vitamin D3) 1,000 unit capsule 1,000 units PO QAM Crexont 87.5-350 mg capsule,IR -extend rel,biphase 2 cap PO TID Rx Instructions: WILL NEED TO BRING OWN MED IF ADMITTED polyethylene glycol 3350 [Miralax] 17 gram/dose powder 17 g PO DAILY PRN (Reason: constipation) Qty: 476 1RF acetaminophen [Tylenol] 325 mg tablet 650 mg PO QID PRN (Reason: Fever Or Pain) tamsulosin 0.4 mg capsule 0.4 mg PO QAM midodrine 2.5 mg tablet 2.5 mg PO TID Rx Instructions: TAKES AT 11AM,4PM,9PM ascorbic acid (vitamin C) [Vitamin C] 1,000 mg Tablet 1,000 mg PO QAM finasteride 5 mg tablet 5 mg PO QAM cyanocobalamin (vitamin B-12) 1,000 mcg Tablet 1,000 mcg PO QAM multivitamin with folic acid [Daily-Joselin (with folic acid)] 400 mcg tablet 1 tab PO QAM nystatin [Klayesta] 100,000 unit/gram powder 1 applic TOPICAL Q8 PRN (Reason: Skin Irritation) polyethylene glycol 3350 [Miralax] 17 gram Powder In Packet 17 g PO DAILY Qty: 30 0RF Hold Instructions: Provider's Order - while having diarrhea loratadine [Claritin] 10 mg Tablet 10 mg PO QAM Discharge Orders: Discharge Order (Routine); Ordered 02/07/25 Ordered By: Dario Alexander Admission Data Admit Date/Time: 01/30/25 17:31 Attending Provider: Gianfranco Boudreaux Admit Provider: Russell Burnette Primary Care Provider: Jamie Morfin V. Other Providers: Russell Burnette; [facility]; [facility]; [facility], [facility] Stay Data Consultations 01/30/25 17:02 ED Decision to Admit Stat Pending Results Patient Have Any Pending Studies at Discharge: No Discharge Instructions Given to Patient (Per Discharging Provider) You were hospitalized at [facility] from 01/30 to 02/07 due to leg weakness and difficulty with ambulation. You opted for admission while caseworker intake look to find long-term placement for you. Unfortunately, many fci facilities (such as [facility] and [facility]) do not have beds open at this time. We will plan to discharge you to [facility] upon discharge, we recommend you continue to work with PT/OT to build up strength and conditioning of your lower extremities. You may continue to take all of your medications as previously prescribed prior to hospitalization Please plan to follow-up with your PCP in the next 7 to 10 days for a transitional care appointment. If you develop any new or worsening symptoms, such as fever, chills, chest pain, trouble breathing, intractable lower back pain, nausea, vomiting, fainting spells, or inability to walk, please return to the emergency department immediately. It was a pleasure taking care of you. Please reach out with any questions or concerns. 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
== END 2025-02-07 11:45 | DRG 57 ==
LOC: ED 14:54 → SUATTDRO 17:31 → 3N 17:31
DX: E87.6 Hypokalemia; G20.B1 Parkinson's disease with dyskinesia, without mention of fluctuations; G90.1 Familial dysautonomia [Riley-Day]; Z87.2 Personal history of diseases of the skin and subcutaneous tissue; R62.7 Adult failure to thrive; G23.1 Progressive supranuclear ophthalmoplegia [Steele-Richardson-Olszewski]; Z88.7 Allergy status to serum and vaccine